=== PATIENT | female | born 1940 | race Caucasian/White ===

== ENCOUNTER 2016-07-20 10:30 | Emergency (ER) | payer BC ==
[2016-07-20 10:36] VITALS: BP 163/93; PULSE 72; TEMP 98.6; BMI 32.5
[2016-07-20] MEDS ORDERED: ALBUTEROL SO4 2.5/IPRATROPIUM 0.5 INH SOL 3 ML VIAL.NEB. NEB ONE ×2 (11:09→11:13)
[2016-07-20] MEDS ORDERED: predniSONE 20 MG TABLET (UD) PO ONE (11:10)
[2016-07-20] MEDS ORDERED: predniSONE 20 MG TABLET (UD) ONE (11:13)
--- NOTE | 2016-07-20 11:16 | PDOC ---
History of Present Illness - General Chief Complaint: Cold Symptoms Stated Complaint: COUGH Time Seen by Provider: 07/20/16 11:06 History Source: Patient Exam Limitations: No Limitations - History of Present Illness Initial Comments: 07/20/16 19:02 76 yr female with cough for 4 days productive phlegm. no chest pain or fever, no shortness of breath. Pt is a non smoker, history of HTN. Pt using OTC meds with no relief. Past History - Past Medical History Allergies/Adverse Reactions: Allergies Allergy/AdvReac Type Severity Reaction Status Date / Time No Known Allergies Allergy Verified 07/20/16 10:36 Home Medications: Ambulatory Orders Albuterol Sulfate Inhaler - [Ventolin HFA Inhaler -] 1 - 2 inh PO Q4H #1 inhaler 07/20/16 Azithromycin [Zithromax 250mg Tablets -] 250 mg PO UTDICT #6 tab 07/20/16 Prednisone [Deltasone -] 40 mg PO DAILY #10 tablet 07/20/16 Anemia: No Asthma: No Cardiac Disorders: No GI Disorders: Yes (GERD) HTN: Yes - Surgical History Abdominal Surgery: Yes - Family Disease History Comment:: 07/20/16 19:03 unk - Psycho/Social/Smoking Cessation Hx Anxiety: No Suicidal Ideation: No Smoking Status: No Smoking History: Never smoked Have you smoked in the past 12 months: No Number of Cigarettes Smoked Daily: 0 Information on smoking cessation initiated: No Hx Alcohol Use: No Drug/Substance Use Hx: No Substance Use Type: None Hx Substance Use Treatment: No Respiratory Specific PMHX - Complaint Specific PMHX Angina: No Bronchitis: Yes Pneumonia: No Pulmonary Embolus: No TB (Tuberculosis): No Review of Systems - Review of Systems Able to Perform ROS?: Yes Is the patient limited Kazakh proficient: No Constitutional: No: Symptoms Reported HEENTM: No: Symptoms Reported Respiratory: Yes: See HPI, Cough *Physical Exam - Vital Signs Last Vital Signs Temp Pulse Resp BP Pulse Ox 98.6 F 72 18 163/93 97 07/20/16 10:31 07/20/16 10:31 07/20/16 10:31 07/20/16 10:31 07/20/16 10:31 - Physical Exam General Appearance: Yes: Nourished, Appropriately Dressed HEENT: positive: EOMI, NAVEDEP, Normal ENT Inspection, TMs Normal, Pharynx Normal Neck: positive: Supple. negative: Tender Respiratory/Chest: positive: Rhonchi. negative: Wheezing Cardiovascular: positive: Regular Rhythm, Regular Rate Gastrointestinal/Abdominal: positive: Normal Bowel Sounds, Soft Musculoskeletal: positive: Normal Inspection Extremity: positive: Normal Capillary Refill, Normal Inspection, Normal Range of Motion Integumentary: positive: Normal Color, Dry, Warm Neurologic: positive: Fully Oriented, Alert, Normal Mood/Affect, Normal Response , Motor Strength 5/5 Medical Decision Making - Medical Decision Making 07/20/16 19:03 cc: cough productive phlegm getting worse scattered coarse rhonchi on exam will treat for bronchitis pt stable, stable vitals speaking clearly no distress *DC/Admit/Observation/Transfer Diagnosis at time of Disposition: Bronchitis - Discharge Dispostion Disposition: HOME Condition at time of disposition: Stable - Prescriptions Prescriptions: Prednisone [Deltasone -] 40 mg PO DAILY #10 tablet Albuterol Sulfate Inhaler - [Ventolin HFA Inhaler -] 1 - 2 inh PO Q4H #1 inhaler Azithromycin [Zithromax 250mg Tablets -] 250 mg PO UTDICT #6 tab - Referrals Referrals: Holger Wetzel MD [Primary Care Provider] - - Patient Instructions Printed Discharge Instructions: DI for Acute Bronchitis Additional Instructions: drink pleanty of water to stay well hydrated take the medications as prescribed follow with your doctor on Friday or Friday for follow up Return if any worsening symptoms
== END 2016-07-20 11:29 | disposition home or self-care (01) ==
LOC: JERFT 10:30
PROC: 3E0F7GC Introduction of Other Therapeutic Substance into Respiratory Tract, Via Natural or Artificial Opening (ICD-10-PCS; principal; 2016-07-20)
DX: J20.9 Acute bronchitis, unspecified (principal); I10 Essential (primary) hypertension
CPT/HCPCS: 94640; 99281-25

== ENCOUNTER 2017-08-13 13:11 | Emergency (ER) | payer BC ==
[2017-08-13 13:20] VITALS: BP 177/80; PULSE 66; TEMP 97.4; BMI 33.8
--- NOTE | 2017-08-13 15:44 | PDOC ---
History of Present Illness - General Chief Complaint: Wound Stated Complaint: LT ANKLE PAIN Time Seen by Provider: 08/13/17 15:44 - History of Present Illness Initial Comments: 08/13/17 18:00 The patient is a 77 year old female with no significant past medical history who presents to the ED complaining of approximately 1 month of a left ankle wound with surrounding pain. She states she was seen by her doctor in the past, who prescribed her a topical treatment without relief. No redness or warmth. Denies edema. No fever or chills. No nausea, vomiting, or diarrhea. Denies trauma or injury. Denies CP/SOB. Past History - Past Medical History Allergies/Adverse Reactions: Allergies Allergy/AdvReac Type Severity Reaction Status Date / Time No Known Allergies Allergy Verified 08/13/17 13:16 Home Medications: Ambulatory Orders Albuterol Sulfate Inhaler - [Ventolin HFA Inhaler -] 1 - 2 inh PO Q4H #1 inhaler 07/20/16 Azithromycin [Zithromax 250mg Tablets -] 250 mg PO UTDICT #6 tab 07/20/16 predniSONE [Deltasone -] 40 mg PO DAILY #10 tablet 07/20/16 Anemia: No Asthma: No Cardiac Disorders: No COPD: No GI Disorders: Yes (GERD) HTN: Yes - Surgical History Abdominal Surgery: Yes - Suicide/Smoking/Psychosocial Hx Smoking Status: No Smoking History: Never smoked Have you smoked in the past 12 months: No Number of Cigarettes Smoked Daily: 0 Hx Alcohol Use: No Drug/Substance Use Hx: No Substance Use Type: None Hx Substance Use Treatment: No Review of Systems - Review of Systems Comments:: 08/13/17 18:03 GENERAL/CONSTITUTIONAL: No fever or chills. No weakness. HEAD, EYES, EARS, NOSE AND THROAT: No change in vision. No ear pain or discharge. No sore throat. GASTROINTESTINAL: No nausea, vomiting, diarrhea or constipation. GENITOURINARY: No dysuria, frequency, or change in urination. CARDIOVASCULAR: No chest pain or shortness of breath. RESPIRATORY: No cough, wheezing, or hemoptysis. MUSCULOSKELETAL: No joint or muscle swelling or pain. No neck or back pain. SKIN: + L ankle ulcer NEUROLOGIC: No headache, vertigo, loss of consciousness, or change in strength/ sensation. ENDOCRINE: No increased thirst. No abnormal weight change. HEMATOLOGIC/LYMPHATIC: No anemia, easy bleeding, or history of blood clots. ALLERGIC/IMMUNOLOGIC: No hives or skin allergy. *Physical Exam - Vital Signs Last Vital Signs Temp Pulse Resp BP Pulse Ox 97.4 F L 66 15 177/80 98 08/13/17 13:16 08/13/17 13:16 08/13/17 13:16 08/13/17 13:16 08/13/17 13:16 - Physical Exam Comments: 08/13/17 18:05 GENERAL: Awake, alert, and fully oriented, in no acute distress HEAD: No signs of trauma EYES: PERRLA, EOMI, sclera anicteric, conjunctiva clear ENT: Poor dentition, oropharynx clear without exudates. Moist mucosa NECK: Normal ROM, supple, no lymphadenopathy, JVD, or masses LUNGS: Breath sounds equal, clear to auscultation bilaterally. No wheezes, and no crackles HEART: Regular rate and rhythm, normal S1 and S2, no murmurs, rubs or gallops ABDOMEN: Soft, nontender, normoactive bowel sounds. No guarding, no rebound. No masses EXTREMITIES: Normal range of motion, no edema. No clubbing or cyanosis. No cords, erythema, or tenderness. 2+ DP and radial pulses. Normal cap refill in UE /LE. BACK: No midline spinal tenderness in cervical/thoracic/lumbar region NEUROLOGICAL: Normal speech, cranial nerves intact, negative pronator drift, 5/ 5 strength in all 4 extremities, normal sensation to light touch in all 4 extremities, normal cerebellar exam, normal gait using walker, normal reflexes and tone SKIN: L lateral malleolus with 1 x 0.5cm oval clean punched out, dry, ulcer with no evidence of erythema, warmth, purulent discharge. Otherwise, skin is warm, Dry, normal turgor, no rashes or lesions noted. ED Treatment Course - RADIOLOGY Radiology Studies Ordered: Category Date Time Status ANKLE & FOOT-LEFT* [RAD] Stat Radiology 08/13/17 14:43 Ordered Medical Decision Making - Medical Decision Making 08/13/17 19:01 77-year-old female with a history of hypertension, GERD presents emergency Department with 1 month of left ankle ulcer. Vitals with elevated blood pressure in triage, on my exam 150/84. Exam consistent with likely venous stasis ulcer, does not appear to be infected. Patient given Tylenol for pain control and referred to Dr. Castro. Patient requests discharge home. I discussed the physical exam findings, ancillary test results and final diagnoses with the patient. I answered all of the patient's questions. The patient was satisfied with the care received and felt comfortable with the discharge plan and treatment plan. The patient will call their primary care physician within 24 hours to arrange follow-up and will return to the Emergency Department with any new, persistent or worsening symptoms. *DC/Admit/Observation/Transfer Diagnosis at time of Disposition: Ankle ulcer - Discharge Dispostion Disposition: HOME Decision to Admit order: No - Referrals Referrals: Holger Wetzel MD [Primary Care Provider] - Pedrito Castro MD [Staff Physician] - - Patient Instructions Printed Discharge Instructions: Venous Stasis Ulcer Additional Instructions: Call Dr. Castro's office for a follow up appointment with a vascular doctor within 1 week. Follow up with your primary doctor within 1 week. Return to the emergency department if you have any new, worsening, or concerning symptoms. - Post Discharge Activity - Attestations Physician Attestion: 08/13/17 19:06 I, Dr. Mia Magana MD, attest that this document has been prepared under my direction and personally reviewed by me in its entirety. I further attest, that it accurately reflects all work, treatment, procedures and medical decision -making performed by me.
[2017-08-13] MEDS ORDERED: ACETAMINOPHEN 500 MG TABLET (FP) PO ONE (18:57)
[2017-08-13] MEDS ORDERED: ACETAMINOPHEN 325 MG TABLET (FP) ONE (18:58)
== END 2017-08-13 19:40 | disposition home or self-care (01) ==
LOC: JER 13:11
DX: I83.023 Varicose veins of left lower extremity with ulcer of ankle (principal); L97.321 Non-pressure chronic ulcer of left ankle limited to breakdown of skin; I10 Essential (primary) hypertension; K21.9 Gastro-esophageal reflux disease without esophagitis
CPT/HCPCS: 73610-TC-LT-FY; 73630-TC-LT; 99281-25

== ENCOUNTER 2018-01-21 07:53 | Inpatient (IN) | payer BC, OTHER ==
--- NOTE | 2018-01-21 08:28 | PDOC ---
History of Present Illness - History of Present Illness Initial Comments: This patient is a 77 year female with PMHx of GERD and HTN, who presents with diarrhea, abdominal pain since last night. Patient states that she had [employer] last night. She states that last night she began experiencing abdominal pain and multiple episodes of diarrhea. She also complains of diffuse b/l leg and back pain, cough, chills, and nausea. She states that she took an immodium this morning and called an ambulance because she was worried. She states that her diarrhea has stopped since she arrived. She denies any vomiting, fever. Allergies: None Past surgical history: None reported Social History: No alcohol, tobacco or drug use reported <Poonam Dimas - Last Filed: 01/21/18 09:36> <Di Prakash - Last Filed: 01/21/18 10:23> - General Chief Complaint: Pain Stated Complaint: ABD PAIN Time Seen by Provider: 01/21/18 08:09 Past History <Poonam Dimas - Last Filed: 01/21/18 09:36> - Past Medical History Anemia: No Asthma: No Cardiac Disorders: No COPD: No GI Disorders: Yes (GERD) HTN: Yes - Surgical History Abdominal Surgery: Yes - Suicide/Smoking/Psychosocial Hx Smoking Status: No Smoking History: Never smoked Have you smoked in the past 12 months: No Number of Cigarettes Smoked Daily: 0 Information on smoking cessation initiated: No Hx Alcohol Use: No Drug/Substance Use Hx: No Substance Use Type: None Hx Substance Use Treatment: No <Di Prakash - Last Filed: 01/21/18 10:23> - Past Medical History Allergies/Adverse Reactions: Allergies Allergy/AdvReac Type Severity Reaction Status Date / Time No Known Allergies Allergy Verified 01/21/18 08:03 Home Medications: Ambulatory Orders Metoprolol Succinate [Toprol XL -] 50 mg PO BID 09/05/17 Losartan/Hydrochlorothiazide [Losartan-Hctz 100-25 mg Tab] 1 each PO DAILY #14 tablet 10/08/17 Review of Systems - Review of Systems Comments:: GENERAL/CONSTITUTIONAL: No fever, +chills. No weakness. HEAD, EYES, EARS, NOSE AND THROAT: No change in vision. No ear pain or discharge. No sore throat. CARDIOVASCULAR: No chest pain or shortness of breath. RESPIRATORY: No cough, wheezing, or hemoptysis. GASTROINTESTINAL: +nausea, no vomiting,+ diarrhea, no constipation. GENITOURINARY: No dysuria, frequency, or change in urination. MUSCULOSKELETAL: + b/l leg pain. + back pain. No neck pain SKIN: No rash NEUROLOGIC: No headache, vertigo, loss of consciousness, or change in strength/ sensation. ENDOCRINE: No increased thirst. No abnormal weight change. HEMATOLOGIC/LYMPHATIC: No anemia, easy bleeding, or history of blood clots. ALLERGIC/IMMUNOLOGIC: No hives or skin allergy. <Poonam Dimas - Last Filed: 01/21/18 09:36> *Physical Exam - Vital Signs Last Vital Signs Temp Pulse Resp BP Pulse Ox 98.4 F 101 H 16 138/73 94 L 01/21/18 07:53 01/21/18 07:53 01/21/18 07:53 01/21/18 07:53 01/21/18 07:53 - Physical Exam Comments: GENERAL: Awake, alert, and fully oriented, in no acute distress HEAD: No signs of trauma EYES: PERRLA, EOMI, sclera anicteric, conjunctiva clear ENT: Auricles normal inspection, hearing grossly normal, nares patent, oropharynx clear without exudates. Dry mucosa LUNGS: Breath sounds equal, clear to auscultation bilaterally. No wheezes, and no crackles HEART: Regular rate and rhythm, normal S1 and S2, no murmurs, rubs or gallops ABDOMEN: Soft, nontender, normoactive bowel sounds. No guarding, no rebound. No masses EXTREMITIES: Normal range of motion, no edema. No clubbing or cyanosis. No cords, erythema, or tenderness NEUROLOGICAL: Cranial nerves II through XII grossly intact. Normal speech, normal gait SKIN: Warm, Dry, normal turgor, no rashes or lesions noted. <Poonam Dimas - Last Filed: 01/21/18 09:36> - Vital Signs Last Vital Signs Temp Pulse Resp BP Pulse Ox 98.4 F 101 H 16 138/73 94 L 01/21/18 07:53 01/21/18 07:53 01/21/18 07:53 01/21/18 07:53 01/21/18 07:53 <Di Prakash - Last Filed: 01/21/18 10:23> Heart Score/ECG Review - ECG Intrepretation Comment:: 01/21/18 10:23 sinus at 98, nl axis, nl interval, no acute st/t wave findings <Di Prakash - Last Filed: 01/21/18 10:23> ED Treatment Course - LABORATORY CBC & Chemistry Diagram: 01/21/18 08:39 01/21/18 08:39 - ADDITIONAL ORDERS Additional order review: 01/21/18 08:39 RBC 4.64 MCV 93.5 MCHC 32.6 RDW 15.0 MPV 8.1 Neutrophils % 91.6 H D Lymphocytes % 2.5 L D Monocytes % 5.4 Eosinophils % 0.3 D Basophils % 0.2 - Medications Given in the ED: ED Medications Discontinued Medications Generic Name Dose Route Start Last Admin Trade Name Freq PRN Reason Stop Dose Admin Sodium Chloride 1,000 ml 01/21/18 08:36 01/21/18 09:02 Normal Saline - IV 01/21/18 08:37 1,000 ml ONCE ONE Administration <Poonam Dimas - Last Filed: 01/21/18 09:36> - LABORATORY CBC & Chemistry Diagram: 01/21/18 08:39 01/21/18 08:39 <Di Prakash - Last Filed: 01/21/18 10:23> Medical Decision Making - Medical Decision Making 01/21/18 09:04 a/p: 77yo female with multiple episodes of diarrhea this am. -no n/v -no f/c -no abd pain -had cramping with diarrhea earlier today -c/o dry cough -will send labs, ivf hydration -abd is soft and nontender -pt is nontoxic in appearance -suspect viral syndrome -will send labs, cxr, ekg -will monitor and reassess 01/21/18 09:55 pt with RLL infiltrate on cxr - pt with cough, concerning for PNA elevated WBC will admit for iv abx pmd is dr. llanes - call placed to dr. erazo blood cultures and lactate added 01/21/18 10:[address] Erazo who accepts pt to service Pt with SIRS and pna - sepsis without septic shock <Di Prakash - Last Filed: 01/21/18 10:23> *DC/Admit/Observation/Transfer - Attestations Scribe Attestion: 01/21/18 09:38 Documentation prepared by Poonam Dimas, acting as medical instrument technician for Di Prakash DO. <Poonam Dimas - Last Filed: 01/21/18 09:36> - Discharge Dispostion Decision to Admit order: Yes - Attestations Physician Attestion: 01/21/18 09:56 I, Dr. Di Prakash DO, attest that this document has been prepared under my direction and personally reviewed by me in its entirety. I further attest, that it accurately reflects all work, treatment, procedures and medical decision -making performed by me. <Di Prakash - Last Filed: 01/21/18 10:23> Diagnosis at time of Disposition: Pneumonia, Sepsis - Discharge Dispostion Condition at time of disposition: Guarded - Referrals Referrals: Hloger Llanes MD [Primary Care Provider] - - Patient Instructions - Post Discharge Activity
[2018-01-21] MEDS ORDERED: SODIUM CHLORIDE 0.9% 1000 ML INFUS.BAG IV ONE ×3 (08:36→15:07)
[2018-01-21 09:06] LABS: BASO % 0.2 % (0-2.0); EOS % 0.3 % (0-4.5); HEMATOCRIT 43.4 % (32.4-45.2); HEMOGLOBIN 14.2 GM/dL (10.7-15.3); LYMPH % 2.5 % (8-40); MCH 30.5 pg (25.7-33.7); MCHC 32.6 g/dl (32.0-36.0); MEAN CELL VOLUME 93.5 fl (80-96); MEAN PLT VOLUME 8.1 fl (7.5-11.1); MONO % 5.4 % (3.8-10.2); NEUT % 91.6 % (42.8-82.8); PLATELET COUNT 232 K/MM3 (134-434); RBC 4.64 M/mm3 (3.60-5.2); WHITE BLOOD COUNT 20.3 K/mm3 (4.0-10.0)
[2018-01-21 09:40] LABS: ALBUMIN 3.2 g/dl (3.4-5.0); ALK PHOS 108 U/L (45-117); ANION GAP 8 MMOL/L (8-16); BILIRUBIN,TOTAL 0.8 mg/dL (0.2-1); BLOOD UREA NITROGEN 19 mg/dL (7-18); CALCIUM 8.9 mg/dL (8.5-10.1); CHLORIDE 102 mmol/L (98-107); CO2 26 mmol/L (21-32); CREATININE 0.9 mg/dL (0.55-1.3); GLUCOSE,RANDOM 177 mg/dL (74-106); LIPASE 103 U/L (73-393); MAGNESIUM 1.6 mg/dL (1.8-2.4); POTASSIUM 3.8 mmol/L (3.5-5.1); SGOT/AST 53 U/L (15-37); SGPT/ALT 60 U/L (13-61); SODIUM 137 mmol/L (136-145); TOT PROT 7.2 g/dl (6.4-8.2)
[2018-01-21] MEDS ORDERED: AZITHROMYCIN IVPB 500 MG in DEXTROSE 5%-WATER - 250 ML IVPB ONE (09:54)
[2018-01-21] MEDS ORDERED: CEFTRIAXONE 1 GM in DEXTROSE 5%-WATER - 100 ML IVPB ONE (09:54)
[2018-01-21] MEDS ORDERED: CEFTRIAXONE 1 GM/50 ML BAG ONE (10:07)
[2018-01-21] MEDS ORDERED: AZITHROMYCIN IVPB 500 MG/250 ML BAG IVPB ONE (10:07)
[2018-01-21 11:05] LABS: ANISOCYTOSIS 1+; MACROCYTOSIS 1+; PLATELET ESTIMATE NORMAL
[2018-01-21] MEDS ORDERED: ONDANSETRON 4 MG/2 ML VIAL IVPUSH PRN (11:42)
[2018-01-21] MEDS ORDERED: ALBUTEROL SO4 0.083% IH SOL 2.5 MG/3 ML VIAL.NEB. NEB PRN (11:42)
[2018-01-21] MEDS ORDERED: ACETAMINOPHEN 325 MG TABLET (FP) PO PRN (11:42)
[2018-01-21] MEDS ORDERED: SODIUM CHLORIDE 1,000 ML IV SCH (11:45)
--- NOTE | 2018-01-21 11:53 | HP ---
Admitting History and Physical - Primary Care Physician PCP: Holger Wetzel - Admission Chief Complaint: I feel sick History of Present Illness: Ms Valle is a very pleasant 77 year old female who comes with nausea, diarrhea , and coughing. She says the coughing began two weeks ago. It was minimally productive with white sputum. She saw Dr Wetzel and finished a course of zithromax as an outpatient. Initially she felt better but then the coughing returned. She was going to follow up next week, however this morning she had an episode of nausea without vomiting and diarrhea. She says she went to the bathroom 3 times and the stool was soft and formed, not loose or liquid. But since it was so frequent she took some imodium and came in. Currently aside from the cough she says she is feeling fine. The nausea has resolved and she is not having pain. She denies fevers, chills, lightheadedness, dizziness, passing out, chest pain or pressure, shortness of breath, abdominal pain, difficulty or pain on urination, or swelling. History Source: Patient Limitations to Obtaining History: No Limitations - Past Medical History Cardiovascular: Yes: HTN - Past Surgical History Past Surgical History: Yes: None - Smoking History Smoking history: Never smoked Have you smoked in the past 12 months: No Aproximately how many cigarettes per day: 0 - Alcohol/Substance Use Hx Alcohol Use: No History of Substance Use: reports: None - Social History Usual Living Arrangement: Yes: Alone ADL: Independent History of Recent Travel: No Home Medications - Allergies Allergies/Adverse Reactions: Allergies Allergy/AdvReac Type Severity Reaction Status Date / Time No Known Allergies Allergy Verified 01/21/18 08:03 - Home Medications Home Medications: Ambulatory Orders Metoprolol Succinate [Toprol XL -] 50 mg PO BID 09/05/17 Losartan/Hydrochlorothiazide [Losartan-Hctz 100-25 mg Tab] 1 each PO DAILY #14 tablet 10/08/17 Family Disease History - Family Disease History Family Disease History: Diabetes: Mother Review of Systems Findings/Remarks: full review of systems obtained, as per HPI and otherwise negative Physical Examination Vital Signs: Vital Signs Temperature 36.9 C 01/21/18 07:53 Pulse Rate 101 H 01/21/18 07:53 Respiratory Rate 16 01/21/18 07:53 Blood Pressure 138/73 01/21/18 07:53 O2 Sat by Pulse Oximetry (%) 94 L 01/21/18 07:53 Constitutional: Yes: No Distress, Calm, Obese Eyes: Yes: Conjunctiva Clear, EOM Intact, PERRL HENT: Yes: Atraumatic, Normocephalic Cardiovascular: Yes: Regular Rate and Rhythm. No: Gallop, Murmur, Rub Respiratory: Yes: Regular, CTA Bilaterally, Other (no egophony). No: Rales, Rhonchi, Wheezes Gastrointestinal: Yes: Normal Bowel Sounds, Soft. No: Distention, Tenderness Extremities: Yes: WNL Edema: No Labs: CBC, BMP 01/21/18 08:39 01/21/18 08:39 Imaging - Results Chest X-ray: Report Reviewed, Image Reviewed EKG: Image Reviewed Problem List - Problems (1) Pneumonia Assessment/Plan: -patient with CAP that failed outpatient therapy -admit to med/surg -start rocephin and zithromax -recent paper showing benefit of solumedrol in treating pneumonia -will start solumedrol 40mg IV daily, benefit from 5 day course -lactobacillus Code(s): J18.9 - PNEUMONIA, UNSPECIFIED ORGANISM (2) Sepsis Assessment/Plan: -secondary to pneumonia -as evidenced by lactic acidosis, leukocytosis, and tachycardia -treat underlying infection -hydration with IVF Code(s): A41.9 - SEPSIS, UNSPECIFIED ORGANISM (3) Hypertension Assessment/Plan: -controlled -will start outpatient losartan/HCTZ and toprol xl -however low threshold to stop HCTZ Code(s): I10 - ESSENTIAL (PRIMARY) HYPERTENSION (4) Lactic acidosis Assessment/Plan: -secondary to pneumonia -hydration with IVF Code(s): E87.2 - ACIDOSIS (5) Diarrhea Assessment/Plan: -sounds more like loose stool than diarrhea -complicated by the fact patient took imodium -will monitor, especially if leukocytosis worsens -if recurs will check for c diff since recently on zithromax Code(s): R19.7 - DIARRHEA, UNSPECIFIED
[2018-01-21] MEDS: methylPREDNISolone NA SUCC 40 MG/1 ML VIAL IVPUSH SCH (12:13)
[2018-01-21] MEDS ORDERED: methylPREDNISolone NA SUCC 40 MG/1 ML VIAL ONE (12:15)
[2018-01-21] MEDS ORDERED: ACETAMINOPHEN 325 MG TABLET (FP) ONE (12:15)
--- NOTE | 2018-01-21 13:00 | EKG ---
Test Reason : Blood Pressure : / mmHG Vent. Rate : 098 BPM Atrial Rate : 098 BPM P-R Int : 162 ms QRS Dur : 074 ms QT Int : 330 ms P-R-T Axes : 056 017 058 degrees QTc Int : 421 ms POOR DATA QUALITY, INTERPRETATION MAY BE ADVERSELY AFFECTED NORMAL SINUS RHYTHM ANTEROSEPTAL INFARCT (CITED ON OR BEFORE 08-OCT-2017) ABNORMAL ECG WHEN COMPARED WITH ECG OF 08-OCT-2017 17:27, VENT. RATE HAS INCREASED BY 36 BPM Confirmed by SINTIA HOLLINS, CAROLINE ([id number]) on 01/21/2018 1:00:18 PM Referred By: Confirmed By:CAROLINE PATRICIO MD
[2018-01-21 15:21] LABS: URINE APPEARANCE SLCLOUDY; URINE BILIRUBIN NEGATIVE (<2.0 mg/dL); URINE COLOR YELLOW; URINE GLUCOSE (UA) NEGATIVE (NEGATIVE); URINE KETONE NEGATIVE (NEGATIVE); URINE LEUK ESTERASE 1+ (NEGATIVE); URINE NITRITE NEGATIVE (NEGATIVE); URINE PROTEIN NEGATIVE (NEGATIVE); URINE UROBILINOGEN NEGATIVE mg/dL (0.2-1.0)
[2018-01-21] MEDS: LACTOBACILLUS ACIDOPHILUS 1 TABLET PO SCH (15:21)
[2018-01-21 15:45] LABS: EPI CELLS RARE /HPF (FEW); URINE BACTERIA RARE /hpf (NONE SEEN); URINE HYALINE CAST 3 /lpf; URINE MUCUS RARE
[2018-01-21] MEDS ORDERED: SODIUM CHLORIDE 500 ML IV STA (23:09)
[2018-01-22 00:16] VITALS: BMI 35.7
[2018-01-22 08:13] LABS: BASO % 0.2 % (0-2.0); HEMATOCRIT 37.9 % (32.4-45.2); LYMPH % 5.1 % (8-40); MCHC 31.7 g/dl (32.0-36.0); MEAN CELL VOLUME 94.6 fl (80-96); MEAN PLT VOLUME 8.6 fl (7.5-11.1); MONO % 7.2 % (3.8-10.2); NEUT % 87.5 % (42.8-82.8); PLATELET COUNT 229 K/MM3 (134-434); RBC 4.01 M/mm3 (3.60-5.2); RDW 15.6 % (11.6-15.6)
[2018-01-22 08:21] LABS: WHITE BLOOD COUNT 32.3 K/mm3 (4.0-10.0)
[2018-01-22 08:39] LABS: ANION GAP 7 MMOL/L (8-16); BLOOD UREA NITROGEN 17 mg/dL (7-18); CALCIUM 8.4 mg/dL (8.5-10.1); CHLORIDE 111 mmol/L (98-107); CO2 28 mmol/L (21-32); CREATININE 0.7 mg/dL (0.55-1.3); GLUCOSE,RANDOM 139 mg/dL (74-106); MAGNESIUM 1.8 mg/dL (1.8-2.4); PHOSPHOROUS 2.6 mg/dL (2.5-4.9); POTASSIUM 4.2 mmol/L (3.5-5.1); SODIUM 146 mmol/L (136-145)
[2018-01-22] MEDS ORDERED: PATIENT'S OWN MEDICATION (NON-FORMULARY) (Losartan/Hydrochlorothiazide [Losartan-Hctz 100- PO SCH ×2 (10:00)
[2018-01-22] MEDS ORDERED: DEXTROSE 5%-WATER - 50 ML IVPB ONE (10:20)
[2018-01-22] MEDS ORDERED: PT OWN MED DRAWER 7, Y5N ONE (10:20)
[2018-01-22] MEDS ORDERED: cefTRIAXone SODIUM 1 GM VIAL ONE (10:20)
[2018-01-22] MEDS: CEFTRIAXONE 1 GM in DEXTROSE 5%-WATER - 50 ML IVPB SCH (10:26)
[2018-01-22] MEDS: methylPREDNISolone NA SUCC 40 MG/1 ML VIAL IVPUSH SCH (10:26)
[2018-01-22] MEDS: LOSARTAN POTASSIUM 50 MG TABLET (FP) PO SCH (10:26)
[2018-01-22] MEDS: LACTOBACILLUS ACIDOPHILUS 1 TABLET PO SCH (10:26)
[2018-01-22] MEDS: HYDROCHLOROTHIAZIDE 25 MG TABLET (FP) PO SCH (10:26)
[2018-01-22] MEDS: ENOXAPARIN NA (PORCINE) 40 MG/0.4 ML DISP.SYRIN SQ SCH (10:27)
[2018-01-22] MEDS: AZITHROMYCIN IVPB 500 MG/250 ML BAG IVPB SCH (10:28)
[2018-01-22 10:56] LABS: ANISOCYTOSIS 1+; MACROCYTOSIS 1+; PLATELET ESTIMATE NORMAL
--- NOTE | 2018-01-22 12:02 | PN ---
Progress Note, Physician Chief Complaint: Ms Valle says the coughing is better but not yet resolved. Having acid reflux this morning, she states she has a history of this. No cp, sob, n/v. No diarrhea currently, had a normal bowel movement this am. - Current Medication List Current Medications: Active Medications Acetaminophen (Tylenol -) 650 mg PO Q4H PRN PRN Reason: FEVER Last Admin: 01/21/18 12:10 Dose: 650 mg Albuterol Sulfate (Ventolin 0.083% Nebulizer Soln -) 1 amp NEB Q6H PRN PRN Reason: SHORT OF BREATH/WHEEZING Enoxaparin Sodium (Lovenox -) 40 mg SQ DAILY [facility] Last Admin: 01/22/18 10:27 Dose: 40 mg Hydrochlorothiazide (Hctz -) 25 mg PO DAILY [facility] Last Admin: 01/22/18 10:26 Dose: 25 mg Azithromycin (Zithromax 500mg Ivpb (Pre-Docked)) 500 mg in 250 mls @ 250 mls/ hr IVPB DAILY [facility] Last Admin: 01/22/18 10:28 Dose: 250 mls/hr Ceftriaxone Sodium 1 gm/ (Dextrose) 50 mls @ 100 mls/hr IVPB DAILY [facility]; Protocol Last Admin: 01/22/18 10:26 Dose: 100 mls/hr Lactobacillus Acidophilus (Bacid -) 1 tab PO DAILY [facility] Last Admin: 01/22/18 10:26 Dose: 1 tab Losartan Potassium (Cozaar -) 100 mg PO DAILY [facility] Last Admin: 01/22/18 10:26 Dose: 100 mg Methylprednisolone Sodium Succinate (Solu-Medrol -) 40 mg IVPUSH DAILY [facility] Last Admin: 01/22/18 10:26 Dose: 40 mg Metoprolol Succinate (Toprol Xl -) 50 mg PO BID [facility] Last Admin: 01/22/18 10:26 Dose: 50 mg Ondansetron HCl (Zofran Injection) 4 mg IVPUSH Q6H PRN PRN Reason: NAUSEA Pantoprazole Sodium (Protonix -) 40 mg PO DAILY [facility] - Objective Vital Signs: Vital Signs Temperature 36.6 C 01/22/18 10:00 Pulse Rate 78 01/22/18 10:00 Respiratory Rate 18 01/22/18 10:00 Blood Pressure 161/86 01/22/18 10:00 O2 Sat by Pulse Oximetry (%) 95 01/21/18 21:00 Constitutional: Yes: Well Nourished, No Distress, Calm Cardiovascular: Yes: Regular Rate and Rhythm. No: Gallop, Murmur, Rub Respiratory: Yes: Regular, CTA Bilaterally. No: Rales, Rhonchi, Wheezes Extremities: Yes: WNL Edema: No Labs: CBC, BMP 01/22/18 07:00 01/22/18 07:00 Problem List - Problems (1) Pneumonia Code(s): J18.9 - PNEUMONIA, UNSPECIFIED ORGANISM (2) Sepsis Code(s): A41.9 - SEPSIS, UNSPECIFIED ORGANISM (3) Hypertension Code(s): I10 - ESSENTIAL (PRIMARY) HYPERTENSION (4) Lactic acidosis Code(s): E87.2 - ACIDOSIS (5) Diarrhea Code(s): R19.7 - DIARRHEA, UNSPECIFIED (6) GERD (gastroesophageal reflux disease) Code(s): K21.9 - GASTRO-ESOPHAGEAL REFLUX DISEASE WITHOUT ESOPHAGITIS Assessment/Plan (1) Pneumonia Assessment/Plan: -improving -continue rocephin and zithromax day 2 -continue solumedrol 40mg IV daily day 2 -afebrile for 24 hours Code(s): J18.9 - PNEUMONIA, UNSPECIFIED ORGANISM (2) Sepsis Assessment/Plan: -resolved -has increasing leukocytosis but suspect secondary to solumedrol -monitor Code(s): A41.9 - SEPSIS, UNSPECIFIED ORGANISM (3) Hypertension Assessment/Plan: -elevated secondary to steroids -may need to hold HCTZ if sodium increases Code(s): I10 - ESSENTIAL (PRIMARY) HYPERTENSION (4) Lactic acidosis Assessment/Plan: -resolved Code(s): E87.2 - ACIDOSIS (5) Diarrhea Assessment/Plan: -resolved Code(s): R19.7 - DIARRHEA, UNSPECIFIED (6) GERD -start protonix
[2018-01-22] MEDS: PANTOPRAZOLE 40 MG TABLET (FP) PO SCH (12:07)
[2018-01-23 07:31] LABS: BASO % 0.1 % (0-2.0); EOS % 0.1 % (0-4.5); HEMATOCRIT 33.9 % (32.4-45.2); LYMPH % 9.9 % (8-40); MCH 30.5 pg (25.7-33.7); MCHC 32.4 g/dl (32.0-36.0); MEAN CELL VOLUME 94.1 fl (80-96); MEAN PLT VOLUME 8.4 fl (7.5-11.1); MONO % 7.1 % (3.8-10.2); NEUT % 82.8 % (42.8-82.8); PLATELET COUNT 225 K/MM3 (134-434); RDW 15.2 % (11.6-15.6); WHITE BLOOD COUNT 22.4 K/mm3 (4.0-10.0)
[2018-01-23 08:38] LABS: ANION GAP 5 MMOL/L (8-16); BLOOD UREA NITROGEN 22 mg/dL (7-18); CALCIUM 8.9 mg/dL (8.5-10.1); CHLORIDE 108 mmol/L (98-107); CO2 29 mmol/L (21-32); CREATININE 0.8 mg/dL (0.55-1.3); GLUCOSE,RANDOM 187 mg/dL (74-106); MAGNESIUM 1.9 mg/dL (1.8-2.4); POTASSIUM 4.7 mmol/L (3.5-5.1); SODIUM 142 mmol/L (136-145)
[2018-01-23 10:40] LABS: ANISOCYTOSIS 1+; MACROCYTOSIS 1+; PLATELET ESTIMATE NORMAL
[2018-01-23] MEDS ORDERED: cefTRIAXone SODIUM 1 GM VIAL ONE ×2 (10:53→10:54)
[2018-01-23] MEDS ORDERED: DEXTROSE 5%-WATER - 50 ML IVPB ONE ×2 (10:54)
[2018-01-23] MEDS: CEFTRIAXONE 1 GM in DEXTROSE 5%-WATER - 50 ML IVPB SCH (11:08)
[2018-01-23] MEDS: AZITHROMYCIN IVPB 500 MG/250 ML BAG IVPB SCH (11:11)
[2018-01-23] MEDS: HYDROCHLOROTHIAZIDE 25 MG TABLET (FP) PO SCH (11:12)
[2018-01-23] MEDS: ENOXAPARIN NA (PORCINE) 40 MG/0.4 ML DISP.SYRIN SQ SCH (11:12)
[2018-01-23] MEDS: LACTOBACILLUS ACIDOPHILUS 1 TABLET PO SCH (11:13)
[2018-01-23] MEDS: PANTOPRAZOLE 40 MG TABLET (FP) PO SCH (11:13)
[2018-01-23] MEDS: LOSARTAN POTASSIUM 50 MG TABLET (FP) PO SCH (11:14)
[2018-01-23] MEDS: methylPREDNISolone NA SUCC 40 MG/1 ML VIAL IVPUSH SCH (11:14)
--- NOTE | 2018-01-23 13:29 | PN ---
Progress Note, Physician Chief Complaint: Ms Valle still having cough but much improved. No cp, sob, n/v. - Current Medication List Current Medications: Active Medications Acetaminophen (Tylenol -) 650 mg PO Q4H PRN PRN Reason: FEVER Last Admin: 01/21/18 12:10 Dose: 650 mg Albuterol Sulfate (Ventolin 0.083% Nebulizer Soln -) 1 amp NEB Q6H PRN PRN Reason: SHORT OF BREATH/WHEEZING Enoxaparin Sodium (Lovenox -) 40 mg SQ DAILY [facility] Last Admin: 01/23/18 11:12 Dose: 40 mg Hydrochlorothiazide (Hctz -) 25 mg PO DAILY [facility] Last Admin: 01/23/18 11:12 Dose: 25 mg Azithromycin (Zithromax 500mg Ivpb (Pre-Docked)) 500 mg in 250 mls @ 250 mls/ hr IVPB DAILY [facility] Last Admin: 01/23/18 11:11 Dose: 250 mls/hr Ceftriaxone Sodium 1 gm/ (Dextrose) 50 mls @ 100 mls/hr IVPB DAILY [facility]; Protocol Last Admin: 01/23/18 11:08 Dose: 100 mls/hr Lactobacillus Acidophilus (Bacid -) 1 tab PO DAILY [facility] Last Admin: 01/23/18 11:13 Dose: 1 tab Losartan Potassium (Cozaar -) 100 mg PO DAILY [facility] Last Admin: 01/23/18 11:14 Dose: 100 mg Methylprednisolone Sodium Succinate (Solu-Medrol -) 40 mg IVPUSH DAILY [facility] Last Admin: 01/23/18 11:14 Dose: 40 mg Metoprolol Succinate (Toprol Xl -) 50 mg PO BID [facility] Last Admin: 01/23/18 11:12 Dose: 50 mg Ondansetron HCl (Zofran Injection) 4 mg IVPUSH Q6H PRN PRN Reason: NAUSEA Pantoprazole Sodium (Protonix -) 40 mg PO DAILY [facility] Last Admin: 01/23/18 11:13 Dose: 40 mg - Objective Vital Signs: Vital Signs Temperature 36.7 C 01/23/18 10:00 Pulse Rate 69 01/23/18 10:00 Respiratory Rate 18 01/23/18 10:00 Blood Pressure 134/95 01/23/18 10:00 O2 Sat by Pulse Oximetry (%) 96 01/22/18 21:00 Constitutional: Yes: Well Nourished, No Distress, Calm Cardiovascular: Yes: Regular Rate and Rhythm. No: Gallop, Murmur, Rub Respiratory: Yes: Regular, CTA Bilaterally, Cough (minimal). No: Rales, Rhonchi , Wheezes Gastrointestinal: Yes: Normal Bowel Sounds, Soft. No: Distention, Tenderness Extremities: Yes: WNL Edema: No Labs: CBC, BMP 01/23/18 06:50 01/23/18 06:50 Problem List - Problems (1) Pneumonia Code(s): J18.9 - PNEUMONIA, UNSPECIFIED ORGANISM (2) Sepsis Code(s): A41.9 - SEPSIS, UNSPECIFIED ORGANISM (3) Hypertension Code(s): I10 - ESSENTIAL (PRIMARY) HYPERTENSION (4) Lactic acidosis Code(s): E87.2 - ACIDOSIS (5) Diarrhea Code(s): R19.7 - DIARRHEA, UNSPECIFIED (6) GERD (gastroesophageal reflux disease) Code(s): K21.9 - GASTRO-ESOPHAGEAL REFLUX DISEASE WITHOUT ESOPHAGITIS Assessment/Plan (1) Pneumonia Assessment/Plan: -improving -continue rocephin and zithromax day 3 -continue solumedrol 40mg IV daily day 3 -remains afebrile Code(s): J18.9 - PNEUMONIA, UNSPECIFIED ORGANISM (2) Sepsis Assessment/Plan: -resolved -leukocytosis improving, falsely elevated secondary to solumedrol Code(s): A41.9 - SEPSIS, UNSPECIFIED ORGANISM (3) Hypertension Assessment/Plan: -elevated secondary to steroids -continue current regimen Code(s): I10 - ESSENTIAL (PRIMARY) HYPERTENSION (4) Lactic acidosis Assessment/Plan: -resolved Code(s): E87.2 - ACIDOSIS (5) Diarrhea Assessment/Plan: -resolved Code(s): R19.7 - DIARRHEA, UNSPECIFIED (6) GERD -continue protonix Dispo -possible discharge tomorrow if WBC improved or stable -change to prednisone on discharge for 5 day course
[2018-01-24] MEDS: guaiFENesin 200 MG/10 ML 10 ML UNIT-DOSE CUPS PO PRN ×2 (01:38→11:03)
[2018-01-24 07:27] LABS: BASO % 0.6 % (0-2.0); EOS % 2.3 % (0-4.5); LYMPH % 14.2 % (8-40); MCH 30.1 pg (25.7-33.7); MCHC 32.3 g/dl (32.0-36.0); MEAN CELL VOLUME 93.2 fl (80-96); MEAN PLT VOLUME 8.6 fl (7.5-11.1); MONO % 9.7 % (3.8-10.2); NEUT % 73.2 % (42.8-82.8); PLATELET COUNT 263 K/MM3 (134-434); RBC 3.97 M/mm3 (3.60-5.2); WHITE BLOOD COUNT 14.8 K/mm3 (4.0-10.0)
[2018-01-24 08:16] LABS: ANION GAP 9 MMOL/L (8-16); BLOOD UREA NITROGEN 18 mg/dL (7-18); CALCIUM 9.2 mg/dL (8.5-10.1); CHLORIDE 106 mmol/L (98-107); CO2 28 mmol/L (21-32); CREATININE 0.8 mg/dL (0.55-1.3); GLUCOSE,RANDOM 163 mg/dL (74-106); MAGNESIUM 1.7 mg/dL (1.8-2.4); PHOSPHOROUS 3.7 mg/dL (2.5-4.9); POTASSIUM 4.2 mmol/L (3.5-5.1); SODIUM 142 mmol/L (136-145)
[2018-01-24] MEDS ORDERED: cefTRIAXone SODIUM 1 GM VIAL ONE (10:01)
[2018-01-24] MEDS ORDERED: DEXTROSE 5%-WATER - 50 ML IVPB ONE (10:01)
[2018-01-24] MEDS ORDERED: ALBUTEROL SO4 8 GM HFA INHALER IH PRN (10:37)
--- NOTE | 2018-01-24 10:55 | DS ---
Physical Examination Vital Signs: Vital Signs Temperature 97.7 F 01/24/18 05:00 Pulse Rate 98 H 01/24/18 05:00 Respiratory Rate 20 01/24/18 05:00 Blood Pressure 144/83 01/24/18 05:00 O2 Sat by Pulse Oximetry (%) 95 01/23/18 21:00 Constitutional: Yes: Well Nourished, No Distress, Calm Cardiovascular: Yes: Regular Rate and Rhythm. No: Gallop, Murmur, Rub Respiratory: Yes: Regular, CTA Bilaterally. No: Rales, Rhonchi, Wheezes Extremities: Yes: WNL Edema: No Labs: CBC, BMP 01/24/18 06:30 01/24/18 06:30 Discharge Summary Reason For Visit: PNEUMONIA Current Active Problems Diarrhea (Acute) GERD (gastroesophageal reflux disease) (Acute) Lactic acidosis (Acute) Pneumonia (Acute) Sepsis (Acute) Procedures: Principal: Chest X ray Rt LL and ML Infiltrates Hospital Course: 77 yrs old f independent H/O HTN , GERD admitted with cough fever SOB on admission w/u shows elevated TWBC, Lactic acid, clinical dehydration, CXR RT Perhilar and LL Pneumonia, cultures are -ve responded to IV abx (Ceftriaxone and azithromycin) and Bronchodilators TWBC is trending normal, mild Hypomagnesemia corrected, patient is hemodynamically stable afebrile Saturating well wants to go home will be DC Home to F/U with his PMD, Patient needs a short course of Bronchodilators and PO Prednisone for reactive air way disease secondary to Pneumonia. Time Spent: 38 minutes Condition: Improved - Instructions Diet, Activity, Other Instructions: As advised Referrals: Holger Wetzel MD [Primary Care Provider] - 01/27/18 Disposition: HOME - Home Medications Comprehensive Discharge Medication List: Ambulatory Orders Metoprolol Succinate [Toprol XL -] 50 mg PO BID 09/05/17 Losartan/Hydrochlorothiazide [Losartan-Hctz 100-25 mg Tab] 1 each PO DAILY #14 tablet 10/08/17 Albuterol Sulfate Inhaler - [Ventolin HFA Inhaler -] 2 puff IH Q4H PRN 10 Days # 1 inhaler 01/24/18 Guaifenesin [Robitussin -] 10 ml PO Q6H PRN cup 01/24/18 Pantoprazole Sodium [Protonix -] 40 mg PO DAILY #14 tablet.ec 01/24/18 levoFLOXacin [Levaquin -] 500 mg PO DAILY #7 tablet 01/24/18 predniSONE [Deltasone -] 30 mg PO DAILY 5 Days #5 tablet 01/24/18
[2018-01-24] MEDS: LACTOBACILLUS ACIDOPHILUS 1 TABLET PO SCH (11:03)
[2018-01-24] MEDS: ENOXAPARIN NA (PORCINE) 40 MG/0.4 ML DISP.SYRIN SQ SCH (11:04)
[2018-01-24] MEDS: PANTOPRAZOLE 40 MG TABLET (FP) PO SCH (11:04)
[2018-01-24] MEDS: CEFTRIAXONE 1 GM in DEXTROSE 5%-WATER - 50 ML IVPB SCH (11:05)
[2018-01-24] MEDS: LOSARTAN POTASSIUM 50 MG TABLET (FP) PO SCH (11:21)
[2018-01-24] MEDS: HYDROCHLOROTHIAZIDE 25 MG TABLET (FP) PO SCH (11:21)
[2018-01-24] MEDS ORDERED: MAGNESIUM 1GM/D5W - 1 GM/100 ML IVPB IVPB ONE (12:00)
[2018-01-24] MEDS: methylPREDNISolone NA SUCC 40 MG/1 ML VIAL IVPUSH SCH (12:17)
[2018-01-24] MEDS: AZITHROMYCIN IVPB 500 MG/250 ML BAG IVPB SCH (12:17)
[2018-01-24] MEDS ORDERED: MAGNESIUM SULF 50% (8.12 MEQ/2 ML-1 GM VIAL) IVPB ONE (12:30)
[2018-01-24 12:43] LABS: ANISOCYTOSIS 0; MACROCYTOSIS 0; PLATELET ESTIMATE NORMAL
--- NOTE | 2018-01-24 14:48 | PN ---
Progress Note, Physician Chief Complaint: Nurse noticed black soft stool - Current Medication List Current Medications: Active Medications Acetaminophen (Tylenol -) 650 mg PO Q4H PRN PRN Reason: FEVER Last Admin: 01/21/18 12:10 Dose: 650 mg Albuterol Sulfate (Ventolin 0.083% Nebulizer Soln -) 1 amp NEB Q6H PRN PRN Reason: SHORT OF BREATH/WHEEZING Albuterol Sulfate (Ventolin Hfa Inhaler -) 2 puff IH Q4H PRN PRN Reason: SHORT OF BREATH/WHEEZING Enoxaparin Sodium (Lovenox -) 40 mg SQ DAILY [facility] Last Admin: 01/24/18 11:04 Dose: 40 mg Guaifenesin (Robitussin -) 10 ml PO Q6H PRN PRN Reason: COUGH Last Admin: 01/24/18 11:03 Dose: 10 ml Hydrochlorothiazide (Hctz -) 25 mg PO DAILY [facility] Last Admin: 01/24/18 11:21 Dose: 25 mg Azithromycin (Zithromax 500mg Ivpb (Pre-Docked)) 500 mg in 250 mls @ 250 mls/ hr IVPB DAILY [facility] Last Admin: 01/24/18 12:17 Dose: 250 mls/hr Ceftriaxone Sodium 1 gm/ (Dextrose) 50 mls @ 100 mls/hr IVPB DAILY [facility]; Protocol Last Admin: 01/24/18 11:05 Dose: 100 mls/hr Lactobacillus Acidophilus (Bacid -) 1 tab PO DAILY [facility] Last Admin: 01/24/18 11:03 Dose: 1 tab Levofloxacin (Levaquin -) 500 mg PO DAILY@0600 [facility]S [facility] 234 B[facility]S AT [facility] Losartan Potassium (Cozaar -) 100 mg PO DAILY [facility] Last Admin: 01/24/18 11:21 Dose: 100 mg Metoprolol Succinate (Toprol Xl -) 50 mg PO BID [facility] 234 [facility] AT [facility] Last Admin: 01/24/18 11:21 Dose: 50 mg Ondansetron HCl (Zofran Injection) 4 mg IVPUSH Q6H PRN PRN Reason: NAUSEA Pantoprazole Sodium (Protonix -) 40 mg PO DAILY [facility] Last Admin: 01/24/18 11:04 Dose: 40 mg Pantoprazole Sodium (Protonix Iv) 40 mg IVPUSH BID [facility] 234 [facility]S AT [facility] Prednisone (Deltasone -) 30 mg PO DAILY [facility]S AT [facility] - Objective Vital Signs: Vital Signs Temperature 97.6 F 01/24/18 11:00 Pulse Rate 92 H 01/24/18 11:00 Respiratory Rate 18 01/24/18 11:00 Blood Pressure 170/100 01/24/18 11:00 O2 Sat by Pulse Oximetry (%) 95 01/23/18 21:00 Constitutional: Well Nourished, No Distress, Calm HEENT: MM moist no anemia Cardiovascular: Regular Rate and Rhythm. No: Gallop, Murmur, Rub GI: Soft non tender Bs + Respiratory: Yes: Regular, CTA Bilaterally. 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 x3 non focal Labs: CBC, BMP 01/24/18 06:30 01/24/18 06:30 Problem List - Problems (1) Black stool Assessment/Plan: Patient was schedule to discharged home nurse notice a black stool, hemodynamically stable will DC discharge NPO except Meds IV PPI, Stool occult blood, GI consult, Type and screen serial H/H , NPO except meds till cleared by GI Code(s): K92.1 - MELENA (2) Pneumonia Assessment/Plan: Community acquired cont IV Ceftriaxone and Azithromycine improving Code(s): J18.9 - PNEUMONIA, UNSPECIFIED ORGANISM (3) Sepsis Assessment/Plan: resolving on Current abx CBC trending normal , cultures are -ve. Code(s): A41.9 - SEPSIS, UNSPECIFIED ORGANISM (4) Hypertension Assessment/Plan: Well controlled cont all home meds Code(s): I10 - ESSENTIAL (PRIMARY) HYPERTENSION (5) GERD (gastroesophageal reflux disease) Assessment/Plan: On PPI Code(s): K21.9 - GASTRO-ESOPHAGEAL REFLUX DISEASE WITHOUT ESOPHAGITIS
--- NOTE | 2018-01-24 16:02 | CON.GI ---
Consult Consult Specialty:: Gastroenterology Referred by:: Sowmya Granda MD Reason for Consultation:: Black stool - History of Present Illness Chief Complaint: Passed a bloody BM today History of Present Illness: 77F admitted for pneumonia develped melena today. She denies abdominal pain and vomiting. She takes ibuprofen every 4 hours while at home for arthritis. Had EGD with Dr Lane over 10 years ago and was told of a large hiatal hernia. Had a colonoscopy with me in 2011 for C diff colitis but cannot recall results. C scan then revealed diverticulosis She also had a workup for chronic liver disease in 2011 that was unrevealing. She denies any h/o liver disease and quit alcohol several years ago. She never abused it. - History Source History Provided By: Patient, Medical Record Limitations to Obtaining History: No Limitations - Past Medical History Cardio/Vascular: Yes: HTN, Hyperlipdemia Pulmonary: Yes: Pneumonia Gastrointestinal: Yes: Diverticulosis, Hiatal Hernia, Other (C diff colitis 2011 ) Hepatobiliary: Yes: Cholelithiasis Musculoskeletal: Yes: Osteoarthritis - Past Surgical History Past Surgical History: Yes: Hysterectomy (TAHBSO for fibroids), Tonsillectomy - Alcohol/Substance Use Hx Alcohol Use: No History of Substance Use: reports: None - Smoking History Smoking history: Never smoked Have you smoked in the past 12 months: No Aproximately how many cigarettes per day: 0 - Social History Usual Living Arrangement: Alone () ADL: Independent 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 [employer] History of Recent Travel: No Home Medications - Allergies Allergies/Adverse Reactions: Allergies Allergy/AdvReac Type Severity Reaction Status Date / Time No Known Allergies Allergy Verified 01/21/18 08:03 - Home Medications Home Medications: Ambulatory Orders Metoprolol Succinate [Toprol XL -] 50 mg PO BID 09/05/17 Losartan/Hydrochlorothiazide [Losartan-Hctz 100-25 mg Tab] 1 each PO DAILY #14 tablet 10/08/17 Albuterol Sulfate Inhaler - [Ventolin HFA Inhaler -] 2 puff IH Q4H PRN 10 Days # 1 inhaler 01/24/18 Guaifenesin [Robitussin -] 10 ml PO Q6H PRN cup 01/24/18 Pantoprazole Sodium [Protonix -] 40 mg PO DAILY #14 tablet.ec 01/24/18 levoFLOXacin [Levaquin -] 500 mg PO DAILY #7 tablet 01/24/18 predniSONE [Deltasone -] 30 mg PO DAILY 5 Days #5 tablet 01/24/18 Family Disease History - Family Disease History Family Disease History: Diabetes: Mother, Other: Father ( of CVA i his 50s) , Mother Review of Systems - Review of Systems Constitutional: reports: Chills Eyes: reports: No Symptoms HENT: reports: No Symptoms Neck: reports: No Symptoms Cardiovascular: reports: No Symptoms Respiratory: reports: Cough, SOB Gastrointestinal: reports: Melena Musculoskeletal: reports: Joint Pain Physical Exam-GI Vital Signs: Vital Signs Temperature 97.7 F 01/24/18 15:31 Pulse Rate 78 01/24/18 15:37 Respiratory Rate 18 01/24/18 15:37 Blood Pressure 190/100 H 01/24/18 15:37 O2 Sat by Pulse Oximetry (%) 95 01/23/18 21:00 Laboratory Tests 10/08/17 01/21/18 01/22/18 17:30 08:39 07:00 Hgb 13.6 14.2 12.0 01/23/18 01/24/18 06:50 06:30 Hgb 11.0 12.0 Constitutional: Yes: Calm Eyes: Yes: EOM Intact HENT: Yes: Normocephalic Neck: Yes: Supple Cardiovascular: Yes: Regular Rate and Rhythm Respiratory: Yes: CTA Bilaterally Gastrointestinal Inspection: Yes: Scars (healed Pfannensteil incision) ...Auscultate: Yes: Normoactive Bowel Sounds ...Palpate: Yes: Soft, Other (nontender) ...Rectal Exam: Yes: Guaiac Positive (black strongly guaiac positive stool) Edema: No Neurological: Yes: Alert, Oriented Labs: CBC, BMP 01/24/18 15:08 01/24/18 06:30 Problem List - Problems (1) Gastrointestinal hemorrhage with melena Assessment/Plan: I suspect that the melena reflects an NSAID induced erosive gastritis/ duodenitis or ulcer bleed. I will start a PPI drip . I have discussed EGD in detail including informing Veronica of the potential for such complications as perforation and hemorrhage. She has signed an informed consent. I have arranged it for 01/26 but it will be done emergently if necessary. Await repeat CBC. Discussed case with Dr Granda Code(s): K92.1 - MELENA (2) Hiatal hernia Code(s): K44.9 - DIAPHRAGMATIC HERNIA WITHOUT OBSTRUCTION OR GANGRENE (3) Diverticulosis Code(s): K57.90 - DVRTCLOS OF INTEST, PART UNSP, W/O PERF OR ABSCESS W/O BLEED (4) History of Clostridium difficile colitis Code(s): Z86.19 - PERSONAL HISTORY OF OTHER INFECTIOUS AND PARASITIC DISEASES
[2018-01-24] MEDS: D5-1/2NS+10 MEQ KCL - 10 MEQ/1,000 ML INFUS.BAG IV SCH (16:14)
[2018-01-24 17:33] LABS: BASO % 0.3 % (0-2.0); EOS % 0.3 % (0-4.5); HEMATOCRIT 37.9 % (32.4-45.2); HEMOGLOBIN 12.8 GM/dL (10.7-15.3); LYMPH % 5.2 % (8-40); MCH 31.2 pg (25.7-33.7); MCHC 33.8 g/dl (32.0-36.0); MEAN CELL VOLUME 92.2 fl (80-96); MEAN PLT VOLUME 8.1 fl (7.5-11.1); MONO % 3.2 % (3.8-10.2); PLATELET COUNT 262 K/MM3 (134-434); RBC 4.11 M/mm3 (3.60-5.2); RDW 14.9 % (11.6-15.6); WHITE BLOOD COUNT 10.7 K/mm3 (4.0-10.0)
[2018-01-24] MEDS: PANTOPRAZOLE SODIUM 80 MG in SODIUM CHLORIDE 100 ML IVPB SCH (18:56)
[2018-01-24 19:59] LABS: PLATELET ESTIMATE ADEQUATE
[2018-01-24 21:20] LABS: BASO % 0.3 % (0-2.0); EOS % 0.1 % (0-4.5); HEMATOCRIT 37.3 % (32.4-45.2); HEMOGLOBIN 12.4 GM/dL (10.7-15.3); LYMPH % 8.1 % (8-40); MCH 30.8 pg (25.7-33.7); MCHC 33.1 g/dl (32.0-36.0); MEAN CELL VOLUME 92.8 fl (80-96); MEAN PLT VOLUME 8.4 fl (7.5-11.1); MONO % 4.3 % (3.8-10.2); NEUT % 87.2 % (42.8-82.8); PLATELET COUNT 274 K/MM3 (134-434); RBC 4.01 M/mm3 (3.60-5.2); WHITE BLOOD COUNT 9.8 K/mm3 (4.0-10.0)
[2018-01-24] MEDS ORDERED: PANTOPRAZOLE SODIUM 40 MG VIAL IVPUSH SCH (22:00)
[2018-01-24 22:33] LABS: PLATELET ESTIMATE ADEQUATE
[2018-01-25] MEDS: PANTOPRAZOLE SODIUM 80 MG in SODIUM CHLORIDE 100 ML IVPB SCH ×3 (02:38→23:53)
[2018-01-25] MEDS: D5-1/2NS+10 MEQ KCL - 10 MEQ/1,000 ML INFUS.BAG IV SCH (05:25)
[2018-01-25 07:26] LABS: BASO % 0.4 % (0-2.0); EOS % 0.2 % (0-4.5); HEMATOCRIT 34.8 % (32.4-45.2); HEMOGLOBIN 11.4 GM/dL (10.7-15.3); LYMPH % 13.9 % (8-40); MCH 30.5 pg (25.7-33.7); MCHC 32.6 g/dl (32.0-36.0); MEAN CELL VOLUME 93.6 fl (80-96); MEAN PLT VOLUME 8.5 fl (7.5-11.1); MONO % 9.4 % (3.8-10.2); NEUT % 76.1 % (42.8-82.8); PLATELET COUNT 247 K/MM3 (134-434); RBC 3.72 M/mm3 (3.60-5.2); RDW 14.6 % (11.6-15.6); WHITE BLOOD COUNT 13.7 K/mm3 (4.0-10.0)
[2018-01-25 07:59] LABS: INR 1.06 (0.83-1.09); PROTHROMBIN TIME (PATIENT) 12.5 SEC (9.7-13.0)
[2018-01-25 08:06] LABS: ALBUMIN 2.7 g/dl (3.4-5.0); ALK PHOS 95 U/L (45-117); ANION GAP 8 MMOL/L (8-16); BILIRUBIN,DIRECT 0.2 mg/dL (0.0-0.2); BILIRUBIN,TOTAL 0.4 mg/dL (0.2-1); BLOOD UREA NITROGEN 14 mg/dL (7-18); CALCIUM 8.4 mg/dL (8.5-10.1); CHLORIDE 103 mmol/L (98-107); CO2 29 mmol/L (21-32); CREATININE 0.9 mg/dL (0.55-1.3); GLUCOSE,RANDOM 262 mg/dL (74-106); POTASSIUM 4.1 mmol/L (3.5-5.1); SGOT/AST 36 U/L (15-37); SGPT/ALT 74 U/L (13-61); SODIUM 139 mmol/L (136-145); TOT PROT 6.3 g/dl (6.4-8.2)
[2018-01-25 09:30] LABS: ANISOCYTOSIS 1+; MACROCYTOSIS 1+; PLATELET ESTIMATE NORMAL
[2018-01-25] MEDS ORDERED: cefTRIAXone SODIUM 1 GM VIAL ONE (09:42)
[2018-01-25] MEDS ORDERED: DEXTROSE 5%-WATER - 50 ML IVPB ONE (09:43)
[2018-01-25] MEDS: LOSARTAN POTASSIUM 50 MG TABLET (FP) PO SCH (09:46)
[2018-01-25] MEDS: HYDROCHLOROTHIAZIDE 25 MG TABLET (FP) PO SCH (09:46)
[2018-01-25] MEDS: LACTOBACILLUS ACIDOPHILUS 1 TABLET PO SCH (09:46)
[2018-01-25] MEDS ORDERED: predniSONE 10 MG TABLET (UD) PO SCH (10:00)
[2018-01-25] MEDS: CEFTRIAXONE 1 GM in DEXTROSE 5%-WATER - 50 ML IVPB SCH (11:34)
--- NOTE | 2018-01-25 11:37 | PN ---
Progress Note, Physician Chief Complaint: yesterday Nurse noticed black soft stool - Current Medication List Current Medications: Active Medications Acetaminophen (Tylenol -) 650 mg PO Q4H PRN PRN Reason: FEVER Last Admin: 01/21/18 12:10 Dose: 650 mg Albuterol Sulfate (Ventolin 0.083% Nebulizer Soln -) 1 amp NEB Q6H PRN PRN Reason: SHORT OF BREATH/WHEEZING Albuterol Sulfate (Ventolin Hfa Inhaler -) 2 puff IH Q4H PRN PRN Reason: SHORT OF BREATH/WHEEZING Guaifenesin (Robitussin -) 10 ml PO Q6H PRN PRN Reason: COUGH Last Admin: 01/24/18 11:03 Dose: 10 ml Hydrochlorothiazide (Hctz -) 25 mg PO DAILY [facility] Last Admin: 01/25/18 09:46 Dose: 25 mg Azithromycin (Zithromax 500mg Ivpb (Pre-Docked)) 500 mg in 250 mls @ 250 mls/ hr IVPB DAILY [facility] Last Admin: 01/24/18 12:17 Dose: 250 mls/hr Ceftriaxone Sodium 1 gm/ (Dextrose) 50 mls @ 100 mls/hr IVPB DAILY [facility]; Protocol Last Admin: 01/24/18 11:05 Dose: 100 mls/hr Pantoprazole Sodium 80 mg/ (Sodium Chloride) 100 mls @ 10 mls/hr IVPB Q10H [facility] Last Admin: 01/25/18 02:38 Dose: 10 mls/hr Lactobacillus Acidophilus (Bacid -) 1 tab PO DAILY [facility] Last Admin: 01/25/18 09:46 Dose: 1 tab Losartan Potassium (Cozaar -) 100 mg PO DAILY [facility] Last Admin: 01/25/18 09:46 Dose: 100 mg Metoprolol Succinate (Toprol Xl -) 50 mg PO BID [facility] Last Admin: 01/25/18 09:46 Dose: 50 mg Ondansetron HCl (Zofran Injection) 4 mg IVPUSH Q6H PRN PRN Reason: NAUSEA Last Admin: 01/24/18 19:52 Dose: 4 mg - Objective Vital Signs: Vital Signs Temperature 97.5 F L 01/25/18 09:35 Pulse Rate 80 01/25/18 09:35 Respiratory Rate 18 01/25/18 09:35 Blood Pressure 159/88 01/25/18 09:35 O2 Sat by Pulse Oximetry (%) 96 01/24/18 21:00 Constitutional: Well Nourished, No Distress, Calm HEENT: MM moist no anemia Cardiovascular: Regular Rate and Rhythm. No: Gallop, Murmur, Rub GI: Soft non tender Bs + Respiratory: Yes: Regular, CTA Bilaterally. No: Rales, Rhonchi, Wheezes Extremities: Trace edema LEAD NURSE: AO x3 non focal Labs: CBC, BMP 01/25/18 06:00 01/25/18 06:00 INR, PTT INR 1.06 (0.83-1.09) 01/25/18 06:00 Problem List - Problems (1) Black stool Assessment/Plan: Patient was schedule to discharged home nurse notice a black stool, no black stool since yesterday hemodynamically stable evaluated by GI on IV PPI, , GI consult, serial H/H stable , NPO after mid night Code(s): K92.1 - MELENA (2) Pneumonia Assessment/Plan: Community acquired cont IV Ceftriaxone and Azithromycine improving Code(s): J18.9 - PNEUMONIA, UNSPECIFIED ORGANISM (3) Sepsis Assessment/Plan: resolving on Current abx CBC trending normal , cultures are -ve. Code(s): A41.9 - SEPSIS, UNSPECIFIED ORGANISM (4) Hypertension Assessment/Plan: Well controlled cont all home meds Code(s): I10 - ESSENTIAL (PRIMARY) HYPERTENSION (5) GERD (gastroesophageal reflux disease) Assessment/Plan: On PPI Code(s): K21.9 - GASTRO-ESOPHAGEAL REFLUX DISEASE WITHOUT ESOPHAGITIS (6) Reactive airway disease Assessment/Plan: DC steroids on Duo neb PRN Code(s): J45.909 - UNSPECIFIED ASTHMA, UNCOMPLICATED
[2018-01-25] MEDS: AZITHROMYCIN IVPB 500 MG/250 ML BAG IVPB SCH (13:07)
[2018-01-25] MEDS ORDERED: PT OWN MED DRAWER 7, Y5N ONE (14:31)
[2018-01-25] MEDS: INSULIN SLIDING SCALE (NOVOLOG) 1 VIAL SQ SCH (16:27)
[2018-01-26] MEDS: PANTOPRAZOLE SODIUM 80 MG in SODIUM CHLORIDE 100 ML IVPB SCH ×2 (01:43→09:16)
[2018-01-26] MEDS ORDERED: LOSARTAN POTASSIUM 50 MG TABLET (FP) PO ONE (02:45)
[2018-01-26] MEDS: HYDROCHLOROTHIAZIDE 25 MG TABLET (FP) PO SCH ×2 (05:19→12:19)
[2018-01-26 06:06] LABS: SERUM IRON SATURATION 17 % (15-55); TOTAL IRON BINDING CAPACITY 292 ug/dL (250-450); UIBC 243 ug/dL (118-369)
[2018-01-26] MEDS: INSULIN SLIDING SCALE (NOVOLOG) 1 VIAL SQ SCH ×2 (06:11→12:26)
[2018-01-26 07:14] LABS: BASO % 0.9 % (0-2.0); EOS % 5.8 % (0-4.5); HEMATOCRIT 37.6 % (32.4-45.2); HEMOGLOBIN 12.3 GM/dL (10.7-15.3); LYMPH % 19.1 % (8-40); MCH 30.7 pg (25.7-33.7); MCHC 32.8 g/dl (32.0-36.0); MEAN CELL VOLUME 93.5 fl (80-96); MEAN PLT VOLUME 7.9 fl (7.5-11.1); NEUT % 63.2 % (42.8-82.8); PLATELET COUNT 294 K/MM3 (134-434); RBC 4.02 M/mm3 (3.60-5.2); RDW 14.8 % (11.6-15.6); WHITE BLOOD COUNT 10.4 K/mm3 (4.0-10.0)
[2018-01-26 07:38] LABS: ANION GAP 4 MMOL/L (8-16); BLOOD UREA NITROGEN 12 mg/dL (7-18); CALCIUM 9.2 mg/dL (8.5-10.1); CHLORIDE 102 mmol/L (98-107); CO2 35 mmol/L (21-32); CREATININE 0.9 mg/dL (0.55-1.3); GLUCOSE,RANDOM 151 mg/dL (74-106); POTASSIUM 4.3 mmol/L (3.5-5.1); SODIUM 140 mmol/L (136-145)
[2018-01-26] MEDS ORDERED: DEXTROSE 5%-WATER - 50 ML IVPB ONE (11:41)
[2018-01-26] MEDS ORDERED: cefTRIAXone SODIUM 1 GM VIAL ONE (11:41)
--- NOTE | 2018-01-26 11:51 | PN ---
GI Progress Note Subjective: GI Procedure Note: Please see EGD report. GERD above a hiatal hernia and NSAID gastritis was found but there was no active bleeding. Will stop PPI drip and give orally. Diet ordered. No GI objections to discharge. PPI ordered to [facility]. - Objective Vital Signs: Vital Signs Temperature 98.2 F 01/26/18 11:29 Pulse Rate 69 01/26/18 11:29 Respiratory Rate 18 01/26/18 11:29 Blood Pressure 134/72 01/26/18 11:29 O2 Sat by Pulse Oximetry (%) 94 L 01/26/18 11:29 Labs: CBC, BMP 01/26/18 06:40 01/26/18 06:40 INR, PTT INR 1.06 (0.83-1.09) 01/25/18 06:00 Problem List - Problems (1) Gastrointestinal hemorrhage with melena Code(s): K92.1 - MELENA (2) Hiatal hernia Code(s): K44.9 - DIAPHRAGMATIC HERNIA WITHOUT OBSTRUCTION OR GANGRENE (3) Diverticulosis Code(s): K57.90 - DVRTCLOS OF INTEST, PART UNSP, W/O PERF OR ABSCESS W/O BLEED (4) History of Clostridium difficile colitis Code(s): Z86.19 - PERSONAL HISTORY OF OTHER INFECTIOUS AND PARASITIC DISEASES
[2018-01-26] MEDS: LACTOBACILLUS ACIDOPHILUS 1 TABLET PO SCH (12:19)
[2018-01-26] MEDS: CEFTRIAXONE 1 GM in DEXTROSE 5%-WATER - 50 ML IVPB SCH (12:19)
[2018-01-26] MEDS: AZITHROMYCIN IVPB 500 MG/250 ML BAG IVPB SCH (12:21)
--- NOTE | 2018-01-26 12:23 | DS ---
Physical Examination Vital Signs: Vital Signs Temperature 36.8 C 01/26/18 11:29 Pulse Rate 72 01/26/18 12:17 Respiratory Rate 18 01/26/18 11:29 Blood Pressure 139/83 01/26/18 12:17 O2 Sat by Pulse Oximetry (%) 94 L 01/26/18 11:29 Constitutional: Yes: Well Nourished, No Distress, Calm Cardiovascular: Yes: Regular Rate and Rhythm. No: Gallop, Murmur, Rub Respiratory: Yes: Regular, CTA Bilaterally. No: Rales, Rhonchi, Wheezes Gastrointestinal: Yes: Normal Bowel Sounds, Soft. No: Distention, Tenderness Extremities: Yes: WNL Edema: No Labs: CBC, BMP 01/26/18 06:40 01/26/18 06:40 Discharge Summary Reason For Visit: PNEUMONIA Current Active Problems Black stool (Acute) Diarrhea (Acute) Diverticulosis (Acute) GERD (gastroesophageal reflux disease) (Acute) Gastrointestinal hemorrhage with melena (Acute) Hiatal hernia (Acute) History of Clostridium difficile colitis (Acute) Lactic acidosis (Acute) Pneumonia (Acute) Reactive airway disease (Acute) Sepsis (Acute) Hospital Course: Please refer to discharge summary on 01/24 but in short Ms Valle is a very pleasant 77 year old female who presented with CAP that failed outpatient therapy. She was started on rocephin and zithromax and tolerated it well. Recent study out of [facility] shows decreasing morbidity and mortality with addition on IV solumedrol and she was placed on solumedrol 40mg daily. She improved significantly and was planned for discharge on 01/24 but developed black and tarry stool. GI was consulted and she underwent EGD which showed gastritis. She will be discharged home on oral antibiotics and protonix. 32 minutes spent in preparation of this discharge Condition: Improved - Instructions Diet, Activity, Other Instructions: As advised Referrals: Holger Wetzel MD [Primary Care Provider] - 01/27/18 Disposition: HOME - Home Medications Comprehensive Discharge Medication List: Ambulatory Orders Metoprolol Succinate [Toprol XL -] 50 mg PO BID 09/05/17 Losartan/Hydrochlorothiazide [Losartan-Hctz 100-25 mg Tab] 1 each PO DAILY #14 tablet 10/08/17 Albuterol Sulfate Inhaler - [Ventolin HFA Inhaler -] 2 puff IH Q4H PRN 10 Days # 1 inhaler 01/24/18 Guaifenesin [Robitussin -] 10 ml PO Q6H PRN cup 01/24/18 Pantoprazole Sodium [Protonix -] 40 mg PO DAILY #14 tablet.ec 01/24/18 levoFLOXacin [Levaquin -] 500 mg PO DAILY #7 tablet 01/24/18 predniSONE [Deltasone -] 30 mg PO DAILY 5 Days #5 tablet 01/24/18 Pantoprazole Sodium [Protonix] 40 mg PO DAILY #90 tablet. 01/26/18
[2018-01-26 13:43] LABS: ANISOCYTOSIS 0; MACROCYTOSIS 0; PLATELET ESTIMATE NORMAL
[2018-01-26 15:30] VITALS: BP 138/76; PULSE 68; TEMP 98.3
[2018-01-27] MEDS ORDERED: PANTOPRAZOLE 40 MG TABLET (FP) PO SCH (10:00)
[2018-01-28 00:06] LABS: HBSAG SCREEN Negative (Negative); HEP A AB, IGM Negative (Negative); HEP B CORE AB, TOT Negative (Negative)
--- NOTE | 2018-01-28 14:59 | PATH ---
Surgical Pathology Report Patient Name: KELLI EDUARDO [facility]. Rec. #: [id number] /Age/Gender: 1940 (Age: 77) / F Account: [id number] Location: [address] [place] [address] Taken: 01/26/2018 Received: 01/26/2018 Reported: 01/28/2018 Physicians: Noemy Tran M.D. Specimen(s) Received A: BX ANTRUM B: BX GE JUNCTION Clinical History GI bleed Postoperative diagnosis: Erosive gastritis, hiatal hernia, GERD, reflux esophagitis Final Diagnosis A. ANTRUM, BIOPSY: MILD CHRONIC GASTRITIS WITH FEATURES OF REACTIVE GASTROPATHY. IMMUNOSTAIN IS NEGATIVE FOR H PYLORI ORGANISMS. B. GE JUNCTION, BIOPSY: ESOPHAGEAL (SQUAMOUS) MUCOSA WITH NO PATHOLOGIC FINDINGS. NO COLUMNAR EPITHELIUM/INTESTINAL METAPLASIA IS IDENTIFIED. Electronically Signed Callie Olsen M.D. Gross Description A. Received in formalin, labeled "biopsy antrum" are 2 [place], irregular portions of soft tissue measuring 0.2 and 0.3 cm. in greatest dimension. The specimens are submitted in toto in one cassette. B. Received in formalin, labeled "biopsy GE junction" are 2 [place]o, irregular portions of soft tissue measuring 0.2 and 0.4 cm. in greatest dimension. The specimens are submitted in toto in one cassette. 01/26/2018 saudi01/26/2018
== END 2018-01-26 15:55 | disposition home or self-care (01) | DRG 871 ==
LOC: JER 07:53 → JERBED 09:56 → J5S 19:49
PROVIDERS: ADMIT Internal Medicine; ATTEND Internal Medicine
PROC: 0DB68ZX Excision of Stomach, Via Natural or Artificial Opening Endoscopic, Diagnostic (ICD-10-PCS; principal; 2018-01-26 10:30)
DX: A41.9 Sepsis, unspecified organism (principal); J18.9 Pneumonia, unspecified organism; E87.2 Acidosis; K92.1 Melena; R00.0 Tachycardia, unspecified; D72.829 Elevated white blood cell count, unspecified; I10 Essential (primary) hypertension; R19.7 Diarrhea, unspecified; E86.0 Dehydration; E83.42 Hypomagnesemia; K21.0 Gastro-esophageal reflux disease with esophagitis; K57.90 Diverticulosis of intestine, part unspecified, without perforation or abscess without bleeding; K44.9 Diaphragmatic hernia without obstruction or gangrene; T39.395A Adverse effect of other nonsteroidal anti-inflammatory drugs [NSAID], initial encounter; K80.20 Calculus of gallbladder without cholecystitis without obstruction; M19.90 Unspecified osteoarthritis, unspecified site; J45.909 Unspecified asthma, uncomplicated; K29.70 Gastritis, unspecified, without bleeding; Z79.1 Long term (current) use of non-steroidal anti-inflammatories (NSAID); Z86.19 Personal history of other infectious and parasitic diseases
CPT/HCPCS: 36415; 71045-TC-FY; 80048; 80053; 80076; 81003; 81015; 82550; 82553; 82728; 82962; 83036; 83540; 83550; 83605; 83690; 83735; 84100; 84484; 85025; 85610; 86038; 86704; 86706; 86708; 86803; 86850; 86900; 86901; 87040; 87340; 87899; 88305-TC; 93005; 93010; 97116-GP; 97161-GP; 99284-25; J7030

== ENCOUNTER 2018-02-16 15:23 | Emergency (ER) | payer BC, OTHER ==
[2018-02-16 15:31] VITALS: TEMP 97.8; BMI 32.5
--- NOTE | 2018-02-16 15:33 | PDOC ---
Rapid Medical Evaluation Chief Complaint: Pain, Acute Time Seen by Provider: 02/16/18 15:28 Medical Evaluation: Allergies Allergy/AdvReac Type Severity Reaction Status Date / Time No Known Allergies Allergy Verified 01/21/18 08:03 02/16/18 15:29 I have performed a brief in-person evaluation of this patient. The patient presents with a chief complaint of: left shoulder pain, +heavy lifting- no fall or trauma known- pain x 3 days Pertinent physical exam findings: mild capsule pain, fingers feel I have ordered the following: nothing The patient will proceed to the ED for further evaluation. 02/16/18 15:31 Discharge Disposition - Diagnosis Shoulder pain, acute - Referrals Referrals: Holger Wetzel MD [Primary Care Provider] - - Patient Instructions - Post Discharge Activity
--- NOTE | 2018-02-16 15:59 | PDOC ---
History of Present Illness - General Chief Complaint: Pain, Acute Stated Complaint: PAIN IN LEFT ARM Time Seen by Provider: 02/16/18 15:28 History Source: Patient - History of Present Illness Initial Comments: 02/16/18 16:04 The patient is a 77 year old female with a PMH of GERD, HTN and arthritis who presents c/o L knee and R shoulder pain. Patient states the pain has been ongoing for 2-3 days. Knee pain is worse with weight bearing and ambulation and patient cannot identify any exacerbating factors for shoulder pain. Denies any h/o trauma. States she has been taking Advil with some relief of pain. NKDA PMD: Dr. Wetzel As per EMR, patient was last evaluated in our ED in 01/2018 for cough, nausea, abdominal pain. CXR showed PNA and patient was admitted for 5 days. Past History - Past Medical History Allergies/Adverse Reactions: Allergies Allergy/AdvReac Type Severity Reaction Status Date / Time No Known Allergies Allergy Verified 02/16/18 15:31 Home Medications: Ambulatory Orders Metoprolol Succinate [Toprol XL -] 50 mg PO BID 09/05/17 Losartan/Hydrochlorothiazide [Losartan-Hctz 100-25 mg Tab] 1 each PO DAILY #14 tablet 10/08/17 Albuterol Sulfate Inhaler - [Ventolin HFA Inhaler -] 2 puff IH Q4H PRN 10 Days # 1 inhaler 01/24/18 Guaifenesin [Robitussin -] 10 ml PO Q6H PRN cup 01/24/18 Pantoprazole Sodium [Protonix -] 40 mg PO DAILY #14 tablet.ec 01/24/18 levoFLOXacin [Levaquin -] 500 mg PO DAILY #7 tablet 01/24/18 Pantoprazole Sodium [Protonix] 40 mg PO DAILY #90 tablet. 01/26/18 Methocarbamol [Robaxin -] 500 mg PO HS PRN #14 tablet 02/16/18 Anemia: No Asthma: No Cardiac Disorders: No COPD: No GI Disorders: Yes (GERD) HTN: Yes - Surgical History Abdominal Surgery: Yes - Suicide/Smoking/Psychosocial Hx Smoking Status: No Smoking History: Never smoked Have you smoked in the past 12 months: No Number of Cigarettes Smoked Daily: 0 Hx Alcohol Use: No Drug/Substance Use Hx: No Substance Use Type: None Hx Substance Use Treatment: No Review of Systems - Review of Systems Constitutional: No: Chills, Fever HEENTM: No: Blurred Vision, Double Vision Respiratory: No: Cough, Shortness of Breath Cardiac (ROS): No: Chest Pain, Lightheadedness, Palpitations, Syncope ABD/GI: No: Constipated, Diarrhea, Nausea, Vomiting : No: Burning, Dysuria *Physical Exam - Vital Signs Last Vital Signs Temp Pulse Resp BP Pulse Ox 97.8 F 68 18 187/97 H 98 02/16/18 15:27 02/16/18 15:27 02/16/18 15:27 02/16/18 15:27 02/16/18 15:27 - Physical Exam General Appearance: Yes: Nourished, Appropriately Dressed HEENT: positive: Normal Voice, Hearing Grossly Normal Neck: positive: Trachea midline, Supple Respiratory/Chest: positive: Lungs Clear, Normal Breath Sounds Cardiovascular: positive: S1, S2. negative: JVD Vascular Pulses: Dorsalis-Pedis (R): 2+, Doralis-Pedis (L): 2+ Extremity: positive: Other (L shoulder: full ROM, 2+ radial pulse; RLE, no patellar TTP, 2+ DP pulse, non-antalgic gait with walker) Integumentary: positive: Normal Color, Dry Neurologic: positive: Fully Oriented, Alert Medical Decision Making - Medical Decision Making 02/16/18 16:08 77 year old female with R shoulder and L knee pain. Full ROM in both extremities w/2+ pulses. Given patient's age, limited historian will image R shoulder and L knee. Robaxin for pain. Reassess. 02/16/18 17:40 XR negative for acute fracture; noted arthritic changes. Will send patient with Robaxin @ nightime and Advil for symptomatic control. I discussed the physical exam findings, ancillary test results and final diagnoses with the patient. I answered all of the patient's questions. The patient was satisfied with the care received and felt comfortable with the discharge plan and treatment plan. The patient will return to the Emergency Department with any new, persistent or worsening symptoms. *DC/Admit/Observation/Transfer Diagnosis at time of Disposition: Shoulder pain, acute, Knee pain, acute - Discharge Dispostion Disposition: HOME Condition at time of disposition: Good Decision to Admit order: No - Prescriptions Prescriptions: Methocarbamol [Robaxin -] 500 mg PO HS PRN #14 tablet PRN Reason: Pain Level 6-10 - Referrals Referrals: Holger Wetzel MD [Primary Care Provider] - - Patient Instructions Printed Discharge Instructions: DI for Acute Pain -- Adult Additional Instructions: Your x-rays were negative for any fracture of your knee or shoulder. We have sent a prescription for a pain medication to your pharmacy. Please take at nighttime before bed as needed. Follow-up with your primary care doctor for refills. During the day you can take Advil or Motrin (up to 2400 mg daily) for your pain. Return to the Emergency Department for any new/worsening/concerning symptoms. - Post Discharge Activity
[2018-02-16] MEDS ORDERED: METHOCARBAMOL 500 MG TABLET PO ONE (16:09)
[2018-02-16] MEDS ORDERED: METHOCARBAMOL 500 MG TABLET ONE (16:54)
--- NOTE | 2018-02-16 17:11 | PDOC ---
Attending Attestation - Resident Resident Name: JohnnySlime - ED Attending Attestation I have performed the following: I have examined & evaluated the patient, The case was reviewed & discussed with the resident, I agree w/resident's findings & plan, Exceptions are as noted - HPI HPI: 02/16/18 17:10 77-year-old female presents with several days of left shoulder pain and right knee pain. He denies any recent trauma or fall as She does state that she's had chronic right knee pain in the past - Physicial Exam PE: 02/16/18 17:34 Well-nourished well-developed 77-year-old female presents with joint pain. Head normocephalic/atraumatic. Neck supple Lungs clear to auscultation. CVS regular rate and rhythm S1, S2 Abdomen protuberant, soft, nontender. Skin warm and dry. Right knee is able to be fully flexed and extended, she is able to weight-bear, although she has pain when she walks. Left arm. She can fully extend, but she has pain with movement. There is no signs of any ecchymosis or swelling, 2. proprioception is intact, and she has good ulnar, radial pulses 02/16/18 17:36 -ambulates w help of walker,axox3,no foot drop,sensation intact - Medical Decision Making 02/16/18 18:09 radiographs are NEGATIVE for any New fracture or dislocation Patient discharged home with pain meds Impression musculoskeletal pain, arthritis
[2018-02-16 18:09] VITALS: BP 188/76; PULSE 69
== END 2018-02-16 18:14 | disposition home or self-care (01) ==
LOC: JER 15:23
DX: M25.512 Pain in left shoulder (principal); M25.561 Pain in right knee; I10 Essential (primary) hypertension; K21.9 Gastro-esophageal reflux disease without esophagitis; X50.9XXA Other and unspecified overexertion or strenuous movements or postures, initial encounter; Y93.89 Activity, other specified; Y92.038 Other place in apartment as the place of occurrence of the external cause; Y99.8 Other external cause status; Z87.01 Personal history of pneumonia (recurrent)
CPT/HCPCS: 73030-TC-LT-FY; 73562-TC-RT-FY; 99282-25

== ENCOUNTER 2018-04-01 17:05 | Emergency (ER) | payer BC ==
[2018-04-01 17:14] VITALS: BMI 32.1
[2018-04-01] MEDS ORDERED: DEXAMETHASONE LIQUID 0.5 MG/5 ML 240 ML BULK BOTTLE PO ONE (17:33)
--- NOTE | 2018-04-01 17:37 | PDOC ---
History of Present Illness - General Chief Complaint: Cold Symptoms Stated Complaint: Cold Symptoms Time Seen by Provider: 04/01/18 17:30 - History of Present Illness Initial Comments: 04/01/18 17:35 77-year-old female presents with cough times one week no fever multiple comorbidities denies chest pain Past History - Past Medical History Allergies/Adverse Reactions: Allergies Allergy/AdvReac Type Severity Reaction Status Date / Time No Known Allergies Allergy Verified 02/16/18 15:31 Home Medications: Ambulatory Orders Metoprolol Succinate [Toprol XL -] 50 mg PO BID 09/05/17 Losartan/Hydrochlorothiazide [Losartan-Hctz 100-25 mg Tab] 1 each PO DAILY #14 tablet 10/08/17 Albuterol Sulfate Inhaler - [Ventolin HFA Inhaler -] 2 puff IH Q4H PRN 10 Days # 1 inhaler 01/24/18 Guaifenesin [Robitussin -] 10 ml PO Q6H PRN cup 01/24/18 Pantoprazole Sodium [Protonix -] 40 mg PO DAILY #14 tablet.ec 01/24/18 levoFLOXacin [Levaquin -] 500 mg PO DAILY #7 tablet 01/24/18 Pantoprazole Sodium [Protonix] 40 mg PO DAILY #90 tablet.dr 01/26/18 Methocarbamol [Robaxin -] 500 mg PO HS PRN #14 tablet 02/16/18 Anemia: No Asthma: No Cardiac Disorders: No COPD: No GI Disorders: Yes (GERD) HTN: Yes - Surgical History Abdominal Surgery: Yes - Suicide/Smoking/Psychosocial Hx Smoking Status: No Smoking History: Unknown if ever smoked Have you smoked in the past 12 months: No Number of Cigarettes Smoked Daily: 0 Hx Alcohol Use: No Drug/Substance Use Hx: No Substance Use Type: None Hx Substance Use Treatment: No Review of Systems - Review of Systems Constitutional: No: Fever Respiratory: Yes: Cough, Shortness of Breath, Wheezing Cardiac (ROS): No: Chest Pain *Physical Exam - Vital Signs Last Vital Signs Temp Pulse Resp BP Pulse Ox 97.7 F 84 20 179/99 H 97 04/01/18 17:07 04/01/18 17:07 04/01/18 17:07 04/01/18 17:07 04/01/18 17:07 - Physical Exam Comments: 04/01/18 17:35 HEAD: NC/AT EYES: Conjuntiva clear Ears: Canals and TM's normal NOSE: No d/c THROAT: Moist mucous membrances, oral pharanx clear, uvula midline NECK: Supple without adenopathy CARDIAC: S1 S2 LUNGS: Diffuse rhonchi and wheezing bilaterally ABDOMEN: Soft NT ND MS: Full ROM in all joints without edema NEUROLOGIC: No gross sensory or motor deficits, NVID SKIN: Normal color and temperature no lesions or rashes Moderate Sedation - Procedure Monitoring Vital Signs: Procedure Monitoring Vital Signs Temperature 97.7 F 04/01/18 17:07 Pulse Rate 84 04/01/18 17:07 Respiratory Rate 20 04/01/18 17:07 Blood Pressure 179/99 H 04/01/18 17:07 O2 Sat by Pulse Oximetry (%) 97 04/01/18 17:07 ED Treatment Course - RADIOLOGY Radiology Studies Ordered: Category Date Time Status CHEST PA & LAT [RAD] Stat Radiology 04/01/18 17:33 Ordered Medical Decision Making - Medical Decision Making 04/01/18 17:36 77-year-old female with multiple medical comorbidities poorly controlled hypertension, she did take her blood pressure medication today she is still hypertensive she has shortness of breath and wheezing I will transferred to the main emergency room. I have ordered cardiac workup as well as breathing treatments and steroid. *DC/Admit/Observation/Transfer Diagnosis at time of Disposition: Cough - Referrals Referrals: Holger Wetzel MD [Primary Care Provider] - - Patient Instructions - Post Discharge Activity
[2018-04-01 18:09] LABS: EOS % 8.1 % (0-4.5); HEMATOCRIT 36.3 % (32.4-45.2); HEMOGLOBIN 12.7 GM/dL (10.7-15.3); LYMPH % 23.9 % (8-40); MCH 31.2 pg (25.7-33.7); MCHC 34.9 g/dl (32.0-36.0); MEAN CELL VOLUME 89.3 fl (80-96); MEAN PLT VOLUME 7.8 fl (7.5-11.1); MONO % 13.3 % (3.8-10.2); NEUT % 53.7 % (42.8-82.8); PLATELET COUNT 261 K/MM3 (134-434); RBC 4.06 M/mm3 (3.60-5.2); RDW 14.1 % (11.6-15.6); WHITE BLOOD COUNT 6.7 K/mm3 (4.0-10.0)
[2018-04-01 18:45] LABS: ALBUMIN 3.2 g/dl (3.4-5.0); ALK PHOS 113 U/L (45-117); BILIRUBIN,TOTAL 0.2 mg/dL (0.2-1); BLOOD UREA NITROGEN 13 mg/dL (7-18); CALCIUM 8.2 mg/dL (8.5-10.1); CHLORIDE 104 mmol/L (98-107); CO2 27 mmol/L (21-32); CREATININE 1.2 mg/dL (0.55-1.3); GLUCOSE,RANDOM 208 mg/dL (74-106); SGPT/ALT 50 U/L (13-61); SODIUM 139 mmol/L (136-145); TOT PROT 7.3 g/dl (6.4-8.2)
[2018-04-01 18:46] LABS: ANION GAP 7 MMOL/L (8-16); POTASSIUM 3.9 mmol/L (3.5-5.1); SGOT/AST 48 U/L (15-37)
--- NOTE | 2018-04-01 19:18 | PDOC ---
Attending Attestation - HPI HPI: 04/01/18 20:06 The patient is a 77 year old female with a significant PMH of GERD, poorly controlled HTN and arthritis who presents to the emergency department with dry cough and mild shortness of breath for the past week. Patient admits to mild chest pain when coughing but denies chest pain at rest or with walking. The patient denies headache, lightheadedness, and dizziness. Denies fever, chills, nausea, vomit, diarrhea and constipation. Denies dysuria, frequency, urgency and hematuria. Allergies: NKA Past surgical history: None reported. Social history: No reported alcohol, drug or cigarette use. PCP: Dr. Wetzel - Physicial Exam PE: 04/01/18 20:52 ADULT PHYSICAL EXAM Constitutional: Awake, alert, oriented. No acute distress. Head: Normocephalic. Atraumatic Eyes: PERRL. EOMI. Conjunctivae are not pale. ENT: Mucous membranes are moist and intact. Posterior pharynx without exudates or erythema. Uvula midline. Neck: Supple. Full ROM. No lymphadenopathy. Cardiovascular: Regular rate. Regular rhythm. S1, S2 regular. Distal pulses are 2+ and symmetric. Pulmonary/Chest: (+) Wheezing bilaterally. No rales or rhonchi. Abdominal: Soft and non-distended. There is no tenderness. No rebound, guarding or rigidity. No organomegaly. No palpable masses. Good bowel sounds. Back: No CVA tenderness. Musculoskeletal: No edema. No cyanosis. No clubbing. Full range of motion in all extremities. Nocalf tenderness. Radial/pedal pulses are intact and 2+ bilaterally Skin: Skin is warm and dry. No petechiae. No purpura. Neurological: Alert and oriented to person, place, and time. Cranial nerves II -XII are grossly intact. Normal speech. Strength is grossly symmetric. No sensory deficits. Psychiatric: Good eye contact. Normal interaction, affect and behavior. <Margaret Barrett - Last Filed: 04/01/18 20:52> - Resident Resident Name: Naren Menezes - ED Attending Attestation I have performed the following: I have examined & evaluated the patient, The case was reviewed & discussed with the resident, I agree w/resident's findings & plan, Exceptions are as noted - Medical Decision Making 04/01/18 19:18 I, Dr. Di Prakash, DO, attest that this document has been prepared under my direction and personally reviewed by me in its entirety. I further attest, that it accurately reflects all work, treatment, procedures and medical decision -making performed by me. 04/01/18 21:03 a/p: 77yo female with URI -cough, congestion, now with sob and wheezing -no hx of asthma or copd -hx of RAD -states when she gets sick she develops wheezing -has never followed with pulm -pt is nontoxic in appearance -feels better after 1 neb, will repeat nebs bc still with wheezing -cxr clear and labs ordered by fast track are negative -decadron given in fast track -will start azithromycin and albuterol -recommend follow up with pulmonary for furthe reval. -answered all questions. stable for dc to home <Di Prakash - Last Filed: 04/01/18 21:07> Heart Score/ECG Review - ECG Intrepretation Comment:: 04/01/18 21:07 sinus at 78, nl axis, nl interval, q waves anteroseptally that are age indeterminate <Di Prakash - Last Filed: 04/01/18 21:07>
[2018-04-01] MEDS ORDERED: ALBUTEROL SO4 2.5/IPRATROPIUM 0.5 INH SOL 3 ML VIAL.NEB. NEB ONE ×4 (19:19→20:48)
--- NOTE | 2018-04-01 19:27 | PDOC ---
History of Present Illness - General Chief Complaint: Cold Symptoms Stated Complaint: Cold Symptoms Time Seen by Provider: 04/01/18 17:30 History Source: Patient Exam Limitations: No Limitations - History of Present Illness Initial Comments: 77 yo F w a PMH of GERD, poorly controlled HTN and arthritis presents with one week of cold symptoms including a dry cough, congestion, chills, wheezing and occasional shortness of breath. She was seen in fast track and then upgraded to the main ED. When I came to evaluate her she says she feels much better and just wants to go home. She states the medications she received in fast track worked and now she would like to leave. She denies having had fevers, dysuria, frequency, urgency, diarrhea, constipation, abdominal pain, back pain, headache, neck pain PCP: Holger Wetzel PSH: None Allergies: NKA, NKDA Social Hx: Denies smoking, drinking, or illicit drug usage. Past History - Past Medical History Allergies/Adverse Reactions: Allergies Allergy/AdvReac Type Severity Reaction Status Date / Time No Known Allergies Allergy Verified 02/16/18 15:31 Home Medications: Ambulatory Orders Metoprolol Succinate [Toprol XL -] 50 mg PO BID 09/05/17 Losartan/Hydrochlorothiazide [Losartan-Hctz 100-25 mg Tab] 1 each PO DAILY #14 tablet 10/08/17 Albuterol Sulfate Inhaler - [Ventolin HFA Inhaler -] 2 inh PO Q4H #1 inh Azithromycin [Zithromax 250mg Tablets -] 250 mg PO UTDICT #6 tab 04/01/18 Anemia: No Asthma: No Cardiac Disorders: No COPD: No GI Disorders: Yes (GERD) HTN: Yes - Surgical History Abdominal Surgery: Yes - Suicide/Smoking/Psychosocial Hx Smoking Status: No Smoking History: Unknown if ever smoked Have you smoked in the past 12 months: No Number of Cigarettes Smoked Daily: 0 Hx Alcohol Use: No Drug/Substance Use Hx: No Substance Use Type: None Hx Substance Use Treatment: No Respiratory Specific PMHX - Complaint Specific PMHX Angina: No Bronchitis: Yes Pneumonia: No Pulmonary Embolus: No TB (Tuberculosis): No Review of Systems - Review of Systems Able to Perform ROS?: Yes Constitutional: Yes: Chills, Malaise, Weakness HEENTM: Yes: Nose Congestion. No: Blurred Vision, Throat Pain, Mouth Pain Respiratory: Yes: Cough, Shortness of Breath, Wheezing. No: Productive cough Cardiac (ROS): No: Chest Pain, Edema, Irregular Heart Rate, Lightheadedness, Palpitations ABD/GI: No: Symptoms Reported, See HPI, Abdominal Distended, Abd. Pain w/ defecation, Blood Streaked Bowels, Constipated, Diarrhea, Difficulty Swallowing , Nausea, Poor Appetite, Poor Fluid Intake, Rectal Bleeding, Vomiting, Indigestion, Abdominal cramping, Tarry Stools, Other : No: Symptoms Reported, See HPI, Burning, Dysuria, Discharge, Frequency, Flank Pain, Hematuria, Incontinence, Pain, Urgency, Testicular Mass, Testicular Swelling, Lesions, Testicular Pain, Other Musculoskeletal: No: Symptoms Reported, See HPI, Back Pain, Gout, Joint Pain, Joint Swelling, Muscle Pain, Muscle Weakness, Neck Pain, Joint Stiffness, Other Integumentary: No: Symptoms Reported, See HPI, Bruising, Change in Color, Change in Hair/Nails, Dryness, Erythema, Flushing, Lesions, Lumps, Pallor, Pruritus, Rash, Sweating, Other Neurological: No: Symptoms reported, See HPI, Headache, Numbness, Paresthesia, Pre-Existing Deficit, Seizure, Tingling, Tremors, Weakness, Unsteady Gait, Ataxia, Dizziness, Other Psychiatric: No: Anxiety, Depression, Frequent Crying, Stressors, Sleep Pattern Change, Emotional Problems, Mood Swings, Change in Appetite, Other Endocrine: No: Symptoms Reported, See HPI, Excessive Sweating, Flushing, Intolerance to Cold, Intolerance to Heat, Increased Hunger, Increased Thirst, Increased Urine, Unexplained Weight Gain, Unexplained Weight Loss, Change in Weight, Other Hematologic/Lymphatic: No: Symptoms Reported, See HPI, Anemia, Blood Clots, Easy Bleeding, Easy Bruising, Bleeding Diathesis, Lymph Node Abnormalities, Swollen Glands, Other *Physical Exam - Vital Signs Last Vital Signs Temp Pulse Resp BP Pulse Ox 97.7 F 84 20 179/99 H 97 04/01/18 17:07 04/01/18 17:07 04/01/18 17:07 04/01/18 17:07 04/01/18 17:07 - Physical Exam General Appearance: Yes: Nourished, Appropriately Dressed. No: Apparent Distress HEENT: positive: EOMI, NAVDEEP, Normal ENT Inspection Neck: positive: Trachea midline, Supple. negative: Lymphadenopathy (R), Lymphadenopathy (L) Respiratory/Chest: positive: Wheezing. negative: Lungs Clear, Normal Breath Sounds Cardiovascular: positive: Regular Rhythm, Regular Rate, S1, S2. negative: Edema Vascular Pulses: Dorsalis-Pedis (R): 2+, Doralis-Pedis (L): 2+ Rectal Exam: positive: deferred Lymphatic: negative: Adenopathy Musculoskeletal: positive: Normal Inspection. 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 NML intact, Fully Oriented, Alert, Normal Mood/ Affect, Normal Response Moderate Sedation - Procedure Monitoring Vital Signs: Procedure Monitoring Vital Signs Temperature 97.7 F 04/01/18 17:07 Pulse Rate 84 04/01/18 17:07 Respiratory Rate 20 04/01/18 17:07 Blood Pressure 179/99 H 04/01/18 17:07 O2 Sat by Pulse Oximetry (%) 97 04/01/18 17:07 ED Treatment Course - LABORATORY CBC & Chemistry Diagram: 04/01/18 17:45 04/01/18 17:45 - ADDITIONAL ORDERS Additional order review: Laboratory Results 04/01/18 17:45 Sodium 139 Potassium 3.9 Chloride 104 Carbon Dioxide 27 Anion Gap 7 L BUN 13 Creatinine 1.2 Creat Clearance w eGFR 43.45 Random Glucose 208 H Calcium 8.2 L Total Bilirubin 0.2 AST 48 H ALT 50 Alkaline Phosphatase 113 Troponin I < 0.02 Total Protein 7.3 Albumin 3.2 L 04/01/18 17:45 RBC 4.06 MCV 89.3 MCHC 34.9 RDW 14.1 MPV 7.8 Neutrophils % 53.7 Lymphocytes % 23.9 D Monocytes % 13.3 H Eosinophils % 8.1 H Basophils % 1.0 Medical Decision Making - Medical Decision Making 77 yo F w a PMH of GERD, poorly controlled HTN and arthritis presents with one week of cold symptoms including a dry cough, congestion, chills, wheezing and occasional shortness of breath. - Diffuse rhonchi/wheezing on exam DDx IBNLT: Asthma, COPD, URI, influenza, PNA, allergic reaction Plan: Labs, CXR, EKG, duoneb, steroids, re-assess. Labs unremarkable. This can be a walking pneumonia as well as reactive airway disease. Patient is well appearing and will DC patient on azithromycin, steroids, albuterol, and pulmonary FU. *DC/Admit/Observation/Transfer Diagnosis at time of Disposition: Cough, Reactive airway disease, Flu-like symptoms, Bronchitis, Walking pneumonia - Discharge Dispostion Disposition: HOME Condition at time of disposition: Improved Decision to Admit order: No - Prescriptions Prescriptions: Albuterol Sulfate Inhaler - [Ventolin HFA Inhaler -] 2 inh PO Q4H #1 inh Azithromycin [Zithromax 250mg Tablets -] 250 mg PO UTDICT #6 tab - Referrals Referrals: Holger Wetzel MD [Primary Care Provider] - Slava Zamudio MD, MD [Staff Physician] - - Patient Instructions Printed Discharge Instructions: How to Avoid a Cold or Flu, DI for Viral Upper Respiratory Infection -- Adult, Reactive Airway Disease-Adult Additional Instructions: You came into the ER with shortness of breath and difficulty breathing. We believe you have some infection which is triggering your reactive airway disease - please see attached handout for further explanation. We are sending an Antibiotic for you to seed cone picker from your pharmacy and take for the next 5 days. Please also seed cone picker the albuterol inhaler we are sending to your pharmacy to take when you become short of breath. We are attaching the number for a sander machine for you to call and schedule an appointment with: Dr. Slava ZAMUDIO Please come back to the ER immediately if your symptoms worsen, your experience more shortness of breath, chest pain, or any other new or worsening concerns. Thank you for coming to the [facility] ER. We hope you feel better soon! Print Language: FAROESE - Post Discharge Activity
[2018-04-01] MEDS: ALBUTEROL SO4 2.5/IPRATROPIUM 0.5 INH SOL 3 ML VIAL.NEB. NEB SCH ×2 (19:58→20:47)
[2018-04-01 21:27] VITALS: BP 167/78; PULSE 88; TEMP 98.8
--- NOTE | 2018-04-02 12:15 | EKG ---
Test Reason : Blood Pressure : / mmHG Vent. Rate : 079 BPM Atrial Rate : 079 BPM P-R Int : 166 ms QRS Dur : 070 ms QT Int : 374 ms P-R-T Axes : 076 031 069 degrees QTc Int : 428 ms POOR DATA QUALITY, INTERPRETATION MAY BE ADVERSELY AFFECTED NORMAL SINUS RHYTHM WITH SINUS ARRHYTHMIA ANTEROSEPTAL INFARCT (CITED ON OR BEFORE 08-OCT-2017) ABNORMAL ECG WHEN COMPARED WITH ECG OF 21-JAN-2018 10:05, NO SIGNIFICANT CHANGE WAS FOUND Confirmed by WILFIRDO BRISCOE MD ([id number]) on 04/02/2018 12:14:34 PM Referred By: ANTWAN Confirmed By:WILFRIDO BRISCOE MD
== END 2018-04-01 21:28 | disposition home or self-care (01) ==
LOC: JERFT 17:05 → JER 17:05
PROC: 3E0F7GC Introduction of Other Therapeutic Substance into Respiratory Tract, Via Natural or Artificial Opening (ICD-10-PCS; principal; 2018-04-01)
PROC: 3E0F7GC Introduction of Other Therapeutic Substance into Respiratory Tract, Via Natural or Artificial Opening (ICD-10-PCS; 2018-04-01)
DX: J18.9 Pneumonia, unspecified organism (principal); J11.1 Influenza due to unidentified influenza virus with other respiratory manifestations; I10 Essential (primary) hypertension; K21.9 Gastro-esophageal reflux disease without esophagitis
CPT/HCPCS: 36415; 71046-TC-FY; 80053; 84484; 85025; 93005; 93010; 99282-25

== ENCOUNTER 2019-03-24 11:59 | Emergency (ER) | payer BC, OTHER ==
[2019-03-24 12:08] VITALS: BMI 32.5
--- NOTE | 2019-03-24 13:20 | PDOC ---
History of Present Illness <Vinod Roca - Last Filed: 03/24/19 16:10> - General History Source: Patient Exam Limitations: No Limitations - History of Present Illness Initial Comments: 03/24/19 13:15 PCP: Holger Wetzel HPI: 78yo F with PMH GERD, HTN, arthritis (ambulates with a walker at baseline) , presenting with 2 weeks of worsening LEFT foot pain. Patient reports pain is worse while ambulating and relieved when she is off her feet / laying or sitting. Pt was seen by her PCP and given medication (she does not recall what she was prescribed) and a diagnosis of worsening of her arthritis. Since this time her pain has continued and today she decided to present to the ED for evaluation and pain control. Has been taking Tylenol which provides only limited relief - most recently taken at 7AM today. She denies chest pain, SOB, fevers, dysuria, frequency, urgency, diarrhea, constipation, abdominal pain, back pain, headache, neck pain. No recent flights, never-smoker, no estrogen compounds, no recent hospitalizations, no leg swelling or pain above the ankle. ALL: NKDA MEDS: Per chart PMH: As above PSH: Denies SHx: Denies smoking / drinking / illicits <Nino Ríos - Last Filed: 03/24/19 16:34> - General Chief Complaint: Pain Stated Complaint: LEG PAIN Time Seen by Provider: 03/24/19 13:14 Past History <Vinod Roca - Last Filed: 03/24/19 16:10> - Travel Traveled outside of the country in the last 30 days: No Close contact w/someone who was outside of country & ill: No - Past Medical History Anemia: No Asthma: No Cardiac Disorders: No COPD: No GI Disorders: Yes (GERD) HTN: Yes - Surgical History Abdominal Surgery: Yes - Immunization History Immunization Up to Date: Yes - Psycho Social/Smoking Cessation Hx Smoking Status: No Smoking History: Never smoked Have you smoked in the past 12 months: No Number of Cigarettes Smoked Daily: 0 Information on smoking cessation initiated: No Hx Alcohol Use: No Drug/Substance Use Hx: No Substance Use Type: None Hx Substance Use Treatment: No <Nino Ríos - Last Filed: 03/24/19 16:34> - Past Medical History Allergies/Adverse Reactions: Allergies Allergy/AdvReac Type Severity Reaction Status Date / Time No Known Allergies Allergy Verified 03/24/19 12:09 Home Medications: Ambulatory Orders Metoprolol Succinate [Toprol XL -] 50 mg PO BID 09/05/17 Losartan/Hydrochlorothiazide [Losartan-Hctz 100-25 mg Tab] 1 each PO DAILY #14 tablet 10/08/17 Albuterol Sulfate Inhaler - [Ventolin HFA Inhaler -] 2 inh PO Q4H #1 inh Review of Systems - Review of Systems Able to Perform ROS?: Yes Is the patient limited Liberian proficient: Yes Constitutional: No: Chills, Diaphoresis, Fever, Weakness HEENTM: No: Recent change in vision, Nose Congestion, Throat Pain, Mouth Pain Respiratory: No: Cough, Orthopnea, Shortness of Breath, Wheezing Cardiac (ROS): No: Chest Pain, Edema, Irregular Heart Rate, Palpitations, Syncope, Chest Tightness ABD/GI: No: Constipated, Diarrhea, Nausea, Vomiting : No: Burning, Dysuria, Discharge, Frequency, Urgency Musculoskeletal: Yes: See HPI, Joint Pain, Muscle Pain, Muscle Weakness Integumentary: No: Bruising, Pallor, Pruritus, Rash Neurological: No: Headache, Numbness, Tingling, Weakness Psychiatric: No: Anxiety, Depression, Emotional Problems Endocrine: No: Increased Thirst, Increased Urine, Change in Weight Hematologic/Lymphatic: No: Anemia, Blood Clots, Easy Bleeding All Other Systems: Reviewed and Negative <Nino Ríos - Last Filed: 03/24/19 16:34> *Physical Exam - Vital Signs Last Vital Signs Temp Pulse Resp BP Pulse Ox 98.0 F 63 20 188/95 H 100 03/24/19 15:18 03/24/19 15:18 03/24/19 15:18 03/24/19 15:18 03/24/19 12:05 <Vinod Roca - Last Filed: 03/24/19 16:10> - Vital Signs Last Vital Signs Temp Pulse Resp BP Pulse Ox 98.2 F 82 16 105/82 100 03/24/19 12:05 03/24/19 12:05 03/24/19 12:05 03/24/19 12:31 03/24/19 12:05 - Physical Exam 03/24/19 14:29 AFVSS NCAT, EOMI, MMM, normal morphologies RRR, nl s1s2, no murmurs appreciated CTABL, nl WOB, no wheezes / rales / rhonchi Soft, non-tender, non-distended 2+ radial and DP pulses WWP, no clubbing / cyanosis / edema CN grossly intact, gait not assessed, normal sensation and motor in b/l LE <Nino Ríos - Last Filed: 03/24/19 16:34> ED Treatment Course - LABORATORY CBC & Chemistry Diagram: 03/24/19 14:02 03/24/19 15:27 - ADDITIONAL ORDERS Additional order review: Laboratory Results 03/24/19 03/24/19 15:27 14:02 Sodium 140 Cancelled Potassium 3.9 Cancelled Chloride 103 Cancelled Carbon Dioxide 31 Cancelled Anion Gap 5 L Cancelled BUN 14.1 Cancelled Creatinine 0.8 Cancelled Est GFR (CKD-EPI)AfAm 81.27 Cancelled Est GFR (CKD-EPI)NonAf 70.12 Cancelled Random Glucose 175 H Cancelled Calcium 9.1 Cancelled Total Bilirubin 0.5 Cancelled AST 55 H Cancelled ALT 72 H Cancelled Alkaline Phosphatase 138 H Cancelled Creatine Kinase 155 Troponin I < 0.02 Total Protein 7.4 Cancelled Albumin 3.5 Cancelled 03/24/19 14:02 RBC 4.47 MCV 89.2 MCHC 33.8 RDW 16.6 H MPV 9.1 D Neutrophils % 73.8 D Lymphocytes % 16.0 D Monocytes % 7.4 Eosinophils % 2.1 Basophils % 0.7 - Medications Given in the ED: ED Medications Discontinued Medications Generic Name Dose Route Start Last Admin Trade Name Veronika PRN Reason Stop Dose Admin Acetaminophen 1,000 mg 03/24/19 13:38 03/24/19 14:05 Ofirmev Injection - IVPB 03/24/19 13:39 1,000 mg ONCE ONE Administration Metoprolol Tartrate 25 mg 03/24/19 15:13 03/24/19 15:21 Lopressor - PO 03/24/19 15:14 25 mg ONCE ONE Administration <Vinod Roca - Last Filed: 03/24/19 16:10> - LABORATORY CBC & Chemistry Diagram: 03/24/19 14:02 03/24/19 15:27 <Nino Ríos - Last Filed: 03/24/19 16:34> Medical Decision Making - Medical Decision Making 03/24/19 13:45 78yo F with PMH GERD, HTN, arthritis (ambulates with a walker at baseline), presenting with 2 weeks of worsening LEFT foot pain. History notable for subacute course, second presentation for same complaint without relief. Exam notable for stable vitals, absence of tenderness on palpation / ranging of joints in the affected foot, strong DP pulses bilaterally without tenderness or swelling in either LE. DDX: Progressing arthritis vs stress fracture / osteopenia? Thromboemboloism unlikely given history and exam. - Left foot and ankle plain-films - CBC, CMP - IV Tylenol 1g (took PO at 7AM last) - Reassess pain after medication 03/24/19 15:12 - 180/95, SBP 200+ intermittently during subsequent evaluations - Metoprolol 25mg PO - EKG: NSR, normal axis, normal intervals, no concerning morphologies, no acute ischemic changes - Labs within normal limits, CMP reordered after initial hemolyzed - Troponin negative 03/24/19 16:32 - Patient feeling better, BP improved, stable for discharge Dispo: Home <Nino Ríos - Last Filed: 03/24/19 16:34> Discharge <Vinod Roca - Last Filed: 03/24/19 16:10> - Discharge Information Problems reviewed: Yes - Admission No <Nino Ríos - Last Filed: 03/24/19 16:34> - Discharge Information Clinical Impression/Diagnosis: Arthritis Condition: Improved Disposition: HOME - Follow up/Referral Referrals: Holger Wetzel MD [Primary Care Provider] - - Patient Discharge Instructions Additional Instructions: You were seen and evaluated in the [facility] ED for left leg pain. Your Xray films were negative for fracture and you responded well to pain medication. You also need to have your blood pressure re-checked by your primary doctor, as it was very elevated today. Uncontrolled blood pressure can eventually lead to kidney disease, heart disease, other serious illness, disability, or even . Return to the ED for any new or worsening symptoms including but not limited to : new fevers / chills, worsening pain that doesn't respond to medications, inability to walk. Thank you for coming in. - Post Discharge Activity
[2019-03-24] MEDS ORDERED: ACETAMINOPHEN 1000 MG/100 ML VIAL (NON FORMULARY) IVPB ONE (13:38)
[2019-03-24] MEDS ORDERED: ACETAMINOPHEN INJECTION 100 ML IVPB ONE (13:48)
--- NOTE | 2019-03-24 14:23 | PDOC ---
Documentation entered by Apoorva Acharya SCRIBE, acting as scribe for Vinod Roca MD. Vinod Roca MD: This documentation has been prepared by the Patrizia mensah Brenda, SCRIBE, under my direction and personally reviewed by me in its entirety. I confirm that the documentation accurately reflects all work, treatment, procedures, and medical decision making performed by me. Attending Attestation - Resident Resident Name: MichoacanoNino - ED Attending Attestation I have performed the following: I have examined & evaluated the patient, The case was reviewed & discussed with the resident, I agree w/resident's findings & plan, Exceptions are as noted - HPI HPI: 03/24/19 14:23 78 F with h/o GERD, HTN, arthritis, presenting to ED with L foot pain. Pt reports 2 weeks of progressively worsening pain in her L foot and lower leg that is worse with walking. Pt states that the pain comes and goes. Denies any trauma/falls. Denies any swelling or redness. Pt currently denies any pain. Does not know what brings about the pain. Pt noted to be extremely hypertensive in ED. Pt reports compliance with her BP meds. Denies CP/SOB. Denies FUENTES/N/V. Pt denies any complaints at this time. - Physicial Exam PE: 03/24/19 14:35 "GENERAL: Awake, alert, and fully oriented, in no acute distress. HEAD: No signs of trauma EYES: PERRLA, EOMI, sclera anicteric, conjunctiva clear ENT: Auricles normal inspection, hearing grossly normal, nares patent, oropharynx clear without exudates. Moist mucosa NECK: Nontender, no stepoffs, Normal ROM, supple, no lymphadenopathy, JVD, or masses LUNGS: Breath sounds equal, clear to auscultation bilaterally. No wheezes, and no crackles HEART: Regular rate and rhythm, normal S1 and S2, no murmurs, rubs or gallops ABDOMEN: Soft, nontender, normoactive bowel sounds. No guarding, no rebound. No masses EXTREMITIES: Normal range of motion, no edema. No clubbing or cyanosis. No cords, erythema, or tenderness NEUROLOGICAL: Cranial nerves II through XII intact. 5/5 strength and sensation in all extremities, Normal speech, normal gait, normal cerebellar function SKIN: Warm, Dry, normal turgor, no rashes or lesions noted. - Medical Decision Making 03/24/19 14:35 78 F with atraumatic L foot pain. Pt with strong pulses in both feet. Low suspicion for claudication or arterial embolus. Suspect arthritis. No evidence of DVT. Pt also found to be extremely hypertensive. Asymptomatic at this time. - XR - Labs - Metoprolol 25mg PO 03/24/19 16:46 XR negative Labs wnl BP improved Pt reports no pain at this time. Pt is well appearing, with normal vitals. Clinically stable for DC at this time. I discussed the physical exam findings, ancillary test results and final diagnoses with the patient. I answered all of the patient's questions. The patient was satisfied with the care received and felt comfortable with the discharge plan and treatment plan. The patient agrees to follow up with the primary care physician within 24-72 hours.
[2019-03-24 14:27] LABS: BASO % 0.7 % (0-2.0); EOS % 2.1 % (0-4.5); HEMATOCRIT 39.8 % (32.4-45.2); HEMOGLOBIN 13.5 GM/dL (10.7-15.3); MCH 30.2 pg (25.7-33.7); MCHC 33.8 g/dl (32.0-36.0); MEAN CELL VOLUME 89.2 fl (80-96); MEAN PLT VOLUME 9.1 fl (7.5-11.1); MONO % 7.4 % (3.8-10.2); NEUT % 73.8 % (42.8-82.8); PLATELET COUNT 310 K/MM3 (134-434); RBC 4.47 M/mm3 (3.60-5.2); RDW 16.6 % (11.6-15.6); WHITE BLOOD COUNT 9.9 K/mm3 (4.0-10.0)
[2019-03-24 15:09] VITALS: BP 188/95
[2019-03-24] MEDS ORDERED: METOPROLOL TARTRATE 25 MG TABLET (FP) PO ONE (15:13)
[2019-03-24] MEDS ORDERED: METOPROLOL TARTRATE 25 MG TABLET (FP) ONE (15:15)
--- NOTE | 2019-03-24 15:15 | EKG ---
Test Reason : Blood Pressure : / mmHG Vent. 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
[2019-03-24 15:19] VITALS: PULSE 63; TEMP 98
[2019-03-24 16:09] LABS: ALBUMIN 3.5 g/dl (3.4-5.0); ALK PHOS 138 U/L (45-117); ANION GAP 5 MMOL/L (8-16); BILIRUBIN,TOTAL 0.5 mg/dL (0.2-1); BLOOD UREA NITROGEN 14.1 mg/dL (7-18); CALCIUM 9.1 mg/dL (8.5-10.1); CHLORIDE 103 mmol/L (98-107); CO2 31 mmol/L (21-32); CREATININE 0.8 mg/dL (0.55-1.3); GLUCOSE,RANDOM 175 mg/dL (74-106); POTASSIUM 3.9 mmol/L (3.5-5.1); SGOT/AST 55 U/L (15-37); SGPT/ALT 72 U/L (13-61); SODIUM 140 mmol/L (136-145); TOT PROT 7.4 g/dl (6.4-8.2)
== END 2019-03-24 16:43 | disposition home or self-care (01) ==
LOC: JER 11:59
PROC: 3E033NZ Introduction of Analgesics, Hypnotics, Sedatives into Peripheral Vein, Percutaneous Approach (ICD-10-PCS; principal; 2019-03-24)
DX: M13.872 Other specified arthritis, left ankle and foot (principal); I10 Essential (primary) hypertension; K21.9 Gastro-esophageal reflux disease without esophagitis; Z99.89 Dependence on other enabling machines and devices
CPT/HCPCS: 36415; 73610-TC-LT-FY; 73630-TC-LT; 80053; 82550; 82553; 84484; 85025; 93005; 93010; 99284-25; J0131

== ENCOUNTER 2019-10-23 09:41 | Emergency (ER) | payer BC, OTHER ==
[2019-10-23 09:49] VITALS: BMI 32.1
--- NOTE | 2019-10-23 10:41 | PDOC ---
History of Present Illness - General Chief Complaint: Pain Stated Complaint: DIARRHEA, ABD PAIN Time Seen by Provider: 10/23/19 10:17 - History of Present Illness Initial Comments: Veronica Valle is a 79 y/o female with PMH significant for HTN presenting today with 1 week of diarrhea non bloody. Reports that she was seen by her PCP Dr. Wetzel a few days ago and told her work up was negative. No fever/chills. Reports mild diffuse abdominal pain earlier in the week that has since resolved. No chest pain/shortness of breath. No back pain. No dysuria. No leg swelling. No headache. No recent travel. No new foods. No dizziness. No vision changes. Takes metoprolol 50 mg BID and took her medications today. SocHx: lives at [facility], no AC at home Last colonoscopy 3 years ago. Past History - Medical History Allergies/Adverse Reactions: Allergies Allergy/AdvReac Type Severity Reaction Status Date / Time No Known Allergies Allergy Verified 10/23/19 09:44 Home Medications: Ambulatory Orders Metoprolol Succinate [Toprol XL -] 50 mg PO BID 09/05/17 Sulfamethoxazole/Trimethoprim [Bactrim Ds -] 1 tab PO BID 10 Days #20 tablet 10/23/19 metroNIDAZOLE [Flagyl -] 500 mg PO TID 10 Days #30 tablet 10/23/19 Anemia: No Asthma: No Cardiac Disorders: No COPD: No GI Disorders: Yes (GERD) HTN: Yes - Surgical History Abdominal Surgery: Yes - Immunization History Immunization Up to Date: Yes - Psycho-Social/Smoking History Smoking Status: No Smoking History: Never smoked Have you smoked in the past 12 months: No Number of Cigarettes Smoked Daily: 0 - Substance Abuse Hx (Audit-C & DAST Scrn) How often the patient has a drink containing alcohol: Never Score: In Men: 4 or > Positive; In Women: 3 or > Positive: 0 Screen Result (Pos requires Nsg. Audit-10AR): Negative In the last yr the pt used illegal drug/Rx for NonMed reason: No Score: Yes response is considered Positive: 0 Screen Result (Positive result requires Nsg. DAST-10): Negative Abd/GI Specific PMHX - Complaint Specific PMHX GERD: No GI Ulcer Disease: No Review of Systems - Review of Systems Comments:: GENERAL/CONSTITUTIONAL: No fever or chills. No weakness._ HEAD, EYES, EARS, NOSE AND THROAT: No change in vision. No change in hearing. No sore throat._ CARDIOVASCULAR: No chest pain or shortness of breath_ RESPIRATORY: Denies cough, hemoptysis_ GASTROINTESTINAL: Reports diarrhea. No nausea, vomiting or constipation._ GENITOURINARY: No dysuria, frequency, or change in urination._ MUSCULOSKELETAL: No joint or muscle swelling or pain. No neck or back pain._ SKIN: No rash_ NEUROLOGIC: No headache, vertigo, loss of consciousness, or change in strength/sensation._ ENDOCRINE: No increased thirst. No abnormal weight change_ HEMATOLOGIC/LYMPHATIC: No anemia, easy bleeding, or history of blood clots._ ALLERGIC/IMMUNOLOGIC: No hives or skin allergy._ *Physical Exam - Vital Signs Last Vital Signs Temp Pulse Resp BP Pulse Ox 98.3 F 64 18 210/90 H 97 10/23/19 09:42 10/23/19 09:42 10/23/19 09:42 10/23/19 09:42 10/23/19 09:42 - Physical Exam GENERAL: Awake, alert, and oriented to person/place/time, in no acute distress_ HEAD: No signs of trauma, normocephalic, atraumatic _ EYES: PERRLA, EOMI, sclera anicteric, conjunctiva clear_ ENT: Hearing grossly normal, nares patent, oropharynx clear without exudates. No uvular deviation. Moist mucosa_ NECK: Normal ROM, supple, no lymphadenopathy, JVD, or masses_ LUNGS: No distress, speaks in full sentences, clear to auscultation bilaterally _ HEART: Regular rate and rhythm, normal S1 and S2, no murmurs appreciated, peripheral pulses normal and equal bilaterally._ ABDOMEN: Soft, obese, nontender, normoactive bowel sounds. No guarding, no rebound. No masses_ BACK: No CVA TTP bilaterally. No flank TTP bilaterally. EXTREMITIES: Normal inspection, Normal range of motion, no edema. No clubbing or cyanosis_ NEUROLOGICAL: Cranial nerves II through XII grossly intact. Normal speech, normal gait, no focal sensorimotor deficits _ SKIN: Warm, Dry, normal turgor, no rashes or lesions noted_ ED Treatment Course - LABORATORY CBC & Chemistry Diagram: 10/23/19 11:30 10/23/19 11:30 Medical Decision Making - Medical Decision Making 10/23/19 10:43 79F hx of HTN presenting today with 1 week of diarrhea. Seen by PCP a few days ago. No change in symptoms. Feels heat exhaustion given no AC at home. -labs -trop -cxr -ekg -ct abd with IV contrast 10/23/19 12:53 Labs reviewed. Laboratory Last Values WBC 10.6 K/mm3 (4.0-10.0) H 10/23/19 11:30 RBC 4.47 M/mm3 (3.60-5.2) 10/23/19 11:30 Hgb 13.9 GM/dL (10.7-15.3) 10/23/19 11:30 Hct 41.4 % (32.4-45.2) 10/23/19 11:30 MCV 92.8 fl (80-96) 10/23/19 11:30 MCH 31.0 pg (25.7-33.7) 10/23/19 11:30 MCHC 33.4 g/dl (32.0-36.0) 10/23/19 11:30 RDW 15.3 % (11.6-15.6) 10/23/19 11:30 Plt Count 342 K/MM3 (134-434) D 10/23/19 11:30 MPV 8.2 fl (7.5-11.1) 10/23/19 11:30 Absolute Neuts (auto) 8.2 K/mm3 (1.5-8.0) H 10/23/19 11:30 Neutrophils % 77.6 % (42.8-82.8) 10/23/19 11:30 Lymphocytes % 12.7 % (8-40) D 10/23/19 11:30 Monocytes % 7.5 % (3.8-10.2) 10/23/19 11:30 Eosinophils % 1.3 % (0-4.5) 10/23/19 11:30 Basophils % 0.9 % (0-2.0) 10/23/19 11:30 Nucleated RBC % 0 % (0-0) 10/23/19 11:30 PT with INR 11.60 SEC (9.7-13.0) 10/23/19 11:30 INR 0.98 (0.83-1.09) 10/23/19 11:30 PTT (Actin FS) 32.5 SECONDS (25.2-36.5) 10/23/19 11:30 Sodium 140 mmol/L (136-145) 10/23/19 11:30 Potassium 4.8 mmol/L (3.5-5.1) 10/23/19 11:30 Chloride 103 mmol/L (98-107) 10/23/19 11:30 Carbon Dioxide 29 mmol/L (21-32) 10/23/19 11:30 Anion Gap 8 MMOL/L (8-16) 10/23/19 11:30 BUN 15.3 mg/dL (7-18) 10/23/19 11:30 Creatinine 0.8 mg/dL (0.55-1.3) 10/23/19 11:30 Est GFR (CKD-EPI)AfAm 80.70 10/23/19 11:30 Est GFR (CKD-EPI)NonAf 69.63 10/23/19 11:30 Random Glucose 174 mg/dL (74-106) H 10/23/19 11:30 Lactic Acid 1.5 mmol/L (0.4-2.0) 10/23/19 11:30 Calcium 9.5 mg/dL (8.5-10.1) 10/23/19 11:30 Total Bilirubin 0.4 mg/dL (0.2-1) 10/23/19 11:30 AST 43 U/L (15-37) H 10/23/19 11:30 ALT 46 U/L (13-61) 10/23/19 11:30 Alkaline Phosphatase 123 U/L (45-117) H 10/23/19 11:30 Creatine Kinase 195 U/L (26-192) H 10/23/19 11:30 Troponin I < 0.02 ng/ml (0.00-0.05) 10/23/19 11:30 Total Protein 7.7 g/dl (6.4-8.2) 10/23/19 11:30 Albumin 3.3 g/dl (3.4-5.0) L 10/23/19 11:30 Lipase 58 U/L (73-393) L 10/23/19 11:30 Urine Color Yellow 10/23/19 12:28 Urine Appearance Clear 10/23/19 12:28 Urine pH 5.5 (5.0-8.0) D 10/23/19 12:28 Ur Specific [place] 1.005 (1.010-1.035) L 10/23/19 12:28 Urine Protein Negative (NEGATIVE) 10/23/19 12:28 Urine Glucose (UA) Negative (NEGATIVE) 10/23/19 12:28 Urine Ketones Negative (NEGATIVE) 10/23/19 12:28 Urine Blood Negative (NEGATIVE) 10/23/19 12:28 Urine Nitrite Negative (NEGATIVE) 10/23/19 12:28 Urine Bilirubin Negative (NEGATIVE) 10/23/19 12:28 Urine Urobilinogen 0.2 mg/dL (0.2-1.0) 10/23/19 12:28 Ur Leukocyte Esterase Negative (NEGATIVE) 10/23/19 12:28 10/23/19 12:54 EKG shows 61 bpm, NSR, no ST elevation, no axis deviation, QTc 408. 10/23/19 15:26 CT abd shows acute diverticulitis of the left colon. No drainable abscess collection. Hiatal hernia unchanged compared to 2011. Cholelithiasis. Will start on bactrim BID and flagyl TID for 7-10 days, GI and PCP f/u. All questions answe red. Return precautions given. Pt verbalized understanding and agreement with plan. Discharge - Discharge Information Problems reviewed: Yes Clinical Impression/Diagnosis: Diverticulitis Condition: Stable Disposition: HOME - Admission No - Additional Discharge Information Prescriptions: Sulfamethoxazole/Trimethoprim [Bactrim Ds -] 1 tab PO BID 10 Days #20 tablet metroNIDAZOLE [Flagyl -] 500 mg PO TID 10 Days #30 tablet - Follow up/Referral Referrals: Noemy Tran MD [Staff Physician] - Holger Wetzel MD [Primary Care Provider] - - Patient Discharge Instructions Patient Printed Discharge Instructions: DI for Diverticulitis Additional Instructions: Please take antibiotics: metronidazole 500 mg three times a day and Bactrim 1 tab two times a day for 10 days. Please make a follow up appointment with your primary care doctor and with a GI doctor (referrals provided here). Your blood pressure was high while you were here. Adjustments may need to be made to your medications. If you experience any new, worsening, or concerning symptoms, including worsening abdominal pain, blood in the stool, fever, chills, nausea/vomiting, or any other concerns, please return to the emergency department. - Post Discharge Activity
--- NOTE | 2019-10-23 11:52 | PDOC ---
Documentation entered by Apoorva Acharya SCRIBE, acting as scribe for Latoya El MD. Latoya El MD: This documentation has been prepared by the Patrizia mensah Brenda, SCRIBE, under my direction and personally reviewed by me in its entirety. I confirm that the documentation accurately reflects all work, treatment, procedures, and medical decision making performed by me. Attending Attestation - Resident Resident Name: Clement Espitia - ED Attending Attestation I have performed the following: I have examined & evaluated the patient, The case was reviewed & discussed with the resident, I agree w/resident's findings & plan, Exceptions are as noted - HPI HPI: 10/23/19 10:51 The patient is an 79 year old female with a significant PMH of HTN who presents to the ED from [facility] for 1 week of NB diarrhea. Patient does endorse previous abdominal pain in the suprapubic region and lower quadrants (patient points), however she denies any currently and notes some nausea, no vomiting. The patient denies chest pain, shortness of breath, headache and dizziness. Denies recent travel. Denies fever, chills, vomiting, and constipation. Denies dysuria, frequency, urgency and hematuria. Allergies: NKA Social history: No reported hx of tobacco use, alcohol use or illicit drug use. PCP: Holger Wetzel - Physicial Exam PE: 10/23/19 11:24 GENERAL: elderly, very pleasant, nontoxic-appearing, A/Ox4, no distress, answers questions appropriately HEENT: PERRLA, EOMI, moist mucous membranes NECK/BACK: no midline ttp, no spinal stepoff or deformity, no hematoma, full ROM, neck supple CARDIOVASCULAR: regular rate/rhythm, no MGR, strong peripheral pulses, capillary refill <2 seconds, extremities wwp, no edema LUNGS/RESPIRATORY: no respiratory distress, CTAB GI/ABDOMEN: protuberant but nonditended and symmetric [id number], normoactive BS, soft, no ttp, no midline pulsatile masses : no CVA tenderness MSK/EXTREMITIES: no muscle atrophy, no acute deformity SKIN: warm and dry, no pallor, no jaundice, no rash, no pathologic-appearing bruising, no skin breakdown, no cuts, no lesions NEUROLOGICAL: GCS 15, CN II-XII grossly intact, 5/5 strength proximally and distally, no facial droop - Medical Decision Making 10/23/19 15:22 79YOF p/w left-sided abdominal 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 Initial Vital Signs Temp Pulse Resp BP Pulse Ox 98.3 F 64 18 210/90 H 97 10/23/19 09:42 10/23/19 09:42 10/23/19 09:42 10/23/19 09:42 10/23/19 09:42 DDX IBNLT: Most likely diverticulitis, UTI, renal colic, colitis, less likely but possible appendicitis, unlikely upper abdominal complaint ddx such as gastritis, PUD, bowel ischemia, constipation, musculoskeletal, malignancy, etc. W/U ordered: Labs as noted below, abdomen/pelvis with IV contrast TX ordered: Losartan 10/23/19 10/23/19 10/23/19 12:28 11:30 11:30 PT with INR INR PTT (Actin FS) Sodium 140 Potassium 4.8 Chloride 103 Carbon Dioxide 29 Anion Gap 8 BUN 15.3 Creatinine 0.8 Est GFR (CKD-EPI)AfAm 80.70 Est GFR (CKD-EPI)NonAf 69.63 Random Glucose 174 H Lactic Acid 1.5 Calcium 9.5 Total Bilirubin 0.4 AST 43 H ALT 46 Alkaline Phosphatase 123 H Creatine Kinase 195 H Creatine Kinase Index 3.0 CK-MB (CK-2) 5.9 H Troponin I < 0.02 Total Protein 7.7 Albumin 3.3 L Lipase 58 L Urine Color Yellow Urine Appearance Clear Urine pH 5.5 D Ur Specific [place] 1.005 L Urine Protein Negative Urine Glucose (UA) Negative Urine Ketones Negative Urine Blood Negative Urine Nitrite Negative Urine Bilirubin Negative Urine Urobilinogen 0.2 Ur Leukocyte Esterase Negative 10/23/19 11:30 PT with INR 11.60 INR 0.98 PTT (Actin FS) 32.5 Sodium Potassium Chloride Carbon Dioxide Anion Gap BUN Creatinine Est GFR (CKD-EPI)AfAm Est GFR (CKD-EPI)NonAf Random Glucose Lactic Acid Calcium Total Bilirubin AST ALT Alkaline Phosphatase Creatine Kinase Creatine Kinase Index CK-MB (CK-2) Troponin I Total Protein Albumin Lipase Urine Color Urine Appearance Urine pH Ur Specific [place] Urine Protein Urine Glucose (UA) Urine Ketones Urine Blood Urine Nitrite Urine Bilirubin Urine Urobilinogen Ur Leukocyte Esterase 10/23/19 11:30 RBC 4.47 MCV 92.8 MCHC 33.4 RDW 15.3 MPV 8.2 Neutrophils % 77.6 Lymphocytes % 12.7 D Monocytes % 7.5 Eosinophils % 1.3 Basophils % 0.9 10/23/19 15:27 The patient has diverticulitis without e/o abscess or perforation, appropriate for outpatient abx. This Pt has gotten significant relief of symptoms while in the ED. On last reassessment, vitals are wnl, pain is reasonably controlled, and exam is benign. Workup is not concerning for emergency-level pathology at this time. This Pt is appropriate for discharge with close outpatient follow up. They are comfortable with this plan and will follow up with PCP in 1-3 days. Specific return precautions are discussed and they will come back to the ER if necessary. Heart Score/ECG Review #1 10/23/19 12:36 Normal sinus rhythm, rate 61, normal axis and intervals, TWF in aVL, anterior Q waves same as prior Discharge - Discharge Information Problems reviewed: Yes Clinical Impression/Diagnosis: Diverticulitis Condition: Stable Disposition: HOME - Admission No - Additional Discharge Information Prescriptions: Sulfamethoxazole/Trimethoprim [Bactrim Ds -] 1 tab PO BID 10 Days #20 tablet metroNIDAZOLE [Flagyl -] 500 mg PO TID 10 Days #30 tablet - Follow up/Referral Referrals: Noemy Tran MD [Staff Physician] - Holger Wetzel MD [Primary Care Provider] - - Patient Discharge Instructions Patient Printed Discharge Instructions: DI for Diverticulitis Additional Instructions: Please take antibiotics: metronidazole 500 mg three times a day and Bactrim 1 tab two times a day for 10 days. Please make a follow up appointment with your primary care doctor and with a GI doctor (referrals provided here). If you experience any new, worsening, or concerning symptoms, including worsening abdominal pain, blood in the stool, fever, chills, nausea/vomiting, or any other concerns, please return to the emergency department. - Post Discharge Activity
[2019-10-23 11:55] LABS: BASO % 0.9 % (0-2.0); EOS % 1.3 % (0-4.5); HEMATOCRIT 41.4 % (32.4-45.2); HEMOGLOBIN 13.9 GM/dL (10.7-15.3); LYMPH % 12.7 % (8-40); MCHC 33.4 g/dl (32.0-36.0); MEAN CELL VOLUME 92.8 fl (80-96); MEAN PLT VOLUME 8.2 fl (7.5-11.1); MONO % 7.5 % (3.8-10.2); NEUT % 77.6 % (42.8-82.8); PLATELET COUNT 342 K/MM3 (134-434); RBC 4.47 M/mm3 (3.60-5.2); RDW 15.3 % (11.6-15.6); WHITE BLOOD COUNT 10.6 K/mm3 (4.0-10.0)
[2019-10-23 12:02] LABS: INR 0.98 (0.83-1.09); PROTHROMBIN TIME (PATIENT) 11.6 SEC (9.7-13.0)
[2019-10-23 12:04] LABS: ACTIVATED PTT 32.5 SECONDS (25.2-36.5)
[2019-10-23] MEDS ORDERED: LOSARTAN POTASSIUM 25 MG TABLET PO ONE ×2 (12:10→16:41)
[2019-10-23 12:29] LABS: ALBUMIN 3.3 g/dl (3.4-5.0); ALK PHOS 123 U/L (45-117); ANION GAP 8 MMOL/L (8-16); BILIRUBIN,TOTAL 0.4 mg/dL (0.2-1); BLOOD UREA NITROGEN 15.3 mg/dL (7-18); CALCIUM 9.5 mg/dL (8.5-10.1); CHLORIDE 103 mmol/L (98-107); CO2 29 mmol/L (21-32); CREATININE 0.8 mg/dL (0.55-1.3); GLUCOSE,RANDOM 174 mg/dL (74-106); LIPASE 58 U/L (73-393); POTASSIUM 4.8 mmol/L (3.5-5.1); SGOT/AST 43 U/L (15-37); SGPT/ALT 46 U/L (13-61); SODIUM 140 mmol/L (136-145); TOT PROT 7.7 g/dl (6.4-8.2)
[2019-10-23 12:42] LABS: PH,URINE 5.5 (5.0-8.0); URINE APPEARANCE CLEAR; URINE BILIRUBIN NEGATIVE (NEGATIVE); URINE COLOR YELLOW; URINE GLUCOSE (UA) NEGATIVE (NEGATIVE); URINE KETONE NEGATIVE (NEGATIVE); URINE LEUK ESTERASE NEGATIVE (NEGATIVE); URINE NITRITE NEGATIVE (NEGATIVE); URINE PROTEIN NEGATIVE (NEGATIVE); URINE UROBILINOGEN 0.2 mg/dL (0.2-1.0)
--- NOTE | 2019-10-23 14:50 | EKG ---
Test Reason : Blood Pressure : / mmHG Vent. 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
[2019-10-23] MEDS ORDERED: SULFAMETHOXAZOLE/TRIMETHOPRIM 800MG/160MG D.S. TABLET PO ONE (15:33)
[2019-10-23] MEDS ORDERED: metroNIDAZOLE 250 MG TABLET PO ONE (15:33)
[2019-10-23] MEDS ORDERED: metroNIDAZOLE 250 MG TABLET ONE (16:17)
[2019-10-23] MEDS ORDERED: SULFAMETHOXAZOLE/TRIMETHOPRIM 800MG/160MG D.S. TABLET ONE (16:17)
[2019-10-23 16:37] VITALS: TEMP 98.6
[2019-10-23] MEDS ORDERED: LOSARTAN POTASSIUM 50 MG TABLET (FP) ONE (16:58)
[2019-10-23 17:54] VITALS: BP 166/85; PULSE 62
== END 2019-10-23 18:16 | disposition home or self-care (01) ==
LOC: JER 09:41
DX: K57.92 Diverticulitis of intestine, part unspecified, without perforation or abscess without bleeding (principal)
CPT/HCPCS: 36415; 71045-TC-FY; 74177-TC; 80053; 81003; 82550; 82553; 83605; 83690; 84484; 85025; 85610; 85730; 87086; 87186; 93005; 93010; 99285-25; Q9967

== ENCOUNTER 2019-10-26 21:13 | Emergency (ER) | payer BC ==
--- NOTE | 2019-10-26 21:45 | PDOC ---
Rapid Medical Evaluation Chief Complaint: Nausea Time Seen by Provider: 10/26/19 21:47 Medical Evaluation: Allergies Allergy/AdvReac Type Severity Reaction Status Date / Time No Known Allergies Allergy Verified 10/23/19 09:44 10/26/19 21:43 79 year old female c/o nausea and slight abdominal pain. patient reports that she has been diagnosed with diverticulitis days ago. reports that abdominal pain has improved now with nausea. denies vomiting, chest pain, dizziness . patient is currently on antibiotics. Last Vital Signs Temp Pulse Resp BP Pulse Ox 98.3 F 61 20 202/92 H 96 10/26/19 21:44 10/26/19 21:44 10/26/19 21:44 10/26/19 21:44 10/26/19 21:44 Pe: patient alert ox3. A; nausea P: EKG ua Discharge Disposition - Diagnosis Diverticulitis, Nausea - Referrals - Patient Instructions - Post Discharge Activity
[2019-10-26 21:50] VITALS: BMI 32.1
--- NOTE | 2019-10-26 21:59 | PDOC ---
Attending Attestation - Resident Resident Name: Ash Merritt - ED Attending Attestation I have performed the following: I have examined & evaluated the patient, The case was reviewed & discussed with the resident, I agree w/resident's findings & plan - HPI HPI: 10/26/19 23:35 see resident hpi - Physicial Exam PE: 10/26/19 23:36 see resident exam - Medical Decision Making 10/26/19 23:36 79-year-old female currently on antibiotics for recent diagnosis of uncomplicated diverticulitis, patient initially came because she states she was not improving but in the midst of her work-up stated she felt better and would like to go home refusing labs and further evaluation She is awake alert ambulatory and oriented x4, there is no criteria to hold the patient against her will at this time Due to advanced age and the time of her discharge it was confirmed that she did have keys to her household and states she is comfortable going home in a taxi She has agreed to return if worse and to follow-up with her regular physician tomorrow, she will continue antibiotics as prescribed Discharge - Discharge Information Problems reviewed: Yes Clinical Impression/Diagnosis: Diverticulitis, Nausea Disposition: AGAINST MEDICAL ADVICE - Follow up/Referral Referrals: Holger Llanes MD [Primary Care Provider] - - Patient Discharge Instructions Patient Printed Discharge Instructions: DI for Diverticulitis Additional Instructions: You left the ER today against medical advice. Please continue taking the antibiotics as prescribed and see your Primary doctor, Doctor llanes within the next 48 hours. Return to the ER anytime for completion of your evaluation. Thank you - Post Discharge Activity
[2019-10-26] MEDS ORDERED: metoPROLOL SUCCINATE 25 MG TAB.SR.24H (FP) PO ONE (22:13)
[2019-10-26] MEDS ORDERED: metoPROLOL SUCCINATE 25 MG TAB.SR.24H (FP) ONE (22:16)
--- NOTE | 2019-10-26 22:31 | PDOC ---
History of Present Illness - General Chief Complaint: Nausea Stated Complaint: ABD PAIN Time Seen by Provider: 10/26/19 21:47 History Source: Patient Exam Limitations: No Limitations - History of Present Illness Initial Comments: 10/26/19 23:36 79 yo female pmh HTN and recent diagnosis of diverticulitis presents to the ED for continued abdominal pain and nausea. Pt was diagnosed 4 days ago with uncomplicated diverticulitis, on Metronidozole and Bactrim for the past 3 days as prescribed. Pt states there is no change in her abdominal pain and is persistently nauseas without vomiting. Denies F/C, CP, SOB, back pain, change sin bowel or bladder habits Past History - Medical History Allergies/Adverse Reactions: Allergies Allergy/AdvReac Type Severity Reaction Status Date / Time No Known Allergies Allergy Verified 10/23/19 09:44 Home Medications: Ambulatory Orders Metoprolol Succinate [Toprol XL -] 50 mg PO BID 09/05/17 Sulfamethoxazole/Trimethoprim [Bactrim Ds -] 1 tab PO BID 10 Days #20 tablet 10/23/19 metroNIDAZOLE [Flagyl -] 500 mg PO TID 10 Days #30 tablet 10/23/19 Anemia: No Asthma: No Cardiac Disorders: No COPD: No GI Disorders: Yes (GERD) HTN: Yes - Surgical History Abdominal Surgery: Yes - Immunization History Immunization Up to Date: Yes - Psycho-Social/Smoking History Smoking Status: No Smoking History: Never smoked Have you smoked in the past 12 months: No Number of Cigarettes Smoked Daily: 0 - Substance Abuse Hx (Audit-C & DAST Scrn) How often the patient has a drink containing alcohol: Never Score: In Men: 4 or > Positive; In Women: 3 or > Positive: 0 Screen Result (Pos requires Nsg. Audit-10AR): Negative Review of Systems - Review of Systems Constitutional: Yes: Symptoms Reported HEENTM: Yes: Symptoms Reported Respiratory: Yes: Symptoms reported Cardiac (ROS): Yes: Symptoms Reported ABD/GI: Yes: Symptoms Reported : Yes: Symptoms Reported Musculoskeletal: Yes: Symptoms Reported Integumentary: Yes: Symptoms Reported Neurological: Yes: Symptoms reported *Physical Exam - Vital Signs Last Vital Signs Temp Pulse Resp BP Pulse Ox 98.3 F 61 20 202/92 H 96 10/26/19 21:44 10/26/19 21:44 10/26/19 21:44 10/26/19 21:44 10/26/19 21:44 - Physical Exam General Appearance: Yes: Nourished, Appropriately Dressed. No: Apparent Distress HEENT: positive: EOMI Neck: positive: Supple. negative: Carotid bruit Respiratory/Chest: positive: Lungs Clear, Normal Breath Sounds. negative: Respiratory Distress, Accessory Muscle Use, Rapid RR, Crackles, Rales, Rhonchi, Stridor, Wheezing Cardiovascular: positive: Regular Rhythm, Regular Rate, S1, S2. negative: Edema, JVD, Murmur Vascular Pulses: Dorsalis-Pedis (R): 4+, Doralis-Pedis (L): 4+ Gastrointestinal/Abdominal: positive: Flat, Soft. negative: Pulsatile Mass, Protuberent, Distended, Guarding, Rebound, Tenderness Musculoskeletal: negative: CVA Tenderness Extremity: positive: Normal Capillary Refill, Normal Inspection, Normal Range of Motion Integumentary: positive: Normal Color, Dry, Warm Neurologic: positive: Fully Oriented, Alert, Normal Mood/Affect, Normal Response ED Treatment Course - RADIOLOGY Radiology Studies Ordered: Category Date Time Status CHEST X-RAY PORTABLE* [RAD] Stat Radiology 10/26/19 22:23 Ordered - Medications Given in the ED: ED Medications Discontinued Medications Generic Name Dose Route Start Last Admin Trade Name Freq PRN Reason Stop Dose Admin Metoprolol Succinate 25 mg 10/26/19 22:13 10/26/19 22:23 Toprol Xl - PO 10/26/19 22:14 25 mg ONCE ONE Administration Medical Decision Making - Medical Decision Making 10/26/19 23:18 79 yo female pmh HTN and recent diagnosis of diverticulitis presents to the ED for continued abdominal pain and nausea. Pt was diagnosed 4 days ago with uncomplicated diverticulitis, on Metronidozole and Bactrim for the past 3 days as prescribed. Pt states there is no change in her abdominal pain and is persistently nauseas without vomiting. Denies F/C, CP, SOB, back pain, change sin bowel or bladder habits Vitals show elevated BP Given home dose Metoprolol 25 mg, states she did not take her night time dose. Pt also states everytime she has her BP checked at the Doctors office it is very elevated Ordered labs including lactate and cardiac work up Pt refuses labs, IV and potential for repeat CT scan on this visit. States she feels much better since arrival to the ED Pt signed AMA form The patient is clinically not intoxicated, free from distracting pain, appears to have intact insight, judgment and reason and in my medical opinion has the capacity to make decisions. The patient is also not under any duress to leave the hospital. In this scenario, it would be battery to subject a patient to treatment against his/her will. I have voiced my concerns for the patient's health given that a full evaluation and treatment had not occurred. I have discussed the need for continued evaluation to determine if their symptoms are caused by a condition that present risk of or morbidity. Risks including but not limited to , permanent disability, prolonged hospitalization, prolonged illness, were discussed. I tried offering alternative options in hopes that the patient might be amenable to partial evaluation and treatment which would be medically beneficial to the patient, though the patient declined my options and insisted on leaving. Because I have been unable to convince the patient to stay, I answered all of their questions about their condition and asked them to return to the ED as soon as possible to complete their evaluation, especially if their symptoms worsen or do not improve. I emphasized that leaving against medical advice does not preclude returning here for further evaluation. I asked the patient to return if they change their mind about the further evaluation and treatment. I strongly encouraged the patient to return to this Emergency Department or any Emergency Department at any time, particularly with worsening symptoms. Recommended pt continue antibiotics and F/U with PCP. Pt states she will take a taxi home and has keys to her home. Discharge - Discharge Information Problems reviewed: Yes Clinical Impression/Diagnosis: Diverticulitis, Nausea Disposition: AGAINST MEDICAL ADVICE - Admission No - Follow up/Referral Referrals: Holger Llanes MD [Primary Care Provider] - - Patient Discharge Instructions Patient Printed Discharge Instructions: DI for Diverticulitis Additional Instructions: You left the ER today against medical advice. Please continue taking the antibiotics as prescribed and see your Primary doctor, Doctor llanes within the next 48 hours. Return to the ER anytime for completion of your evaluation. Thank you - Post Discharge Activity
[2019-10-26 23:36] VITALS: TEMP 97.9
[2019-10-26 23:40] VITALS: BP 215/74; PULSE 64
--- NOTE | 2019-10-27 12:53 | EKG ---
Test Reason : Blood Pressure : / mmHG Vent. 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
== END 2019-10-26 23:25 | disposition left against medical advice (07) ==
LOC: JER 21:13
DX: K57.92 Diverticulitis of intestine, part unspecified, without perforation or abscess without bleeding (principal)
CPT/HCPCS: 71045-TC-FY; 93005; 93010; 99284-25

== ENCOUNTER 2020-11-08 17:55 | Inpatient (IN) | payer BC ==
[2020-11-08 18:13] VITALS: BMI 32.1
[2020-11-08] MEDS ORDERED: ACETAMINOPHEN 1000 MG/100 ML VIAL (NON FORMULARY) IVPB ONE (20:35)
[2020-11-08] MEDS ORDERED: ACETAMINOPHEN INJECTION 100 ML IVPB ONE (20:37)
[2020-11-08 20:44] LABS: HEMATOCRIT 37.8 % (32.4-45.2); MCH 31.5 pg (25.7-33.7); MCHC 34.3 g/dl (32.0-36.0); MEAN CELL VOLUME 91.7 fl (80-96); MEAN PLT VOLUME 7.4 fl (7.5-11.1); PLATELET COUNT 280 10^3/uL (134-434); RBC 4.13 M/mm3 (3.60-5.2); RDW 14.6 % (11.6-15.6); WHITE BLOOD COUNT 10.9 K/mm3 (4.0-10.0)
[2020-11-08 20:54] LABS: INR 1.04 (0.83-1.09); PROTHROMBIN TIME (PATIENT) 12.6 SEC (9.7-13.0)
[2020-11-08 20:57] LABS: ACTIVATED PTT 29.4 SECONDS (25.2-36.5)
[2020-11-08 21:06] LABS: CHLORIDE 103 mmol/L (98-107); SODIUM 139 mmol/L (136-145)
[2020-11-08 21:08] LABS: ALBUMIN 3.7 g/dl (3.4-5.0); CALCIUM 9.1 mg/dL (8.5-10.1)
[2020-11-08 21:09] LABS: ANION GAP 8 MMOL/L (8-16); BLOOD UREA NITROGEN 17.6 mg/dL (7-18); CO2 29 mmol/L (21-32); GLUCOSE,RANDOM 200 mg/dL (74-106)
[2020-11-08 21:12] LABS: SGOT/AST 30 U/L (15-37)
[2020-11-08 21:13] LABS: BILIRUBIN,TOTAL 0.3 mg/dL (0.2-1); TOT PROT 7.5 g/dl (6.4-8.2)
[2020-11-08 21:31] LABS: EPI CELLS 2 /uL (0-25.1); HYALINE CASTS 1 /uL (0-3.1); URINE APPEARANCE CLOUDY; URINE BACTERIA >9,000 /uL (0-1359); URINE BILIRUBIN NEGATIVE (NEGATIVE); URINE COLOR YELLOW; URINE GLUCOSE (UA) 1+ (NEGATIVE); URINE KETONE NEGATIVE (NEGATIVE); URINE LEUK ESTERASE 3+ (NEGATIVE); URINE NITRITE NEGATIVE (NEGATIVE); URINE PROTEIN 1+ (NEGATIVE); URINE RBC 7 /uL (0-23.9); URINE UROBILINOGEN 0.2 mg/dL (0.2-1.0); URINE WBC 236 /uL (0-25.8)
[2020-11-08] MEDS ORDERED: CEFTRIAXONE 1 GM in DEXTROSE 5%-WATER - 100 ML IVPB ONE (21:46)
[2020-11-08 21:50] LABS: ALK PHOS 108 U/L (45-117); SGPT/ALT 36 U/L (13-61)
[2020-11-08] MEDS ORDERED: CEFTRIAXONE 1 GM/50 ML BAG ONE (21:51)
[2020-11-09] MEDS ORDERED: MEROPENEM 1 GM in DEXTROSE 5%-WATER 100 ML IVPB ONE (00:38)
[2020-11-09] MEDS ORDERED: DEXTROSE 5%-WATER 100 ML IVPB ONE ×2 (01:43→09:56)
[2020-11-09] MEDS ORDERED: MEROPENEM 1 GM VIAL (RESTRICTED TO ID) IVPB ONE ×2 (01:43→09:55)
[2020-11-09] MEDS ORDERED: INSULIN (NOVOLOG) ASPART 100 UNITS/ML 10ML VIAL ONE (06:53)
[2020-11-09] MEDS: INSULIN SLIDING SCALE (NOVOLOG) 1 VIAL SQ SCH ×4 (06:53→21:25)
[2020-11-09 08:41] LABS: HEMATOCRIT 39.5 % (32.4-45.2); HEMOGLOBIN 13.6 GM/dL (10.7-15.3); MCH 31.7 pg (25.7-33.7); MCHC 34.4 g/dl (32.0-36.0); MEAN CELL VOLUME 92.1 fl (80-96); MEAN PLT VOLUME 7.8 fl (7.5-11.1); PLATELET COUNT 280 10^3/uL (134-434); RBC 4.28 M/mm3 (3.60-5.2); RDW 15.1 % (11.6-15.6); WHITE BLOOD COUNT 9.1 K/mm3 (4.0-10.0)
[2020-11-09 09:13] LABS: ALBUMIN 3.4 g/dl (3.4-5.0); CALCIUM 9.1 mg/dL (8.5-10.1)
[2020-11-09 09:14] LABS: MAGNESIUM 1.6 mg/dL (1.8-2.4)
[2020-11-09 09:16] LABS: CREATININE 0.9 mg/dL (0.55-1.3)
[2020-11-09 09:18] LABS: BILIRUBIN,TOTAL 0.5 mg/dL (0.2-1); TOT PROT 7.1 g/dl (6.4-8.2)
[2020-11-09] MEDS ORDERED: MAGNESIUM SULF 50% (8.12 MEQ/2 ML-1 GM VIAL) IVPB ONE (09:18)
[2020-11-09] MEDS ORDERED: MEROPENEM 1 GM in DEXTROSE 5%-WATER 100 ML IVPB SCH (10:00)
[2020-11-09] MEDS: ENOXAPARIN NA (PORCINE) 40 MG/0.4 ML DISP.SYRIN SQ SCH (10:07)
[2020-11-09] MEDS: LOSARTAN POTASSIUM 50 MG TABLET PO SCH (10:07)
[2020-11-09] MEDS: LABETALOL HCL 100 MG TABLET (FP) PO SCH ×3 (10:08→22:26)
[2020-11-09] MEDS: ACETAMINOPHEN 325 MG TABLET (FP) PO PRN ×2 (10:42→20:23)
[2020-11-09] MEDS ORDERED: cefTRIAXone SODIUM 1 GM VIAL ONE (13:03)
[2020-11-09] MEDS ORDERED: DEXTROSE 5%-WATER - 50 ML IVPB ONE (13:04)
[2020-11-09] MEDS: CEFTRIAXONE 1 GM in DEXTROSE 5%-WATER - 50 ML IVPB SCH (13:08)
[2020-11-09] MEDS ORDERED: ASPIRIN 81 MG CHEWABLE TABLETS PO SCH (13:30)
[2020-11-09] MEDS: ASPIRIN 81 MG CHEWABLE TABLETS PO SCH (14:27)
[2020-11-09] MEDS ORDERED: ACETAMINOPHEN 325 MG TABLET (FP) ONE (20:20)
[2020-11-09] MEDS ORDERED: FAMOTIDINE 10 MG TABLET PO ONE (21:02)
[2020-11-09] MEDS: ATORVASTATIN CA 20 MG TABLET (FP) PO SCH (21:25)
[2020-11-09] MEDS: amLODIPine BESYLATE 10 MG TABLET (FP) PO SCH ×2 (21:25→22:27)
[2020-11-10] MEDS: INSULIN SLIDING SCALE (NOVOLOG) 1 VIAL SQ SCH ×4 (06:38→21:14)
[2020-11-10] MEDS: ACETAMINOPHEN 325 MG TABLET (FP) PO PRN ×2 (06:38→21:09)
[2020-11-10] MEDS ORDERED: cefTRIAXone SODIUM 1 GM VIAL ONE (08:07)
[2020-11-10] MEDS ORDERED: DEXTROSE 5%-WATER - 50 ML IVPB ONE (08:08)
[2020-11-10] MEDS: ASPIRIN 81 MG CHEWABLE TABLETS PO SCH (09:37)
[2020-11-10] MEDS: ENOXAPARIN NA (PORCINE) 40 MG/0.4 ML DISP.SYRIN SQ SCH (09:37)
[2020-11-10] MEDS: LOSARTAN POTASSIUM 50 MG TABLET PO SCH (09:37)
[2020-11-10] MEDS: CEFTRIAXONE 1 GM in DEXTROSE 5%-WATER - 50 ML IVPB SCH (09:38)
[2020-11-10] MEDS: LABETALOL HCL 100 MG TABLET (FP) PO SCH ×2 (09:39→21:09)
[2020-11-10 09:49] LABS: BASO % 1.2 % (0-2.0); EOS % 3.9 % (0-4.5); HEMATOCRIT 36.4 % (32.4-45.2); HEMOGLOBIN 12.4 GM/dL (10.7-15.3); LYMPH % 16.5 % (8-40); MCH 31.3 pg (25.7-33.7); MCHC 34.1 g/dl (32.0-36.0); MEAN CELL VOLUME 91.7 fl (80-96); MEAN PLT VOLUME 7.7 fl (7.5-11.1); MONO % 10.4 % (3.8-10.2); PLATELET COUNT 284 10^3/uL (134-434); RBC 3.97 M/mm3 (3.60-5.2); RDW 15.1 % (11.6-15.6); WHITE BLOOD COUNT 6.6 K/mm3 (4.0-10.0)
[2020-11-10 10:13] LABS: BLOOD UREA NITROGEN 22.6 mg/dL (7-18); CALCIUM 8.7 mg/dL (8.5-10.1)
[2020-11-10 10:14] LABS: ALBUMIN 3.2 g/dl (3.4-5.0); MAGNESIUM 2.1 mg/dL (1.8-2.4)
[2020-11-10 10:16] LABS: CREATININE 0.9 mg/dL (0.55-1.3); PHOSPHOROUS 3.4 mg/dL (2.5-4.9)
[2020-11-10 10:17] LABS: BILIRUBIN,TOTAL 0.6 mg/dL (0.2-1); TOT PROT 6.9 g/dl (6.4-8.2)
[2020-11-10] MEDS ORDERED: INSULIN (NOVOLOG) ASPART 100 UNITS/ML 10ML VIAL ONE (12:09)
[2020-11-10] MEDS: amLODIPine BESYLATE 10 MG TABLET (FP) PO SCH (21:09)
[2020-11-10] MEDS: ATORVASTATIN CA 20 MG TABLET (FP) PO SCH (21:09)
[2020-11-11] MEDS: INSULIN SLIDING SCALE (NOVOLOG) 1 VIAL SQ SCH ×4 (06:05→21:40)
[2020-11-11] MEDS ORDERED: cefTRIAXone SODIUM 1 GM VIAL ONE (08:16)
[2020-11-11] MEDS ORDERED: DEXTROSE 5%-WATER - 50 ML IVPB ONE (08:17)
[2020-11-11] MEDS: ACETAMINOPHEN 325 MG TABLET (FP) PO PRN ×2 (08:27→19:55)
[2020-11-11] MEDS: ENOXAPARIN NA (PORCINE) 40 MG/0.4 ML DISP.SYRIN SQ SCH (09:20)
[2020-11-11] MEDS: ASPIRIN 81 MG CHEWABLE TABLETS PO SCH (09:20)
[2020-11-11] MEDS: LOSARTAN POTASSIUM 50 MG TABLET PO SCH (09:20)
[2020-11-11] MEDS: LABETALOL HCL 100 MG TABLET (FP) PO SCH ×2 (09:21→21:46)
[2020-11-11] MEDS: CEFTRIAXONE 1 GM in DEXTROSE 5%-WATER - 50 ML IVPB SCH (09:21)
[2020-11-11 09:38] LABS: BASO % 1.1 % (0-2.0); EOS % 5.1 % (0-4.5); LYMPH % 19.3 % (8-40); MCH 31.7 pg (25.7-33.7); MCHC 34.3 g/dl (32.0-36.0); MEAN CELL VOLUME 92.5 fl (80-96); MONO % 11.5 % (3.8-10.2); PLATELET COUNT 316 10^3/uL (134-434); RBC 4.11 M/mm3 (3.60-5.2); RDW 15.1 % (11.6-15.6); WHITE BLOOD COUNT 7.8 K/mm3 (4.0-10.0)
[2020-11-11 10:07] LABS: ALBUMIN 3.4 g/dl (3.4-5.0); BLOOD UREA NITROGEN 19.8 mg/dL (7-18)
[2020-11-11 10:10] LABS: CREATININE 0.8 mg/dL (0.55-1.3)
[2020-11-11 10:11] LABS: PHOSPHOROUS 3.6 mg/dL (2.5-4.9)
[2020-11-11 10:12] LABS: TOT PROT 7.1 g/dl (6.4-8.2)
[2020-11-11 10:22] LABS: BILIRUBIN,TOTAL 0.6 mg/dL (0.2-1)
[2020-11-11] MEDS ORDERED: FAMOTIDINE 20 MG TABLET PO ONE ×3 (15:01→23:19)
[2020-11-11] MEDS ORDERED: PT OWN MED DRAWER 7, Y5N ONE (16:02)
[2020-11-11] MEDS: ATORVASTATIN CA 20 MG TABLET (FP) PO SCH (21:46)
[2020-11-11] MEDS: amLODIPine BESYLATE 10 MG TABLET (FP) PO SCH (21:46)
[2020-11-12] MEDS ORDERED: PT OWN MED DRAWER 7, Y5N ONE ×4 (05:31→11:26)
[2020-11-12] MEDS: ACETAMINOPHEN 325 MG TABLET (FP) PO PRN ×2 (05:40→20:59)
[2020-11-12] MEDS ORDERED: CEPHALEXIN MONOHYDRATE 250 MG CAPSULE (FP) PO SCH (06:00)
[2020-11-12] MEDS: INSULIN SLIDING SCALE (NOVOLOG) 1 VIAL SQ SCH ×4 (06:00→20:59)
[2020-11-12 08:43] LABS: HEMATOCRIT 35.2 % (32.4-45.2); HEMOGLOBIN 12.1 GM/dL (10.7-15.3); MCH 31.9 pg (25.7-33.7); MCHC 34.3 g/dl (32.0-36.0); MEAN CELL VOLUME 92.9 fl (80-96); MEAN PLT VOLUME 7.9 fl (7.5-11.1); PLATELET COUNT 295 10^3/uL (134-434); RBC 3.79 M/mm3 (3.60-5.2); RDW 14.8 % (11.6-15.6); WHITE BLOOD COUNT 7.7 K/mm3 (4.0-10.0)
[2020-11-12] MEDS ORDERED: CEFTRIAXONE 1,000 MG in DEXTROSE 5%-WATER - 50 ML IVPB ONE (08:56)
[2020-11-12] MEDS ORDERED: CEFTRIAXONE 1 GM in DEXTROSE 5%-WATER - 50 ML IVPB ONE (09:04)
[2020-11-12 09:14] LABS: ALBUMIN 3.2 g/dl (3.4-5.0); CALCIUM 8.8 mg/dL (8.5-10.1)
[2020-11-12 09:17] LABS: CREATININE 0.8 mg/dL (0.55-1.3); PHOSPHOROUS 4.2 mg/dL (2.5-4.9)
[2020-11-12 09:18] LABS: BILIRUBIN,TOTAL 0.4 mg/dL (0.2-1)
[2020-11-12 09:19] LABS: TOT PROT 6.7 g/dl (6.4-8.2)
[2020-11-12 09:34] LABS: BLOOD UREA NITROGEN 15.7 mg/dL (7-18)
[2020-11-12] MEDS ORDERED: SODIUM ZIRCONIUM CYCLOSILICATE (LOKELMA) 10 GM PACKET PO ONE (09:45)
[2020-11-12] MEDS: LOSARTAN POTASSIUM 50 MG TABLET PO SCH (10:07)
[2020-11-12] MEDS: LABETALOL HCL 100 MG TABLET (FP) PO SCH ×2 (10:07→20:59)
[2020-11-12] MEDS: ASPIRIN 81 MG CHEWABLE TABLETS PO SCH (10:07)
[2020-11-12] MEDS: ENOXAPARIN NA (PORCINE) 40 MG/0.4 ML DISP.SYRIN SQ SCH (10:09)
[2020-11-12] MEDS ORDERED: INSULIN (NOVOLOG) ASPART 100 UNITS/ML 10ML VIAL ONE (12:20)
[2020-11-12] MEDS: NITROFURANTOIN MACROCRYSTAL 50 MG CAPSULE (FP) PO SCH ×3 (12:42→23:34)
[2020-11-12] MEDS: FAMOTIDINE 20 MG TABLET PO PRN (20:58)
[2020-11-12] MEDS: amLODIPine BESYLATE 10 MG TABLET (FP) PO SCH (20:59)
[2020-11-12] MEDS: ATORVASTATIN CA 20 MG TABLET (FP) PO SCH (20:59)
[2020-11-13] MEDS: NITROFURANTOIN MACROCRYSTAL 50 MG CAPSULE (FP) PO SCH ×3 (05:34→17:44)
[2020-11-13 09:27] LABS: HEMOGLOBIN 12.6 GM/dL (10.7-15.3); MCH 31.5 pg (25.7-33.7); MCHC 34.1 g/dl (32.0-36.0); MEAN CELL VOLUME 92.3 fl (80-96); MEAN PLT VOLUME 7.5 fl (7.5-11.1); PLATELET COUNT 316 10^3/uL (134-434); RBC 4.01 M/mm3 (3.60-5.2); RDW 14.8 % (11.6-15.6); WHITE BLOOD COUNT 8.6 K/mm3 (4.0-10.0)
[2020-11-13] MEDS ORDERED: PT OWN MED DRAWER 7, Y5N ONE ×2 (09:59→17:25)
[2020-11-13] MEDS: LOSARTAN POTASSIUM 50 MG TABLET PO SCH (10:03)
[2020-11-13] MEDS: ASPIRIN 81 MG CHEWABLE TABLETS PO SCH (10:03)
[2020-11-13 10:04] LABS: ALBUMIN 3.6 g/dl (3.4-5.0); BLOOD UREA NITROGEN 14.3 mg/dL (7-18); CALCIUM 9.2 mg/dL (8.5-10.1)
[2020-11-13] MEDS: LABETALOL HCL 100 MG TABLET (FP) PO SCH ×2 (10:04→21:53)
[2020-11-13] MEDS: ENOXAPARIN NA (PORCINE) 40 MG/0.4 ML DISP.SYRIN SQ SCH (10:04)
[2020-11-13 10:09] LABS: CREATININE 0.8 mg/dL (0.55-1.3)
[2020-11-13 10:10] LABS: BILIRUBIN,TOTAL 0.5 mg/dL (0.2-1); TOT PROT 7.4 g/dl (6.4-8.2)
[2020-11-13] MEDS: INSULIN SLIDING SCALE (NOVOLOG) 1 VIAL SQ SCH ×4 (11:48→21:54)
[2020-11-13] MEDS: amLODIPine BESYLATE 10 MG TABLET (FP) PO SCH (21:52)
[2020-11-13] MEDS: ATORVASTATIN CA 20 MG TABLET (FP) PO SCH (21:52)
[2020-11-13] MEDS: FAMOTIDINE 20 MG TABLET PO PRN (21:56)
[2020-11-14] MEDS: NITROFURANTOIN MACROCRYSTAL 50 MG CAPSULE (FP) PO SCH ×4 (01:03→17:52)
[2020-11-14] MEDS: ACETAMINOPHEN 325 MG TABLET (FP) PO PRN (02:38)
[2020-11-14] MEDS: INSULIN SLIDING SCALE (NOVOLOG) 1 VIAL SQ SCH ×3 (06:03→17:54)
[2020-11-14 08:55] LABS: HEMATOCRIT 36.4 % (32.4-45.2); HEMOGLOBIN 12.4 GM/dL (10.7-15.3); MCH 31.3 pg (25.7-33.7); MEAN CELL VOLUME 92.2 fl (80-96); MEAN PLT VOLUME 7.6 fl (7.5-11.1); PLATELET COUNT 304 10^3/uL (134-434); RBC 3.95 M/mm3 (3.60-5.2); RDW 14.7 % (11.6-15.6); WHITE BLOOD COUNT 8.7 K/mm3 (4.0-10.0)
[2020-11-14] MEDS ORDERED: PT OWN MED DRAWER 7, Y5N ONE (09:01)
[2020-11-14] MEDS: LABETALOL HCL 100 MG TABLET (FP) PO SCH (09:07)
[2020-11-14] MEDS: FAMOTIDINE 20 MG TABLET PO PRN (09:07)
[2020-11-14] MEDS: LOSARTAN POTASSIUM 50 MG TABLET PO SCH (09:07)
[2020-11-14] MEDS: ENOXAPARIN NA (PORCINE) 40 MG/0.4 ML DISP.SYRIN SQ SCH (09:07)
[2020-11-14] MEDS: ASPIRIN 81 MG CHEWABLE TABLETS PO SCH (09:07)
[2020-11-14 09:21] LABS: BLOOD UREA NITROGEN 13.3 mg/dL (7-18)
[2020-11-14 09:23] LABS: CALCIUM 9.1 mg/dL (8.5-10.1); MAGNESIUM 1.9 mg/dL (1.8-2.4)
[2020-11-14 09:25] LABS: CREATININE 0.7 mg/dL (0.55-1.3)
[2020-11-14 09:26] LABS: PHOSPHOROUS 3.7 mg/dL (2.5-4.9)
[2020-11-14 10:43] VITALS: TEMP 97.9
[2020-11-14 14:42] VITALS: BP 133/74; PULSE 65
[2020-11-14] MEDS ORDERED: INSULIN (NOVOLOG) ASPART 100 UNITS/ML 10ML VIAL ONE (16:17)
[2020-11-14] MEDS ORDERED: LABETALOL HCL 100 MG TABLET (FP) PO SCH (22:00)
== END 2020-11-14 18:11 | DRG 690 ==
LOC: JER 17:55 → JERBED 21:50 → J8W 11-09 00:49
PROVIDERS: ADMIT Internal Medicine; ATTEND Internal Medicine
DX: N39.0 Urinary tract infection, site not specified (principal); B96.20 Unspecified Escherichia coli [E. coli] as the cause of diseases classified elsewhere; S80.01XA Contusion of right knee, initial encounter; E66.9 Obesity, unspecified; Z68.32 Body mass index [BMI] 32.0-32.9, adult; I10 Essential (primary) hypertension; K21.9 Gastro-esophageal reflux disease without esophagitis; M25.569 Pain in unspecified knee; R26.81 Unsteadiness on feet; E11.65 Type 2 diabetes mellitus with hyperglycemia; R55 Syncope and collapse; W18.30XA Fall on same level, unspecified, initial encounter; Y92.090 Kitchen in other non-institutional residence as the place of occurrence of the external cause
CPT/HCPCS: 36415; 70450-TC; 71045-TC-FY; 72100-TC-FY; 72125-TC; 72170-TC-FY; 73562-TC-RT-FY; 80048; 80053; 80061; 81003; 82550; 82553; 82962; 83036; 83735; 84100; 84132; 84443; 84484; 85025; 85027; 85610; 85730; 87086; 87186; 93005; 93010; 93306-TC; 97116-GP; 97162-GP; 99285-25; C9803; J0131; U0003; U0005

== ENCOUNTER 2020-12-06 16:28 | Observation (INO) | payer BC ==
[2020-12-06 16:33] VITALS: BMI 29.2
[2020-12-06 20:15] LABS: BASO % 0.7 % (0-2.0); HEMOGLOBIN 13.5 GM/dL (10.7-15.3); LYMPH % 21.1 % (8-40); MCH 31.2 pg (25.7-33.7); MCHC 33.7 g/dl (32.0-36.0); MEAN CELL VOLUME 92.6 fl (80-96); MEAN PLT VOLUME 7.6 fl (7.5-11.1); MONO % 9.3 % (3.8-10.2); NEUT % 65.9 % (42.8-82.8); PLATELET COUNT 273 10^3/uL (134-434); RBC 4.32 M/mm3 (3.60-5.2); RDW 14.8 % (11.6-15.6); WHITE BLOOD COUNT 9.2 K/mm3 (4.0-10.0)
[2020-12-06 20:38] LABS: CHLORIDE 106 mmol/L (98-107); SODIUM 141 mmol/L (136-145)
[2020-12-06 20:40] LABS: ALBUMIN 3.9 g/dl (3.4-5.0); CALCIUM 9.4 mg/dL (8.5-10.1)
[2020-12-06 20:41] LABS: ANION GAP 5 MMOL/L (8-16); BLOOD UREA NITROGEN 10.4 mg/dL (7-18); CO2 29 mmol/L (21-32); GLUCOSE,RANDOM 118 mg/dL (74-106)
[2020-12-06 20:43] LABS: SGOT/AST 28 U/L (15-37); SGPT/ALT 28 U/L (13-61)
[2020-12-06 20:44] LABS: CREATININE 0.7 mg/dL (0.55-1.3)
[2020-12-06 20:45] LABS: BILIRUBIN,TOTAL 0.4 mg/dL (0.2-1)
[2020-12-06 20:46] LABS: ALK PHOS 92 U/L (45-117)
[2020-12-07 01:17] LABS: EPI CELLS 11 /uL (0-25.1); HYALINE CASTS 1 /uL (0-3.1); PH,URINE 5.5 (5.0-8.0); URINE APPEARANCE CLEAR; URINE BACTERIA 17 /uL (0-1359); URINE BILIRUBIN NEGATIVE (NEGATIVE); URINE COLOR YELLOW; URINE GLUCOSE (UA) NEGATIVE (NEGATIVE); URINE KETONE NEGATIVE (NEGATIVE); URINE LEUK ESTERASE 2+ (NEGATIVE); URINE NITRITE NEGATIVE (NEGATIVE); URINE PROTEIN NEGATIVE (NEGATIVE); URINE RBC 4 /uL (0-23.9); URINE UROBILINOGEN 0.2 mg/dL (0.2-1.0); URINE WBC 77 /uL (0-25.8)
[2020-12-07] MEDS ORDERED: INSULIN SLIDING SCALE (NOVOLOG) 1 VIAL SQ SCH (07:00)
[2020-12-07 09:02] LABS: HEMATOCRIT 39.3 % (32.4-45.2); HEMOGLOBIN 13.5 GM/dL (10.7-15.3); MCH 31.6 pg (25.7-33.7); MCHC 34.4 g/dl (32.0-36.0); MEAN CELL VOLUME 91.9 fl (80-96); MEAN PLT VOLUME 7.6 fl (7.5-11.1); PLATELET COUNT 272 10^3/uL (134-434); RBC 4.28 M/mm3 (3.60-5.2); RDW 14.4 % (11.6-15.6); WHITE BLOOD COUNT 7.7 K/mm3 (4.0-10.0)
[2020-12-07 09:04] LABS: CALCIUM 9.4 mg/dL (8.5-10.1)
[2020-12-07 09:05] LABS: ALBUMIN 3.8 g/dl (3.4-5.0); BLOOD UREA NITROGEN 10.6 mg/dL (7-18)
[2020-12-07 09:08] LABS: CREATININE 0.7 mg/dL (0.55-1.3); PHOSPHOROUS 3.3 mg/dL (2.5-4.9)
[2020-12-07 09:10] LABS: BILIRUBIN,TOTAL 0.5 mg/dL (0.2-1)
[2020-12-07 09:14] LABS: TOT PROT 7.9 g/dl (6.4-8.2)
[2020-12-07] MEDS ORDERED: ASPIRIN COATED 81 MG TABLET.EC PO SCH (10:00)
[2020-12-07] MEDS ORDERED: ENOXAPARIN NA (PORCINE) 40 MG/0.4 ML DISP.SYRIN SQ SCH (10:00)
[2020-12-07] MEDS ORDERED: ERTAPENEM SODIUM 1 GM in SODIUM CHLORIDE 50 ML IVPB SCH (10:00)
[2020-12-07] MEDS ORDERED: PANTOPRAZOLE 40 MG TABLET PO SCH (10:00)
[2020-12-07] MEDS ORDERED: LABETALOL HCL 200 MG TABLET (FP) PO SCH (10:00)
[2020-12-07] MEDS ORDERED: ENOXAPARIN NA (PORCINE) 40 MG/0.4 ML DISP.SYRIN SQ ONE (10:05)
[2020-12-07] MEDS ORDERED: LABETALOL HCL 100 MG TABLET (FP) ONE (10:05)
[2020-12-07] MEDS ORDERED: ASPIRIN COATED 81 MG TABLET.EC ONE (10:05)
[2020-12-07] MEDS ORDERED: PANTOPRAZOLE 40 MG TABLET ONE (10:06)
[2020-12-07 10:22] VITALS: BP 168/94; PULSE 82; TEMP 98
[2020-12-07] MEDS ORDERED: ATORVASTATIN CA 40 MG TABLET (FP) PO SCH (22:00)
[2020-12-07] MEDS ORDERED: ATORVASTATIN CA 20 MG TABLET (FP) PO SCH (22:00)
== END 2020-12-07 11:06 | disposition home or self-care (01) ==
LOC: JER 16:28 → JERBED 12-07 00:48
PROVIDERS: ADMIT Internal Medicine
PROC: 3E023GC Introduction of Other Therapeutic Substance into Muscle, Percutaneous Approach (ICD-10-PCS; principal; 2020-12-07)
PROC: 3E03329 Introduction of Other Anti-infective into Peripheral Vein, Percutaneous Approach (ICD-10-PCS; 2020-12-07)
DX: R55 Syncope and collapse (principal); I10 Essential (primary) hypertension; E78.5 Hyperlipidemia, unspecified; Z87.440 Personal history of urinary (tract) infections; E11.9 Type 2 diabetes mellitus without complications; Z98.49 Cataract extraction status, unspecified eye; Z29.9 Encounter for prophylactic measures, unspecified
CPT/HCPCS: 36415; 70450-TC; 71046-TC-FY; 80053; 81003; 82550; 82962; 83036; 83690; 83735; 84100; 84484; 85025; 85027; 87086; 93005; 93010; 96365; 96372; 97116-GP; 99285-25; C9803; G0378; U0003; U0005

== ENCOUNTER 2021-01-01 13:31 | Emergency (ER) | payer BC ==
[2021-01-01 14:12] VITALS: BP 158/74; PULSE 63; TEMP 97.6; BMI 29.2
== END 2021-01-01 15:35 | disposition home or self-care (01) ==
LOC: JER 13:31
DX: S40.021A Contusion of right upper arm, initial encounter (principal); W46.0XXA Contact with hypodermic needle, initial encounter
CPT/HCPCS: 99282-25

== ENCOUNTER 2021-01-05 14:07 | Emergency (ER) | payer BC ==
[2021-01-05 14:27] VITALS: TEMP 98; BMI 29.2
[2021-01-05 17:31] LABS: BASO % 0.5 % (0-2.0); HEMATOCRIT 37.7 % (32.4-45.2); HEMOGLOBIN 12.5 GM/dL (10.7-15.3); LYMPH % 10.5 % (8-40); MCH 29.8 pg (25.7-33.7); MEAN CELL VOLUME 90.2 fl (80-96); MEAN PLT VOLUME 7.4 fl (7.5-11.1); MONO % 7.5 % (3.8-10.2); NEUT % 80.5 % (42.8-82.8); PLATELET COUNT 375 10^3/uL (134-434); RBC 4.18 M/mm3 (3.60-5.2); RDW 14.4 % (11.6-15.6); WHITE BLOOD COUNT 15.1 K/mm3 (4.0-10.0)
[2021-01-05 17:58] LABS: CHLORIDE 104 mmol/L (98-107); SODIUM 141 mmol/L (136-145)
[2021-01-05 18:00] LABS: CALCIUM 9.2 mg/dL (8.5-10.1)
[2021-01-05 18:01] LABS: ALBUMIN 3.3 g/dl (3.4-5.0); ANION GAP 8 MMOL/L (8-16); BLOOD UREA NITROGEN 14.6 mg/dL (7-18); CO2 29 mmol/L (21-32); GLUCOSE,RANDOM 153 mg/dL (74-106)
[2021-01-05 18:04] LABS: CREATININE 0.9 mg/dL (0.55-1.3); SGOT/AST 34 U/L (15-37); SGPT/ALT 34 U/L (13-61)
[2021-01-05 18:05] LABS: BILIRUBIN,TOTAL 0.4 mg/dL (0.2-1)
[2021-01-05 18:06] LABS: TOT PROT 7.6 g/dl (6.4-8.2)
[2021-01-05 18:07] LABS: ALK PHOS 103 U/L (45-117)
[2021-01-05 18:22] LABS: URINE APPEARANCE CLEAR; URINE BILIRUBIN NEGATIVE (NEGATIVE); URINE COLOR YELLOW; URINE GLUCOSE (UA) NEGATIVE (NEGATIVE)
[2021-01-05 18:23] LABS: PH,URINE 5.5 (5.0-8.0); URINE KETONE NEGATIVE (NEGATIVE); URINE PROTEIN 30 (NEGATIVE)
[2021-01-05 18:24] LABS: URINE LEUK ESTERASE NEGATIVE (NEGATIVE); URINE NITRITE NEGATIVE (NEGATIVE)
[2021-01-05] MEDS ORDERED: DIPHTH,PERTUSS(ACELL),TET 0.5 ML DISP.SYRIN IM ONE ×2 (18:24→18:58)
[2021-01-05] MEDS ORDERED: ACETAMINOPHEN 325 MG TABLET (FP) PO ONE (18:26)
[2021-01-05] MEDS ORDERED: ACETAMINOPHEN 325 MG TABLET (FP) ONE (18:58)
[2021-01-05 19:53] VITALS: BP 148/70; PULSE 80
== END 2021-01-05 19:52 | disposition home or self-care (01) ==
LOC: JER 14:07
PROC: 3E0234Z Introduction of Serum, Toxoid and Vaccine into Muscle, Percutaneous Approach (ICD-10-PCS; principal; 2021-01-05)
DX: S80.211A Abrasion, right knee, initial encounter (principal); S80.212A Abrasion, left knee, initial encounter; M25.561 Pain in right knee; W19.XXXA Unspecified fall, initial encounter; Y92.9 Unspecified place or not applicable
CPT/HCPCS: 36415; 71046-TC-FY; 73562-TC-LT-FY; 73562-TC-RT-FY; 80053; 81003; 82550; 82553; 84484; 85025; 87086; 87186; 90471; 90715; 93005; 93010; 99284-25

== ENCOUNTER 2021-02-08 11:52 | Inpatient (IN) | payer BC ==
[2021-02-08] MEDS ORDERED: VANCOMYCIN 1 GM in D5W (PRE-DOCKED) 1,000 MG/250 ML IVPB ONE (13:02)
[2021-02-08] MEDS ORDERED: PIPERACILLIN/TAZOB 3.375 GM 3.375 GM in DEXTROSE 5%-WATER - 50 ML IVPB ONE (13:03)
[2021-02-08] MEDS ORDERED: VANCOMYCIN 1 GRAM (PRE-DOCKED) 1,000 MG/250 ML BAG IVPB ONE (13:08)
[2021-02-08] MEDS ORDERED: PIPERACILLIN/TAZOB 3.375 GM 3.375 GM/50 ML BAG IVPB ONE (13:09)
[2021-02-08 13:18] LABS: BASO % 1.2 % (0-2.0); EOS % 1.4 % (0-4.5); HEMATOCRIT 36.2 % (32.4-45.2); HEMOGLOBIN 12.3 GM/dL (10.7-15.3); LYMPH % 10.7 % (8-40); MCH 29.7 pg (25.7-33.7); MCHC 33.9 g/dl (32.0-36.0); MEAN CELL VOLUME 87.6 fl (80-96); MEAN PLT VOLUME 7.5 fl (7.5-11.1); MONO % 8.8 % (3.8-10.2); NEUT % 77.9 % (42.8-82.8); PLATELET COUNT 337 10^3/uL (134-434); RBC 4.13 M/mm3 (3.60-5.2); RDW 15.3 % (11.6-15.6); WHITE BLOOD COUNT 9.7 K/mm3 (4.0-10.0)
[2021-02-08 13:34] LABS: ALBUMIN 3.2 g/dl (3.4-5.0); CALCIUM 9.3 mg/dL (8.5-10.1)
[2021-02-08 13:36] LABS: BLOOD UREA NITROGEN 16.2 mg/dL (7-18)
[2021-02-08 13:38] LABS: CREATININE 0.8 mg/dL (0.55-1.3)
[2021-02-08 13:40] LABS: BILIRUBIN,TOTAL 0.3 mg/dL (0.2-1); TOT PROT 7.5 g/dl (6.4-8.2)
[2021-02-08] MEDS: ACETAMINOPHEN 325 MG TABLET (FP) PO PRN (21:10)
[2021-02-08] MEDS ORDERED: PIPERACILLIN/TAZOB 3.375 GM 3.375 GM in DEXTROSE 5%-WATER - 50 ML IVPB SCH (22:30)
[2021-02-08] MEDS: PIPERACILLIN/TAZOB 3.375 GM 3.375 GM in DEXTROSE 5%-WATER - 50 ML IVPB SCH (23:55)
[2021-02-09] MEDS ORDERED: DEXTROSE 5%-WATER - 50 ML IVPB ONE ×3 (00:07→15:01)
[2021-02-09] MEDS ORDERED: PIPERACILLIN/TAZOBACTAM 3.375 GM VIAL IVPB ONE ×3 (00:07→15:01)
[2021-02-09] MEDS: PIPERACILLIN/TAZOB 3.375 GM 3.375 GM in DEXTROSE 5%-WATER - 50 ML IVPB SCH ×3 (06:33→17:11)
[2021-02-09] MEDS: ACETAMINOPHEN 325 MG TABLET (FP) PO PRN ×2 (06:59→19:50)
[2021-02-09 08:59] LABS: BASO % 0.8 % (0-2.0); EOS % 3.5 % (0-4.5); HEMATOCRIT 35.3 % (32.4-45.2); LYMPH % 13.4 % (8-40); MCH 29.5 pg (25.7-33.7); MCHC 34.1 g/dl (32.0-36.0); MEAN CELL VOLUME 86.7 fl (80-96); MEAN PLT VOLUME 7.4 fl (7.5-11.1); MONO % 9.1 % (3.8-10.2); NEUT % 73.2 % (42.8-82.8); PLATELET COUNT 359 10^3/uL (134-434); RBC 4.07 M/mm3 (3.60-5.2); RDW 15.3 % (11.6-15.6); WHITE BLOOD COUNT 7.6 K/mm3 (4.0-10.0)
[2021-02-09 09:26] LABS: ALBUMIN 3.1 g/dl (3.4-5.0); CALCIUM 9.3 mg/dL (8.5-10.1)
[2021-02-09 09:27] LABS: BLOOD UREA NITROGEN 13.4 mg/dL (7-18); MAGNESIUM 1.9 mg/dL (1.8-2.4)
[2021-02-09 09:29] LABS: CREATININE 0.8 mg/dL (0.55-1.3); PHOSPHOROUS 3.3 mg/dL (2.5-4.9)
[2021-02-09 09:30] LABS: BILIRUBIN,TOTAL 0.9 mg/dL (0.2-1); TOT PROT 7.3 g/dl (6.4-8.2)
[2021-02-09] MEDS ORDERED: VANCOMYCIN 1 GM in D5W (PRE-DOCKED) 1,000 MG/250 ML IVPB SCH (10:00)
[2021-02-09] MEDS: ENOXAPARIN NA (PORCINE) 40 MG/0.4 ML DISP.SYRIN SQ SCH (10:50)
[2021-02-09] MEDS ORDERED: MAG HYDROX/AL HYDROX/SIMETH 30 ML UNIT-DOSE CUP PO ONE (14:19)
[2021-02-09] MEDS: COLLAGENASE CLOSTRIDIUM HIST. 30 GRAMS TUBE TP SCH (15:03)
[2021-02-10] MEDS ORDERED: DEXTROSE 5%-WATER - 50 ML IVPB ONE ×3 (01:14→18:19)
[2021-02-10] MEDS ORDERED: PIPERACILLIN/TAZOBACTAM 3.375 GM VIAL IVPB ONE ×3 (01:14→18:19)
[2021-02-10] MEDS: PIPERACILLIN/TAZOB 3.375 GM 3.375 GM in DEXTROSE 5%-WATER - 50 ML IVPB SCH ×3 (01:21→18:25)
[2021-02-10] MEDS: COLLAGENASE CLOSTRIDIUM HIST. 30 GRAMS TUBE TP SCH (09:25)
[2021-02-10] MEDS: ENOXAPARIN NA (PORCINE) 40 MG/0.4 ML DISP.SYRIN SQ SCH (09:25)
[2021-02-10] MEDS: ACETAMINOPHEN 325 MG TABLET (FP) PO PRN ×2 (09:28→21:17)
[2021-02-10 10:00] LABS: BASO % 0.9 % (0-2.0); EOS % 1.8 % (0-4.5); HEMATOCRIT 36.9 % (32.4-45.2); HEMOGLOBIN 12.4 GM/dL (10.7-15.3); LYMPH % 10.2 % (8-40); MCH 29.6 pg (25.7-33.7); MCHC 33.7 g/dl (32.0-36.0); MEAN CELL VOLUME 88.1 fl (80-96); MEAN PLT VOLUME 7.4 fl (7.5-11.1); MONO % 8.5 % (3.8-10.2); NEUT % 78.6 % (42.8-82.8); PLATELET COUNT 344 10^3/uL (134-434); RBC 4.18 M/mm3 (3.60-5.2); RDW 15.7 % (11.6-15.6); WHITE BLOOD COUNT 9.1 K/mm3 (4.0-10.0)
[2021-02-10 10:27] LABS: BLOOD UREA NITROGEN 11.4 mg/dL (7-18)
[2021-02-10 10:28] LABS: ALBUMIN 3.1 g/dl (3.4-5.0); MAGNESIUM 1.8 mg/dL (1.8-2.4)
[2021-02-10 10:30] LABS: CREATININE 0.9 mg/dL (0.55-1.3); PHOSPHOROUS 2.8 mg/dL (2.5-4.9)
[2021-02-10 10:32] LABS: BILIRUBIN,TOTAL 0.6 mg/dL (0.2-1); TOT PROT 7.3 g/dl (6.4-8.2)
[2021-02-10 11:19] LABS: ERYTHROCYTE SEDIMENTATION RATE 27 mm/hr (0-30)
[2021-02-10] MEDS ORDERED: ALBUTEROL SO4 2.5/IPRATROPIUM 0.5 INH SOL 3 ML VIAL.NEB. NEB PRN (13:07)
[2021-02-10 15:07] VITALS: BMI 28.1
[2021-02-10] MEDS: INSULIN SLIDING SCALE (NOVOLOG) 1 VIAL SQ SCH (16:28)
[2021-02-10] MEDS: AMINO ACIDS/PROTEIN HYDROLYS 30 ML LIQUID.PKT PO SCH (18:25)
[2021-02-11] MEDS ORDERED: DEXTROSE 5%-WATER - 50 ML IVPB ONE ×3 (00:59→16:51)
[2021-02-11] MEDS ORDERED: PIPERACILLIN/TAZOBACTAM 3.375 GM VIAL IVPB ONE ×3 (00:59→16:51)
[2021-02-11] MEDS: PIPERACILLIN/TAZOB 3.375 GM 3.375 GM in DEXTROSE 5%-WATER - 50 ML IVPB SCH ×3 (01:03→17:02)
[2021-02-11] MEDS: INSULIN SLIDING SCALE (NOVOLOG) 1 VIAL SQ SCH ×3 (06:16→16:58)
[2021-02-11] MEDS ORDERED: LORazepam 2 MG/ML SDV VIAL IVPUSH PRN (09:16)
[2021-02-11] MEDS: MULTIVITAMINS (DAILY MVI) TABLET (FP) PO SCH (09:30)
[2021-02-11] MEDS: ENOXAPARIN NA (PORCINE) 40 MG/0.4 ML DISP.SYRIN SQ SCH (09:30)
[2021-02-11] MEDS: AMINO ACIDS/PROTEIN HYDROLYS 30 ML LIQUID.PKT PO SCH ×2 (09:30→17:02)
[2021-02-11 10:07] LABS: EOS % 2.9 % (0-4.5); HEMATOCRIT 36.7 % (32.4-45.2); HEMOGLOBIN 12.3 GM/dL (10.7-15.3); LYMPH % 14.9 % (8-40); MCH 29.8 pg (25.7-33.7); MCHC 33.6 g/dl (32.0-36.0); MEAN CELL VOLUME 88.6 fl (80-96); MEAN PLT VOLUME 7.5 fl (7.5-11.1); MONO % 9.3 % (3.8-10.2); NEUT % 71.9 % (42.8-82.8); PLATELET COUNT 344 10^3/uL (134-434); RBC 4.14 M/mm3 (3.60-5.2); RDW 15.3 % (11.6-15.6); WHITE BLOOD COUNT 7.2 K/mm3 (4.0-10.0)
[2021-02-11 10:24] LABS: CALCIUM 9.2 mg/dL (8.5-10.1)
[2021-02-11 10:25] LABS: ALBUMIN 3.2 g/dl (3.4-5.0); BLOOD UREA NITROGEN 12.9 mg/dL (7-18)
[2021-02-11 10:28] LABS: CREATININE 0.9 mg/dL (0.55-1.3)
[2021-02-11 10:30] LABS: BILIRUBIN,TOTAL 0.5 mg/dL (0.2-1); TOT PROT 7.2 g/dl (6.4-8.2)
[2021-02-11] MEDS: COLLAGENASE CLOSTRIDIUM HIST. 30 GRAMS TUBE TP SCH (14:36)
[2021-02-11] MEDS: ACETAMINOPHEN 325 MG TABLET (FP) PO PRN (15:04)
[2021-02-11] MEDS: CALCIUM CARBONATE 650 MG TABLET PO PRN (19:42)
[2021-02-11] MEDS ORDERED: LABETALOL HCL 100 MG TABLET (FP) ONE (21:04)
[2021-02-11] MEDS: LABETALOL HCL 200 MG TABLET (FP) PO SCH (21:28)
[2021-02-11] MEDS: ATORVASTATIN CA 20 MG TABLET (FP) PO SCH (21:28)
[2021-02-11] MEDS ORDERED: amLODIPine BESYLATE 10 MG TABLET (FP) PO SCH (22:00)
[2021-02-12] MEDS ORDERED: PIPERACILLIN/TAZOBACTAM 3.375 GM VIAL IVPB ONE ×3 (01:57→17:27)
[2021-02-12] MEDS ORDERED: DEXTROSE 5%-WATER - 50 ML IVPB ONE ×3 (01:57→17:27)
[2021-02-12] MEDS: PIPERACILLIN/TAZOB 3.375 GM 3.375 GM in DEXTROSE 5%-WATER - 50 ML IVPB SCH ×3 (02:05→17:27)
[2021-02-12] MEDS: INSULIN SLIDING SCALE (NOVOLOG) 1 VIAL SQ SCH ×3 (06:00→16:45)
[2021-02-12 09:13] LABS: HEMOGLOBIN 11.7 GM/dL (10.7-15.3); MCH 29.6 pg (25.7-33.7); MCHC 34.3 g/dl (32.0-36.0); MEAN CELL VOLUME 86.2 fl (80-96); MEAN PLT VOLUME 7.3 fl (7.5-11.1); PLATELET COUNT 320 10^3/uL (134-434); RBC 3.94 M/mm3 (3.60-5.2); RDW 15.3 % (11.6-15.6); WHITE BLOOD COUNT 10.3 K/mm3 (4.0-10.0)
[2021-02-12 09:58] LABS: ALBUMIN 2.8 g/dl (3.4-5.0); BLOOD UREA NITROGEN 16.8 mg/dL (7-18)
[2021-02-12 10:01] LABS: CREATININE 0.8 mg/dL (0.55-1.3)
[2021-02-12 10:03] LABS: BILIRUBIN,TOTAL 0.4 mg/dL (0.2-1); TOT PROT 6.6 g/dl (6.4-8.2)
[2021-02-12] MEDS ORDERED: LABETALOL HCL 100 MG TABLET (FP) ONE ×2 (10:36→21:08)
[2021-02-12] MEDS: LOSARTAN POTASSIUM 50 MG TABLET PO SCH (10:43)
[2021-02-12] MEDS: LABETALOL HCL 200 MG TABLET (FP) PO SCH ×2 (10:43→21:17)
[2021-02-12] MEDS: ENOXAPARIN NA (PORCINE) 40 MG/0.4 ML DISP.SYRIN SQ SCH (10:43)
[2021-02-12] MEDS: MULTIVITAMINS (DAILY MVI) TABLET (FP) PO SCH (10:43)
[2021-02-12] MEDS: AMINO ACIDS/PROTEIN HYDROLYS 30 ML LIQUID.PKT PO SCH ×2 (10:43→17:27)
[2021-02-12] MEDS: COLLAGENASE CLOSTRIDIUM HIST. 30 GRAMS TUBE TP SCH (15:13)
[2021-02-12] MEDS: ACETAMINOPHEN 325 MG TABLET (FP) PO PRN (17:58)
[2021-02-12] MEDS ORDERED: PT OWN MED DRAWER 7, Y5N ONE (21:09)
[2021-02-12] MEDS: ATORVASTATIN CA 20 MG TABLET (FP) PO SCH (21:16)
[2021-02-12] MEDS: CALCIUM CARBONATE 650 MG TABLET PO PRN (21:17)
[2021-02-13] MEDS: ACETAMINOPHEN 325 MG TABLET (FP) PO PRN ×2 (01:09→20:26)
[2021-02-13] MEDS ORDERED: DEXTROSE 5%-WATER - 50 ML IVPB ONE ×3 (03:06→17:05)
[2021-02-13] MEDS ORDERED: PIPERACILLIN/TAZOBACTAM 3.375 GM VIAL IVPB ONE ×3 (03:06→17:05)
[2021-02-13] MEDS: PIPERACILLIN/TAZOB 3.375 GM 3.375 GM in DEXTROSE 5%-WATER - 50 ML IVPB SCH ×3 (03:12→17:09)
[2021-02-13] MEDS: INSULIN SLIDING SCALE (NOVOLOG) 1 VIAL SQ SCH ×3 (06:25→16:25)
[2021-02-13 08:39] LABS: BASO % 0.8 % (0-2.0); EOS % 2.2 % (0-4.5); HEMATOCRIT 34.4 % (32.4-45.2); HEMOGLOBIN 11.4 GM/dL (10.7-15.3); LYMPH % 14.7 % (8-40); MCH 29.7 pg (25.7-33.7); MCHC 33.3 g/dl (32.0-36.0); MEAN CELL VOLUME 89.1 fl (80-96); MEAN PLT VOLUME 7.6 fl (7.5-11.1); MONO % 9.5 % (3.8-10.2); NEUT % 72.8 % (42.8-82.8); PLATELET COUNT 313 10^3/uL (134-434); RBC 3.86 M/mm3 (3.60-5.2); RDW 15.4 % (11.6-15.6); WHITE BLOOD COUNT 7.3 K/mm3 (4.0-10.0)
[2021-02-13] MEDS: AMINO ACIDS/PROTEIN HYDROLYS 30 ML LIQUID.PKT PO SCH ×2 (08:42→17:09)
[2021-02-13 09:06] LABS: CALCIUM 9.5 mg/dL (8.5-10.1)
[2021-02-13 09:07] LABS: BLOOD UREA NITROGEN 17.1 mg/dL (7-18); MAGNESIUM 2.1 mg/dL (1.8-2.4)
[2021-02-13 09:10] LABS: CREATININE 0.8 mg/dL (0.55-1.3); PHOSPHOROUS 3.6 mg/dL (2.5-4.9)
[2021-02-13 09:11] LABS: BILIRUBIN,TOTAL 0.4 mg/dL (0.2-1); TOT PROT 6.8 g/dl (6.4-8.2)
[2021-02-13] MEDS ORDERED: LABETALOL HCL 100 MG TABLET (FP) ONE ×2 (09:24→21:06)
[2021-02-13] MEDS: LABETALOL HCL 200 MG TABLET (FP) PO SCH ×2 (09:29→21:41)
[2021-02-13] MEDS: LOSARTAN POTASSIUM 50 MG TABLET PO SCH (09:29)
[2021-02-13] MEDS: ENOXAPARIN NA (PORCINE) 40 MG/0.4 ML DISP.SYRIN SQ SCH (09:29)
[2021-02-13] MEDS: MULTIVITAMINS (DAILY MVI) TABLET (FP) PO SCH (09:30)
[2021-02-13] MEDS: COLLAGENASE CLOSTRIDIUM HIST. 30 GRAMS TUBE TP SCH (11:01)
[2021-02-13] MEDS: CALCIUM CARBONATE 650 MG TABLET PO PRN (20:26)
[2021-02-13] MEDS: ATORVASTATIN CA 20 MG TABLET (FP) PO SCH (21:40)
[2021-02-14] MEDS ORDERED: MEROPENEM 1 GM VIAL (RESTRICTED TO ID) IVPB ONE ×3 (01:56→17:03)
[2021-02-14] MEDS ORDERED: DEXTROSE 5%-WATER 100 ML IVPB ONE ×3 (01:57→17:03)
[2021-02-14] MEDS: MEROPENEM 1 GM in DEXTROSE 5%-WATER 100 ML IVPB SCH ×3 (02:02→17:08)
[2021-02-14] MEDS: INSULIN SLIDING SCALE (NOVOLOG) 1 VIAL SQ SCH ×3 (06:04→17:07)
[2021-02-14 08:59] LABS: BASO % 0.7 % (0-2.0); EOS % 3.2 % (0-4.5); HEMATOCRIT 32.8 % (32.4-45.2); HEMOGLOBIN 11.1 GM/dL (10.7-15.3); LYMPH % 13.3 % (8-40); MCH 29.6 pg (25.7-33.7); MCHC 33.8 g/dl (32.0-36.0); MEAN CELL VOLUME 87.7 fl (80-96); MEAN PLT VOLUME 7.3 fl (7.5-11.1); MONO % 9.6 % (3.8-10.2); NEUT % 73.2 % (42.8-82.8); PLATELET COUNT 300 10^3/uL (134-434); RBC 3.74 M/mm3 (3.60-5.2); RDW 15.4 % (11.6-15.6)
[2021-02-14] MEDS: AMINO ACIDS/PROTEIN HYDROLYS 30 ML LIQUID.PKT PO SCH ×2 (09:13→17:07)
[2021-02-14 09:18] LABS: ALBUMIN 2.9 g/dl (3.4-5.0); BLOOD UREA NITROGEN 17.4 mg/dL (7-18); MAGNESIUM 2.2 mg/dL (1.8-2.4)
[2021-02-14 09:21] LABS: CREATININE 0.8 mg/dL (0.55-1.3)
[2021-02-14 09:22] LABS: PHOSPHOROUS 3.4 mg/dL (2.5-4.9)
[2021-02-14 09:23] LABS: BILIRUBIN,TOTAL 0.5 mg/dL (0.2-1); TOT PROT 6.6 g/dl (6.4-8.2)
[2021-02-14] MEDS ORDERED: LABETALOL HCL 100 MG TABLET (FP) ONE ×2 (11:02→20:43)
[2021-02-14] MEDS: LOSARTAN POTASSIUM 50 MG TABLET PO SCH (11:23)
[2021-02-14] MEDS: ENOXAPARIN NA (PORCINE) 40 MG/0.4 ML DISP.SYRIN SQ SCH (11:24)
[2021-02-14] MEDS: MULTIVITAMINS (DAILY MVI) TABLET (FP) PO SCH (11:26)
[2021-02-14] MEDS: COLLAGENASE CLOSTRIDIUM HIST. 30 GRAMS TUBE TP SCH (11:32)
[2021-02-14] MEDS: LABETALOL HCL 200 MG TABLET (FP) PO SCH ×2 (11:33→21:42)
[2021-02-14] MEDS ORDERED: INSULIN (NOVOLOG) ASPART 100 UNITS/ML 10ML VIAL ONE (11:52)
[2021-02-14] MEDS ORDERED: PT OWN MED DRAWER 7, Y5N ONE ×2 (13:08→22:48)
[2021-02-14] MEDS: CALCIUM CARBONATE 650 MG TABLET PO PRN ×2 (13:37→22:57)
[2021-02-14] MEDS: ACETAMINOPHEN 325 MG TABLET (FP) PO PRN (20:51)
[2021-02-14] MEDS: ATORVASTATIN CA 20 MG TABLET (FP) PO SCH (21:42)
[2021-02-15] MEDS ORDERED: MEROPENEM 1 GM VIAL (RESTRICTED TO ID) IVPB ONE ×3 (00:30→16:55)
[2021-02-15] MEDS ORDERED: DEXTROSE 5%-WATER 100 ML IVPB ONE ×3 (00:30→16:55)
[2021-02-15] MEDS: MEROPENEM 1 GM in DEXTROSE 5%-WATER 100 ML IVPB SCH ×3 (02:00→17:10)
[2021-02-15] MEDS: INSULIN SLIDING SCALE (NOVOLOG) 1 VIAL SQ SCH ×3 (06:34→17:10)
[2021-02-15] MEDS ORDERED: LABETALOL HCL 100 MG TABLET (FP) ONE ×3 (09:01→21:18)
[2021-02-15] MEDS: AMINO ACIDS/PROTEIN HYDROLYS 30 ML LIQUID.PKT PO SCH ×2 (09:07→17:10)
[2021-02-15] MEDS: ENOXAPARIN NA (PORCINE) 40 MG/0.4 ML DISP.SYRIN SQ SCH (09:07)
[2021-02-15] MEDS: LOSARTAN POTASSIUM 50 MG TABLET PO SCH (09:08)
[2021-02-15] MEDS: MULTIVITAMINS (DAILY MVI) TABLET (FP) PO SCH (09:08)
[2021-02-15] MEDS: LABETALOL HCL 200 MG TABLET (FP) PO SCH ×2 (09:08→21:24)
[2021-02-15 09:48] LABS: BASO % 0.9 % (0-2.0); EOS % 2.2 % (0-4.5); HEMATOCRIT 36.9 % (32.4-45.2); HEMOGLOBIN 12.7 GM/dL (10.7-15.3); LYMPH % 12.1 % (8-40); MCH 30.1 pg (25.7-33.7); MCHC 34.4 g/dl (32.0-36.0); MEAN CELL VOLUME 87.5 fl (80-96); MEAN PLT VOLUME 8.3 fl (7.5-11.1); MONO % 6.5 % (3.8-10.2); NEUT % 78.3 % (42.8-82.8); PLATELET COUNT 248 10^3/uL (134-434); RBC 4.21 M/mm3 (3.60-5.2); RDW 15.9 % (11.6-15.6)
[2021-02-15 10:11] LABS: CALCIUM 10.2 mg/dL (8.5-10.1)
[2021-02-15 10:12] LABS: ALBUMIN 3.3 g/dl (3.4-5.0); BLOOD UREA NITROGEN 17.3 mg/dL (7-18); MAGNESIUM 2.3 mg/dL (1.8-2.4)
[2021-02-15 10:14] LABS: BILIRUBIN,TOTAL 0.3 mg/dL (0.2-1); TOT PROT 7.5 g/dl (6.4-8.2)
[2021-02-15 10:15] LABS: PHOSPHOROUS 2.9 mg/dL (2.5-4.9)
[2021-02-15 10:16] LABS: CREATININE 0.8 mg/dL (0.55-1.3)
[2021-02-15] MEDS: COLLAGENASE CLOSTRIDIUM HIST. 30 GRAMS TUBE TP SCH (11:29)
[2021-02-15] MEDS: ACETAMINOPHEN 325 MG TABLET (FP) PO PRN ×2 (12:45→21:25)
[2021-02-15] MEDS ORDERED: PT OWN MED DRAWER 7, Y5N ONE ×2 (15:31→16:56)
[2021-02-15] MEDS: CALCIUM CARBONATE 650 MG TABLET PO PRN (18:49)
[2021-02-15] MEDS: ATORVASTATIN CA 20 MG TABLET (FP) PO SCH (21:24)
[2021-02-16] MEDS ORDERED: MEROPENEM 1 GM VIAL (RESTRICTED TO ID) IVPB ONE ×2 (01:01→09:19)
[2021-02-16] MEDS ORDERED: DEXTROSE 5%-WATER 100 ML IVPB ONE ×2 (01:02→09:19)
[2021-02-16] MEDS: MEROPENEM 1 GM in DEXTROSE 5%-WATER 100 ML IVPB SCH ×2 (01:20→09:21)
[2021-02-16] MEDS: INSULIN SLIDING SCALE (NOVOLOG) 1 VIAL SQ SCH ×2 (06:11→11:53)
[2021-02-16] MEDS: AMINO ACIDS/PROTEIN HYDROLYS 30 ML LIQUID.PKT PO SCH (08:59)
[2021-02-16 09:03] LABS: BASO % 0.7 % (0-2.0); EOS % 2.8 % (0-4.5); HEMATOCRIT 36.5 % (32.4-45.2); HEMOGLOBIN 12.4 GM/dL (10.7-15.3); LYMPH % 15.8 % (8-40); MCH 29.9 pg (25.7-33.7); MCHC 34.1 g/dl (32.0-36.0); MEAN CELL VOLUME 87.9 fl (80-96); MEAN PLT VOLUME 7.8 fl (7.5-11.1); NEUT % 72.7 % (42.8-82.8); PLATELET COUNT 343 10^3/uL (134-434); RBC 4.15 M/mm3 (3.60-5.2); RDW 15.8 % (11.6-15.6)
[2021-02-16] MEDS ORDERED: LABETALOL HCL 100 MG TABLET (FP) ONE (09:19)
[2021-02-16] MEDS: MULTIVITAMINS (DAILY MVI) TABLET (FP) PO SCH (09:20)
[2021-02-16] MEDS: LOSARTAN POTASSIUM 50 MG TABLET PO SCH (09:20)
[2021-02-16] MEDS: ENOXAPARIN NA (PORCINE) 40 MG/0.4 ML DISP.SYRIN SQ SCH (09:20)
[2021-02-16] MEDS: COLLAGENASE CLOSTRIDIUM HIST. 30 GRAMS TUBE TP SCH (09:20)
[2021-02-16] MEDS: LABETALOL HCL 200 MG TABLET (FP) PO SCH (09:21)
[2021-02-16 09:32] LABS: BLOOD UREA NITROGEN 19.3 mg/dL (7-18)
[2021-02-16 09:33] LABS: MAGNESIUM 2.4 mg/dL (1.8-2.4)
[2021-02-16 09:36] LABS: CREATININE 0.9 mg/dL (0.55-1.3)
[2021-02-16 14:10] VITALS: BP 161/87; PULSE 66; TEMP 98.2
== END 2021-02-16 17:47 | disposition home health service (06) | DRG 603 ==
LOC: JER 11:52 → JERBED 12:59 → J6S 18:41
PROVIDERS: ADMIT Internal Medicine; ATTEND Internal Medicine
DX: L03.116 Cellulitis of left lower limb (principal); L97.909 Non-pressure chronic ulcer of unspecified part of unspecified lower leg with unspecified severity; E11.621 Type 2 diabetes mellitus with foot ulcer; I10 Essential (primary) hypertension; M72.2 Plantar fascial fibromatosis; E78.5 Hyperlipidemia, unspecified; E88.09 Other disorders of plasma-protein metabolism, not elsewhere classified; E11.65 Type 2 diabetes mellitus with hyperglycemia; K57.90 Diverticulosis of intestine, part unspecified, without perforation or abscess without bleeding; K44.9 Diaphragmatic hernia without obstruction or gangrene; E11.51 Type 2 diabetes mellitus with diabetic peripheral angiopathy without gangrene; R06.00 Dyspnea, unspecified; B96.5 Pseudomonas (aeruginosa) (mallei) (pseudomallei) as the cause of diseases classified elsewhere
CPT/HCPCS: 11721; 36415; 71045-TC-FY; 73610-TC-LT-FY; 73630-TC-LT; 73718-TC-LT; 80048; 80053; 82962; 83605; 83735; 84100; 85025; 85027; 85651; 86140; 87040; 87070; 87186; 87205; 93005; 93010; 94010; 97116-GP; 97161-GP; 99285-25; C9803; G0463-25; U0003; U0005

== ENCOUNTER 2021-03-04 04:20 | Emergency (ER) | payer BC ==
[2021-03-04 04:35] VITALS: BMI 28.3
[2021-03-04 06:08] LABS: BASO % 0.8 % (0-2.0); EOS % 2.4 % (0-4.5); HEMATOCRIT 34.9 % (32.4-45.2); HEMOGLOBIN 11.7 GM/dL (10.7-15.3); LYMPH % 20.8 % (8-40); MCH 29.4 pg (25.7-33.7); MCHC 33.5 g/dl (32.0-36.0); MEAN CELL VOLUME 87.9 fl (80-96); MEAN PLT VOLUME 7.7 fl (7.5-11.1); MONO % 10.7 % (3.8-10.2); NEUT % 65.3 % (42.8-82.8); PLATELET COUNT 300 10^3/uL (134-434); RBC 3.97 M/mm3 (3.60-5.2); RDW 16.5 % (11.6-15.6)
[2021-03-04 06:23] LABS: CHLORIDE 108 mmol/L (98-107); SODIUM 142 mmol/L (136-145)
[2021-03-04 06:25] LABS: CALCIUM 8.9 mg/dL (8.5-10.1)
[2021-03-04 06:26] LABS: ALBUMIN 3.2 g/dl (3.4-5.0); ANION GAP 9 MMOL/L (8-16); BLOOD UREA NITROGEN 14.6 mg/dL (7-18); CO2 25 mmol/L (21-32); GLUCOSE,RANDOM 127 mg/dL (74-106)
[2021-03-04 06:29] LABS: CREATININE 0.8 mg/dL (0.55-1.3); SGOT/AST 36 U/L (15-37); SGPT/ALT 29 U/L (13-61)
[2021-03-04 06:30] LABS: BILIRUBIN,TOTAL 0.5 mg/dL (0.2-1)
[2021-03-04 06:31] LABS: TOT PROT 7.3 g/dl (6.4-8.2)
[2021-03-04 06:32] LABS: ALK PHOS 92 U/L (45-117)
[2021-03-04 06:54] VITALS: TEMP 97.3
[2021-03-04 07:21] VITALS: BP 183/85; PULSE 63
[2021-03-04 08:10] LABS: URINE APPEARANCE CLEAR; URINE BILIRUBIN NEGATIVE (NEGATIVE); URINE COLOR YELLOW; URINE GLUCOSE (UA) NEGATIVE (NEGATIVE); URINE KETONE NEGATIVE (NEGATIVE); URINE LEUK ESTERASE NEGATIVE (NEGATIVE); URINE NITRITE NEGATIVE (NEGATIVE); URINE PROTEIN NEGATIVE (NEGATIVE); URINE UROBILINOGEN 0.2 mg/dL (0.2-1.0)
== END 2021-03-04 07:21 | disposition home or self-care (01) ==
LOC: JER 04:20
DX: R00.2 Palpitations (principal)
CPT/HCPCS: 36415; 80053; 81003; 82550; 82553; 84439; 84443; 84484; 85025; 87086; 93005; 93010; 99285-25; C9803; U0003; U0005

== ENCOUNTER 2021-04-21 10:52 | Emergency (ER) | payer BC ==
[2021-04-21 11:06] VITALS: BMI 26.6
[2021-04-21] MEDS ORDERED: ACETAMINOPHEN 1000 MG/100 ML BAG IVPB ONE (13:53)
[2021-04-21] MEDS ORDERED: ACETAMINOPHEN INJECTION 100 ML IVPB ONE (14:45)
[2021-04-21 14:53] LABS: BASO % 0.2 % (0-2.0); EOS % 0.1 % (0-4.5); HEMOGLOBIN 12.2 GM/dL (10.7-15.3); LYMPH % 5.8 % (8-40); MCHC 32.2 g/dl (32.0-36.0); MEAN CELL VOLUME 86.8 fl (80-96); MEAN PLT VOLUME 7.7 fl (7.5-11.1); MONO % 8.1 % (3.8-10.2); NEUT % 85.8 % (42.8-82.8); PLATELET COUNT 254 10^3/uL (134-434); RBC 4.37 M/mm3 (3.60-5.2); RDW 16.6 % (11.6-15.6); WHITE BLOOD COUNT 11.9 K/mm3 (4.0-10.0)
[2021-04-21 15:01] LABS: INR 1.11 (0.83-1.09); PROTHROMBIN TIME (PATIENT) 12.8 SEC (9.7-13.0)
[2021-04-21 15:03] LABS: ACTIVATED PTT 28.2 SECONDS (25.2-36.5)
[2021-04-21 15:09] LABS: CHLORIDE 105 mmol/L (98-107); SODIUM 138 mmol/L (136-145)
[2021-04-21 15:14] LABS: ALBUMIN 3.2 g/dl (3.4-5.0); CALCIUM 8.5 mg/dL (8.5-10.1)
[2021-04-21 15:15] LABS: ANION GAP 9 MMOL/L (8-16); CO2 24 mmol/L (21-32); GLUCOSE,RANDOM 168 mg/dL (74-106)
[2021-04-21 15:17] LABS: CREATININE 0.8 mg/dL (0.55-1.3)
[2021-04-21 15:18] LABS: SGOT/AST 36 U/L (15-37); SGPT/ALT 46 U/L (13-61)
[2021-04-21 15:19] LABS: BILIRUBIN,TOTAL 0.3 mg/dL (0.2-1); TOT PROT 6.8 g/dl (6.4-8.2)
[2021-04-21 15:20] LABS: ALK PHOS 104 U/L (45-117)
[2021-04-21 17:15] LABS: EPI CELLS 14 /uL (0-25.1); HYALINE CASTS 2 /uL (0-3.1); PH,URINE 5.5 (5.0-8.0); URINE APPEARANCE CLEAR; URINE BACTERIA 42 /uL (0-1359); URINE BILIRUBIN NEGATIVE (NEGATIVE); URINE COLOR YELLOW; URINE GLUCOSE (UA) 1+ (NEGATIVE); URINE KETONE TRACE (NEGATIVE); URINE LEUK ESTERASE TRACE (NEGATIVE); URINE NITRITE NEGATIVE (NEGATIVE); URINE PROTEIN 1+ (NEGATIVE); URINE RBC 10 /uL (0-23.9); URINE WBC 17 /uL (0-25.8)
[2021-04-21] MEDS ORDERED: SOTROVIMAB 500 MG in SODIUM CHLORIDE 100 ML IVPB ONE (18:54)
[2021-04-21] MEDS ORDERED: MAG HYDROX/AL HYDROX/SIMETH 30 ML UNIT-DOSE CUP PO ONE (19:24)
[2021-04-21] MEDS ORDERED: MAG HYDROX/AL HYDROX/SIMETH 30 ML UNIT-DOSE CUP ONE (19:26)
[2021-04-21 21:22] VITALS: TEMP 99.5
[2021-04-21 22:43] VITALS: BP 155/72; PULSE 88
== END 2021-04-21 21:35 | disposition home or self-care (01) ==
LOC: JER 10:52
PROC: 3E0333Z Introduction of Anti-inflammatory into Peripheral Vein, Percutaneous Approach (ICD-10-PCS; principal; 2021-04-21)
PROC: 3E03329 Introduction of Other Anti-infective into Peripheral Vein, Percutaneous Approach (ICD-10-PCS; 2021-04-21)
DX: U07.1 COVID-19 (principal); R10.9 Unspecified abdominal pain
CPT/HCPCS: 36415; 71045-TC-FY; 80053; 81003; 83605; 84484; 85025; 85610; 85730; 87040; 87086; 87186; 93005; 93010; 99285-25; C9803; J0131; M0247; Q0247; U0003; U0005

== ENCOUNTER 2021-05-17 12:17 | Observation (INO) | payer BC ==
[2021-05-17 15:43] LABS: BASO % 0.8 % (0-2.0); EOS % 1.5 % (0-4.5); HEMOGLOBIN 11.2 GM/dL (10.7-15.3); LYMPH % 16.7 % (8-40); MCH 28.5 pg (25.7-33.7); MCHC 33.1 g/dl (32.0-36.0); MEAN CELL VOLUME 86.3 fl (80-96); MEAN PLT VOLUME 7.8 fl (7.5-11.1); MONO % 8.7 % (3.8-10.2); NEUT % 72.3 % (42.8-82.8); PLATELET COUNT 337 10^3/uL (134-434); RBC 3.93 M/mm3 (3.60-5.2); RDW 16.4 % (11.6-15.6); WHITE BLOOD COUNT 8.6 K/mm3 (4.0-10.0)
[2021-05-17 16:02] LABS: CALCIUM 9.1 mg/dL (8.5-10.1)
[2021-05-17 16:03] LABS: ALBUMIN 3.2 g/dl (3.4-5.0); BLOOD UREA NITROGEN 17.9 mg/dL (7-18)
[2021-05-17 16:06] LABS: CREATININE 0.8 mg/dL (0.55-1.3)
[2021-05-17 16:08] LABS: BILIRUBIN,TOTAL 0.5 mg/dL (0.2-1)
[2021-05-17 16:19] LABS: EPI CELLS 13 /uL (0-25.1); HYALINE CASTS 5 /uL (0-3.1); URINE APPEARANCE CLEAR; URINE BACTERIA 14 /uL (0-1359); URINE BILIRUBIN NEGATIVE (NEGATIVE); URINE COLOR YELLOW; URINE GLUCOSE (UA) NEGATIVE (NEGATIVE); URINE KETONE TRACE (NEGATIVE); URINE LEUK ESTERASE 1+ (NEGATIVE); URINE NITRITE NEGATIVE (NEGATIVE); URINE PROTEIN TRACE (NEGATIVE); URINE RBC 4 /uL (0-23.9); URINE UROBILINOGEN 0.2 mg/dL (0.2-1.0); URINE WBC 23 /uL (0-25.8)
[2021-05-17 17:01] LABS: INR 1.03 (0.83-1.09); PROTHROMBIN TIME (PATIENT) 11.8 SEC (9.7-13.0)
[2021-05-17] MEDS: INSULIN SLIDING SCALE (NOVOLOG) 1 VIAL SQ SCH (23:04)
[2021-05-18] MEDS: INSULIN SLIDING SCALE (NOVOLOG) 1 VIAL SQ SCH ×4 (08:01→22:29)
[2021-05-18 08:21] LABS: HEMATOCRIT 34.4 % (32.4-45.2); HEMOGLOBIN 11.3 GM/dL (10.7-15.3); MCH 28.5 pg (25.7-33.7); MCHC 32.9 g/dl (32.0-36.0); MEAN CELL VOLUME 86.6 fl (80-96); MEAN PLT VOLUME 7.7 fl (7.5-11.1); PLATELET COUNT 325 10^3/uL (134-434); RBC 3.97 M/mm3 (3.60-5.2); RDW 17.2 % (11.6-15.6); WHITE BLOOD COUNT 7.5 K/mm3 (4.0-10.0)
[2021-05-18 08:26] LABS: CALCIUM 9.4 mg/dL (8.5-10.1)
[2021-05-18 08:27] LABS: BLOOD UREA NITROGEN 16.4 mg/dL (7-18); MAGNESIUM 1.8 mg/dL (1.8-2.4)
[2021-05-18 08:30] LABS: CREATININE 0.7 mg/dL (0.55-1.3); PHOSPHOROUS 3.8 mg/dL (2.5-4.9)
[2021-05-18] MEDS ORDERED: ENOXAPARIN NA (PORCINE) 40 MG/0.4 ML DISP.SYRIN SQ ONE (09:47)
[2021-05-18] MEDS: ENOXAPARIN NA (PORCINE) 40 MG/0.4 ML DISP.SYRIN SQ SCH (09:53)
[2021-05-18] MEDS ORDERED: PATIENT'S OWN MEDICATION (NON-FORMULARY) (Escitalopram Oxalate [Lexapro -] 5 MG Tablet) PO SCH (14:00)
[2021-05-18] MEDS ORDERED: PATIENT'S OWN MEDICATION (NON-FORMULARY) (Losartan Potassium [Cozaar] 100 MG Tablet) PO SCH (14:00)
[2021-05-18] MEDS ORDERED: ESCITALOPRAM OXALATE 10 MG TABLET ONE (14:04)
[2021-05-18] MEDS ORDERED: LOSARTAN POTASSIUM 50 MG TABLET ONE (14:04)
[2021-05-18] MEDS: LOSARTAN POTASSIUM 50 MG TABLET PO SCH (14:14)
[2021-05-18] MEDS: ESCITALOPRAM OXALATE 10 MG TABLET PO SCH (14:14)
[2021-05-18] MEDS ORDERED: MAGNESIUM OXIDE 400 MG TABLET (FP) PO ONE (14:22)
[2021-05-18] MEDS ORDERED: MAGNESIUM OXIDE 400 MG TABLET (FP) ONE (14:30)
[2021-05-18 16:08] VITALS: BMI 23.9
[2021-05-18] MEDS ORDERED: LOSARTAN POTASSIUM 50 MG TABLET PO ONE (16:52)
[2021-05-18] MEDS ORDERED: amLODIPine BESYLATE 10 MG TABLET (FP) PO ONE (17:04)
[2021-05-18] MEDS ORDERED: INSULIN (NOVOLOG) ASPART 100 UNITS/ML 10ML VIAL ONE (17:21)
[2021-05-18] MEDS: MAG HYDROX/AL HYDROX/SIMETH 30 ML UNIT-DOSE CUP PO PRN (19:08)
[2021-05-18] MEDS: LABETALOL HCL 200 MG TABLET (FP) PO SCH (22:24)
[2021-05-19] MEDS: INSULIN SLIDING SCALE (NOVOLOG) 1 VIAL SQ SCH ×4 (06:24→21:39)
[2021-05-19 09:52] LABS: BASO % 0.8 % (0-2.0); EOS % 1.4 % (0-4.5); HEMATOCRIT 35.6 % (32.4-45.2); HEMOGLOBIN 11.3 GM/dL (10.7-15.3); LYMPH % 13.6 % (8-40); MCH 27.4 pg (25.7-33.7); MCHC 31.6 g/dl (32.0-36.0); MEAN CELL VOLUME 86.7 fl (80-96); MEAN PLT VOLUME 8.1 fl (7.5-11.1); MONO % 9.7 % (3.8-10.2); NEUT % 74.5 % (42.8-82.8); PLATELET COUNT 306 10^3/uL (134-434); RBC 4.11 M/mm3 (3.60-5.2); RDW 16.8 % (11.6-15.6); WHITE BLOOD COUNT 7.7 K/mm3 (4.0-10.0)
[2021-05-19 10:36] LABS: CHLORIDE 104 mmol/L (98-107); SODIUM 140 mmol/L (136-145)
[2021-05-19 10:46] LABS: CALCIUM 9.2 mg/dL (8.5-10.1)
[2021-05-19 10:47] LABS: ALBUMIN 3.2 g/dl (3.4-5.0); ANION GAP 6 MMOL/L (8-16); CO2 31 mmol/L (21-32); GLUCOSE,RANDOM 162 mg/dL (74-106); MAGNESIUM 2.1 mg/dL (1.8-2.4)
[2021-05-19 10:49] LABS: SGPT/ALT 31 U/L (13-61)
[2021-05-19 10:50] LABS: CREATININE 0.7 mg/dL (0.55-1.3); SGOT/AST 23 U/L (15-37)
[2021-05-19 10:51] LABS: BILIRUBIN,TOTAL 0.4 mg/dL (0.2-1); TOT PROT 6.9 g/dl (6.4-8.2)
[2021-05-19] MEDS: MAG HYDROX/AL HYDROX/SIMETH 30 ML UNIT-DOSE CUP PO PRN ×2 (10:51→16:27)
[2021-05-19] MEDS: ENOXAPARIN NA (PORCINE) 40 MG/0.4 ML DISP.SYRIN SQ SCH (10:51)
[2021-05-19 10:52] LABS: ALK PHOS 101 U/L (45-117)
[2021-05-19] MEDS: LABETALOL HCL 200 MG TABLET (FP) PO SCH ×2 (10:52→21:35)
[2021-05-19] MEDS: ESCITALOPRAM OXALATE 10 MG TABLET PO SCH (10:52)
[2021-05-19] MEDS: PANTOPRAZOLE 40 MG TABLET PO SCH (10:52)
[2021-05-19] MEDS: LOSARTAN POTASSIUM 50 MG TABLET PO SCH (10:52)
[2021-05-19] MEDS: amLODIPine BESYLATE 10 MG TABLET (FP) PO SCH (10:52)
[2021-05-19] MEDS ORDERED: INSULIN (NOVOLOG) ASPART 100 UNITS/ML 10ML VIAL ONE (12:26)
[2021-05-20] MEDS: INSULIN SLIDING SCALE (NOVOLOG) 1 VIAL SQ SCH ×4 (06:03→21:52)
[2021-05-20 09:56] LABS: EOS % 3.1 % (0-4.5); HEMATOCRIT 32.9 % (32.4-45.2); HEMOGLOBIN 10.4 GM/dL (10.7-15.3); LYMPH % 15.7 % (8-40); MCH 27.5 pg (25.7-33.7); MCHC 31.5 g/dl (32.0-36.0); MEAN CELL VOLUME 87.1 fl (80-96); MEAN PLT VOLUME 7.7 fl (7.5-11.1); MONO % 10.5 % (3.8-10.2); NEUT % 69.7 % (42.8-82.8); PLATELET COUNT 276 10^3/uL (134-434); RBC 3.78 M/mm3 (3.60-5.2)
[2021-05-20 10:15] LABS: CHLORIDE 106 mmol/L (98-107); SODIUM 139 mmol/L (136-145)
[2021-05-20 10:21] LABS: CALCIUM 8.8 mg/dL (8.5-10.1)
[2021-05-20 10:22] LABS: ALBUMIN 2.9 g/dl (3.4-5.0); ANION GAP 4 MMOL/L (8-16); BLOOD UREA NITROGEN 12.5 mg/dL (7-18); CO2 29 mmol/L (21-32); GLUCOSE,RANDOM 169 mg/dL (74-106); MAGNESIUM 2.1 mg/dL (1.8-2.4)
[2021-05-20 10:23] LABS: SGOT/AST 18 U/L (15-37); SGPT/ALT 26 U/L (13-61)
[2021-05-20 10:24] LABS: BILIRUBIN,TOTAL 0.4 mg/dL (0.2-1)
[2021-05-20 10:25] LABS: TOT PROT 6.3 g/dl (6.4-8.2)
[2021-05-20 10:26] LABS: ALK PHOS 84 U/L (45-117); CREATININE 0.8 mg/dL (0.55-1.3)
[2021-05-20] MEDS: ENOXAPARIN NA (PORCINE) 40 MG/0.4 ML DISP.SYRIN SQ SCH (10:39)
[2021-05-20] MEDS: ESCITALOPRAM OXALATE 10 MG TABLET PO SCH (10:40)
[2021-05-20] MEDS: PANTOPRAZOLE 40 MG TABLET PO SCH (10:40)
[2021-05-20] MEDS: LABETALOL HCL 200 MG TABLET (FP) PO SCH ×2 (10:40→21:47)
[2021-05-20] MEDS: amLODIPine BESYLATE 10 MG TABLET (FP) PO SCH (10:40)
[2021-05-20] MEDS: LOSARTAN POTASSIUM 50 MG TABLET PO SCH (10:40)
[2021-05-20] MEDS: MAG HYDROX/AL HYDROX/SIMETH 30 ML UNIT-DOSE CUP PO PRN (10:52)
[2021-05-20] MEDS ORDERED: INSULIN (NOVOLOG) ASPART 100 UNITS/ML 10ML VIAL ONE (18:30)
[2021-05-21] MEDS: INSULIN SLIDING SCALE (NOVOLOG) 1 VIAL SQ SCH ×4 (06:03→22:43)
[2021-05-21 09:04] LABS: EOS % 3.4 % (0-4.5); HEMATOCRIT 31.1 % (32.4-45.2); LYMPH % 20.2 % (8-40); MCHC 32.3 g/dl (32.0-36.0); MEAN CELL VOLUME 86.8 fl (80-96); MEAN PLT VOLUME 7.7 fl (7.5-11.1); MONO % 11.4 % (3.8-10.2); PLATELET COUNT 269 10^3/uL (134-434); RBC 3.59 M/mm3 (3.60-5.2); RDW 16.4 % (11.6-15.6); WHITE BLOOD COUNT 6.2 K/mm3 (4.0-10.0)
[2021-05-21 09:23] LABS: CHLORIDE 107 mmol/L (98-107); SODIUM 141 mmol/L (136-145)
[2021-05-21 09:26] LABS: CALCIUM 8.7 mg/dL (8.5-10.1)
[2021-05-21 09:27] LABS: ALBUMIN 2.8 g/dl (3.4-5.0); ANION GAP 5 MMOL/L (8-16); BLOOD UREA NITROGEN 13.9 mg/dL (7-18); CO2 29 mmol/L (21-32); GLUCOSE,RANDOM 131 mg/dL (74-106)
[2021-05-21 09:30] LABS: CREATININE 0.8 mg/dL (0.55-1.3); SGOT/AST 19 U/L (15-37); SGPT/ALT 26 U/L (13-61)
[2021-05-21 09:32] LABS: BILIRUBIN,TOTAL 0.6 mg/dL (0.2-1); TOT PROT 6.1 g/dl (6.4-8.2)
[2021-05-21 09:33] LABS: ALK PHOS 83 U/L (45-117)
[2021-05-21] MEDS: ESCITALOPRAM OXALATE 10 MG TABLET PO SCH (10:02)
[2021-05-21] MEDS: amLODIPine BESYLATE 10 MG TABLET (FP) PO SCH (10:02)
[2021-05-21] MEDS: LABETALOL HCL 200 MG TABLET (FP) PO SCH ×2 (10:03→22:05)
[2021-05-21] MEDS: LOSARTAN POTASSIUM 50 MG TABLET PO SCH (10:03)
[2021-05-21] MEDS: ENOXAPARIN NA (PORCINE) 40 MG/0.4 ML DISP.SYRIN SQ SCH (10:03)
[2021-05-21] MEDS: PANTOPRAZOLE 40 MG TABLET PO SCH (10:03)
[2021-05-22] MEDS: INSULIN SLIDING SCALE (NOVOLOG) 1 VIAL SQ SCH ×2 (06:53→11:21)
[2021-05-22 09:17] LABS: BASO % 1.2 % (0-2.0); EOS % 3.3 % (0-4.5); HEMATOCRIT 33.8 % (32.4-45.2); HEMOGLOBIN 11.1 GM/dL (10.7-15.3); LYMPH % 16.6 % (8-40); MCH 28.4 pg (25.7-33.7); MCHC 32.9 g/dl (32.0-36.0); MEAN CELL VOLUME 86.4 fl (80-96); MEAN PLT VOLUME 7.5 fl (7.5-11.1); MONO % 9.5 % (3.8-10.2); NEUT % 69.4 % (42.8-82.8); PLATELET COUNT 284 10^3/uL (134-434); RBC 3.91 M/mm3 (3.60-5.2); RDW 17.1 % (11.6-15.6); WHITE BLOOD COUNT 6.4 K/mm3 (4.0-10.0)
[2021-05-22 09:51] LABS: CHLORIDE 107 mmol/L (98-107); SODIUM 142 mmol/L (136-145)
[2021-05-22 09:57] LABS: ALBUMIN 3.3 g/dl (3.4-5.0); ANION GAP 5 MMOL/L (8-16); CALCIUM 9.1 mg/dL (8.5-10.1); CO2 31 mmol/L (21-32); GLUCOSE,RANDOM 129 mg/dL (74-106)
[2021-05-22 09:58] LABS: MAGNESIUM 1.9 mg/dL (1.8-2.4)
[2021-05-22 10:00] LABS: BLOOD UREA NITROGEN 11.9 mg/dL (7-18); CREATININE 0.8 mg/dL (0.55-1.3); SGPT/ALT 30 U/L (13-61)
[2021-05-22 10:02] LABS: TOT PROT 6.9 g/dl (6.4-8.2)
[2021-05-22 10:03] LABS: ALK PHOS 92 U/L (45-117); SGOT/AST 20 U/L (15-37)
[2021-05-22 10:06] LABS: BILIRUBIN,TOTAL 0.4 mg/dL (0.2-1)
[2021-05-22] MEDS: ESCITALOPRAM OXALATE 10 MG TABLET PO SCH (10:32)
[2021-05-22] MEDS: ENOXAPARIN NA (PORCINE) 40 MG/0.4 ML DISP.SYRIN SQ SCH (10:33)
[2021-05-22] MEDS: PANTOPRAZOLE 40 MG TABLET PO SCH (10:33)
[2021-05-22] MEDS: amLODIPine BESYLATE 10 MG TABLET (FP) PO SCH (10:33)
[2021-05-22] MEDS: LABETALOL HCL 200 MG TABLET (FP) PO SCH (10:33)
[2021-05-22] MEDS: LOSARTAN POTASSIUM 50 MG TABLET PO SCH (10:33)
[2021-05-22 13:11] LABS: SARS-CoV-2 NAA Not Detected (Not Detected)
[2021-05-22 13:54] VITALS: BP 124/72; PULSE 63; TEMP 97.7
== END 2021-05-22 15:25 ==
LOC: JER 12:17 → JERBED 16:50 → J8W 05-18 15:42
PROVIDERS: ADMIT Internal Medicine; ATTEND Nurse Practitioner Family
PROC: 3E023GC Introduction of Other Therapeutic Substance into Muscle, Percutaneous Approach (ICD-10-PCS; principal; 2021-05-17)
DX: U07.1 COVID-19 (principal); I10 Essential (primary) hypertension; E11.9 Type 2 diabetes mellitus without complications; E78.5 Hyperlipidemia, unspecified; L08.9 Local infection of the skin and subcutaneous tissue, unspecified; R29.6 Repeated falls; J18.9 Pneumonia, unspecified organism; K44.9 Diaphragmatic hernia without obstruction or gangrene; M19.90 Unspecified osteoarthritis, unspecified site; R53.81 Other malaise; K57.90 Diverticulosis of intestine, part unspecified, without perforation or abscess without bleeding; K21.9 Gastro-esophageal reflux disease without esophagitis; W18.39XA Other fall on same level, initial encounter; Y93.89 Activity, other specified; Y92.89 Other specified places as the place of occurrence of the external cause
CPT/HCPCS: 36415; 70450-TC; 71045-TC-FY; 72125-TC; 72170-TC-FY; 73502-TC-RT-FY; 73552-TC-RT-FY; 80048; 80053; 81003; 82962; 83735; 84100; 84484; 85025; 85027; 85379; 85610; 86140; 86769; 87086; 93005; 93010; 94010; 96372; 97116-GP; 97162-GP; 99285-25; C9803; G0378; G0463-25; U0003; U0005

== ENCOUNTER 2021-09-29 12:29 | Emergency (ER) | payer BC ==
[2021-09-29 12:41] VITALS: TEMP 98.4; BMI 31.0
[2021-09-29] MEDS ORDERED: SODIUM CHLORIDE 1,000 ML IV SCH (14:30)
[2021-09-29 15:32] LABS: BASO % 0.8 % (0-2.0); EOS % 0.8 % (0-4.5); HEMATOCRIT 37.3 % (32.4-45.2); LYMPH % 16.3 % (8-40); MCH 26.4 pg (25.7-33.7); MCHC 32.3 g/dl (32.0-36.0); MEAN CELL VOLUME 81.7 fl (80-96); MEAN PLT VOLUME 8.3 fl (7.5-11.1); MONO % 9.1 % (3.8-10.2); PLATELET COUNT 285 10^3/uL (134-434); RBC 4.56 M/mm3 (3.60-5.2); RDW 18.7 % (11.6-15.6); WHITE BLOOD COUNT 8.6 K/mm3 (4.0-10.0)
[2021-09-29 15:43] LABS: INR 0.99 (0.83-1.09); PROTHROMBIN TIME (PATIENT) 11.4 SEC (9.7-13.0)
[2021-09-29 15:45] LABS: EPI CELLS 9 /uL (0-25.1); HYALINE CASTS 0 /uL (0-3.1); URINE APPEARANCE CLEAR; URINE BACTERIA 135 /uL (0-1359); URINE BILIRUBIN NEGATIVE (NEGATIVE); URINE COLOR YELLOW; URINE GLUCOSE (UA) NEGATIVE (NEGATIVE); URINE KETONE NEGATIVE (NEGATIVE); URINE LEUK ESTERASE TRACE (NEGATIVE); URINE NITRITE NEGATIVE (NEGATIVE); URINE PROTEIN NEGATIVE (NEGATIVE); URINE UROBILINOGEN 0.2 mg/dL (0.2-1.0); URINE WBC 48 /uL (0-25.8)
[2021-09-29 15:45] LABS: ACTIVATED PTT 34.6 SECONDS (25.2-36.5)
[2021-09-29 15:54] LABS: ALBUMIN 3.8 g/dl (3.4-5.0); CALCIUM 9.5 mg/dL (8.5-10.1)
[2021-09-29 15:58] LABS: CREATININE 0.7 mg/dL (0.55-1.3)
[2021-09-29 15:59] LABS: TOT PROT 7.9 g/dl (6.4-8.2)
[2021-09-29 16:01] LABS: BILIRUBIN,TOTAL 0.5 mg/dL (0.2-1)
[2021-09-29] MEDS ORDERED: MIDAZOLAM HCL 2 MG/2 ML SINGLE DOSE VIAL IVPUSH ONE (16:17)
[2021-09-29] MEDS ORDERED: MIDAZOLAM HCL 2 MG/2 ML SINGLE DOSE VIAL ONE ×2 (16:19→16:26)
[2021-09-29] MEDS ORDERED: MIDAZOLAM HCL 2 MG/2 ML SINGLE DOSE VIAL IM ONE (16:49)
[2021-09-29 17:49] VITALS: BP 164/83; PULSE 74
== END 2021-09-29 18:55 | disposition home or self-care (01) ==
LOC: JER 12:29
PROC: 3E023GC Introduction of Other Therapeutic Substance into Muscle, Percutaneous Approach (ICD-10-PCS; principal; 2021-09-29)
DX: R20.2 Paresthesia of skin (principal)
CPT/HCPCS: 36415; 70450-TC; 70551-TC; 71045-TC-FY; 80053; 80061; 81003; 82550; 83036; 84484; 85025; 85610; 85730; 86850; 86900; 86901; 93005; 93010; 99285-25; C9803-CS; U0003; U0005

== ENCOUNTER 2021-10-15 17:12 | Emergency (ER) | payer BC ==
[2021-10-15 17:18] VITALS: TEMP 97; BMI 31.0
[2021-10-15 19:48] LABS: BASO % 0.9 % (0-2.0); EOS % 1.3 % (0-4.5); HEMATOCRIT 34.6 % (32.4-45.2); HEMOGLOBIN 11.3 GM/dL (10.7-15.3); LYMPH % 18.3 % (8-40); MCH 26.7 pg (25.7-33.7); MCHC 32.7 g/dl (32.0-36.0); MEAN CELL VOLUME 81.6 fl (80-96); MONO % 11.2 % (3.8-10.2); NEUT % 68.3 % (42.8-82.8); PLATELET COUNT 357 10^3/uL (134-434); RBC 4.24 M/mm3 (3.60-5.2); RDW 19.1 % (11.6-15.6); WHITE BLOOD COUNT 9.6 K/mm3 (4.0-10.0)
[2021-10-15 20:16] LABS: CALCIUM 9.1 mg/dL (8.5-10.1)
[2021-10-15 20:17] LABS: ALBUMIN 3.6 g/dl (3.4-5.0); BLOOD UREA NITROGEN 16.1 mg/dL (7-18)
[2021-10-15 20:20] LABS: CREATININE 0.9 mg/dL (0.55-1.3)
[2021-10-15 20:21] LABS: BILIRUBIN,TOTAL 0.3 mg/dL (0.2-1); TOT PROT 7.3 g/dl (6.4-8.2)
[2021-10-15 21:15] LABS: EPI CELLS 7 /uL (0-25.1); HYALINE CASTS 0 /uL (0-3.1); URINE APPEARANCE CLEAR; URINE BACTERIA 51 /uL (0-1359); URINE BILIRUBIN NEGATIVE (NEGATIVE); URINE COLOR YELLOW; URINE GLUCOSE (UA) NEGATIVE (NEGATIVE); URINE KETONE NEGATIVE (NEGATIVE); URINE LEUK ESTERASE 1+ (NEGATIVE); URINE NITRITE NEGATIVE (NEGATIVE); URINE PROTEIN NEGATIVE (NEGATIVE); URINE RBC 5 /uL (0-23.9); URINE UROBILINOGEN 0.2 mg/dL (0.2-1.0); URINE WBC 82 /uL (0-25.8)
[2021-10-15] MEDS ORDERED: CEPHALEXIN MONOHYDRATE 500 MG CAPSULE (UD) PO STA (21:32)
[2021-10-15] MEDS ORDERED: CEPHALEXIN MONOHYDRATE 500 MG CAPSULE (UD) ONE (21:41)
[2021-10-15 21:48] VITALS: BP 177/82; PULSE 74
== END 2021-10-15 22:00 | disposition home or self-care (01) ==
LOC: JER 17:12
DX: N39.0 Urinary tract infection, site not specified (principal); R53.0 Neoplastic (malignant) related fatigue
CPT/HCPCS: 36415; 80053; 81003; 82962; 85025; 87086; 93005; 93010; 99284-25

== ENCOUNTER 2021-12-15 18:32 | Emergency (ER) | payer BC ==
[2021-12-15 18:44] VITALS: RESP 18; TEMP 98.4; BMI 26.4
[2021-12-15 20:39] LABS: EOS % 1.4 % (0-4.5); HEMOGLOBIN 12.4 GM/dL (10.7-15.3); LYMPH % 17.2 % (8-40); MCH 27.2 pg (25.7-33.7); MCHC 32.7 g/dl (32.0-36.0); MEAN CELL VOLUME 83.2 fl (80-96); MEAN PLT VOLUME 6.9 fl (7.5-11.1); MONO % 10.8 % (3.8-10.2); NEUT % 69.6 % (42.8-82.8); PLATELET COUNT 359 10^3/uL (134-434); RBC 4.57 M/mm3 (3.60-5.2); RDW 17.4 % (11.6-15.6); WHITE BLOOD COUNT 7.3 K/mm3 (4.0-10.0)
[2021-12-15 20:57] VITALS: PULSE 75
[2021-12-15 21:02] LABS: ALBUMIN 3.7 g/dl (3.4-5.0); BLOOD UREA NITROGEN 14.4 mg/dL (7-18); CALCIUM 9.4 mg/dL (8.5-10.1)
[2021-12-15 21:05] LABS: CREATININE 0.8 mg/dL (0.55-1.3)
[2021-12-15 21:07] LABS: BILIRUBIN,TOTAL 0.3 mg/dL (0.2-1); TOT PROT 7.7 g/dl (6.4-8.2)
[2021-12-15] MEDS ORDERED: LABETALOL HCL 5 MG/1 ML (100MG/20 ML VIAL) IVPUSH ONE (21:08)
[2021-12-15] MEDS ORDERED: LABETALOL HCL 5 MG/1 ML (100MG/20 ML VIAL) ONE (21:24)
[2021-12-15 22:31] VITALS: BP 174/84
== END 2021-12-15 23:24 | disposition home or self-care (01) ==
LOC: JER 18:32
PROC: 3E033GC Introduction of Other Therapeutic Substance into Peripheral Vein, Percutaneous Approach (ICD-10-PCS; principal; 2021-12-15)
DX: R10.9 Unspecified abdominal pain (principal); I10 Essential (primary) hypertension
CPT/HCPCS: 36415; 80053; 83605; 83690; 85025; 93005; 93010; 99284-25

== ENCOUNTER 2022-01-16 21:38 | Inpatient (IN) | payer BC ==
[2022-01-16 22:00] VITALS: BMI 28.3
[2022-01-16 22:57] LABS: BASO % 0.4 % (0-2.0); EOS % 0.7 % (0-4.5); HEMATOCRIT 36.2 % (32.4-45.2); HEMOGLOBIN 11.8 GM/dL (10.7-15.3); MCHC 32.5 g/dl (32.0-36.0); MEAN CELL VOLUME 83.1 fl (80-96); MEAN PLT VOLUME 7.4 fl (7.5-11.1); MONO % 9.8 % (3.8-10.2); NEUT % 84.1 % (42.8-82.8); PLATELET COUNT 305 10^3/uL (134-434); RBC 4.35 M/mm3 (3.60-5.2); RDW 18.4 % (11.6-15.6); WHITE BLOOD COUNT 15.9 K/mm3 (4.0-10.0)
[2022-01-16 23:16] LABS: CHLORIDE 106 mmol/L (98-107); SODIUM 133 mmol/L (136-145)
[2022-01-16 23:19] LABS: ALBUMIN 2.9 g/dl (3.4-5.0); BLOOD UREA NITROGEN 18.2 mg/dL (7-18); CO2 27 mmol/L (21-32); GLUCOSE,RANDOM 176 mg/dL (74-106)
[2022-01-16 23:21] LABS: CREATININE 0.8 mg/dL (0.55-1.3); EPI CELLS 3 /uL (0-25.1); HYALINE CASTS 2 /uL (0-3.1); PH,URINE 6.5 (5.0-8.0); SGOT/AST 66 U/L (15-37); URINE APPEARANCE CLOUDY; URINE BACTERIA >9,000 /uL (0-1359); URINE BILIRUBIN 1+ (NEGATIVE); URINE COLOR DK YELLOW; URINE GLUCOSE (UA) NEGATIVE (NEGATIVE); URINE KETONE TRACE (NEGATIVE); URINE LEUK ESTERASE 3+ (NEGATIVE); URINE NITRITE POSITIVE (NEGATIVE); URINE PROTEIN 1+ (NEGATIVE); URINE RBC 18 /uL (0-23.9); URINE WBC 422 /uL (0-25.8)
[2022-01-16 23:23] LABS: BILIRUBIN,TOTAL 0.4 mg/dL (0.2-1)
[2022-01-16 23:25] LABS: ALK PHOS 108 U/L (45-117)
[2022-01-16 23:26] LABS: ANION GAP 0 MMOL/L (8-16); SGPT/ALT 24 U/L (13-61)
[2022-01-17] MEDS ORDERED: CEFTRIAXONE 1,000 MG in DEXTROSE 5%-WATER - 50 ML IVPB ONE (00:07)
[2022-01-17] MEDS ORDERED: CEFTRIAXONE 1 GM/50 ML BAG ONE (00:12)
[2022-01-17 00:22] LABS: ALBUMIN 3.2 g/dl (3.4-5.0); BLOOD UREA NITROGEN 18.4 mg/dL (7-18); CALCIUM 8.8 mg/dL (8.5-10.1)
[2022-01-17 00:26] LABS: CREATININE 0.8 mg/dL (0.55-1.3)
[2022-01-17 00:27] LABS: BILIRUBIN,TOTAL 0.3 mg/dL (0.2-1); TOT PROT 6.9 g/dl (6.4-8.2)
[2022-01-17] MEDS: LACTATED RINGERS SOLUTION 1,000 ML IV SCH (05:30)
[2022-01-17] MEDS ORDERED: MEROPENEM 1 GM VIAL (RESTRICTED TO ID) IVPB ONE ×2 (05:40→11:18)
[2022-01-17] MEDS: MEROPENEM 1 GM in DEXTROSE 5%-WATER 100 ML IVPB SCH ×3 (05:42→18:49)
[2022-01-17] MEDS: INSULIN SLIDING SCALE (NOVOLOG) 1 VIAL SQ SCH ×4 (06:11→22:16)
[2022-01-17 06:14] LABS: BASO % 0.6 % (0-2.0); EOS % 0.9 % (0-4.5); HEMATOCRIT 35.4 % (32.4-45.2); HEMOGLOBIN 11.1 GM/dL (10.7-15.3); LYMPH % 10.9 % (8-40); MCH 26.2 pg (25.7-33.7); MCHC 31.4 g/dl (32.0-36.0); MEAN CELL VOLUME 83.3 fl (80-96); MEAN PLT VOLUME 7.3 fl (7.5-11.1); MONO % 10.2 % (3.8-10.2); NEUT % 77.4 % (42.8-82.8); PLATELET COUNT 342 10^3/uL (134-434); RBC 4.25 M/mm3 (3.60-5.2); WHITE BLOOD COUNT 11.6 K/mm3 (4.0-10.0)
[2022-01-17 06:33] LABS: ALBUMIN 3.1 g/dl (3.4-5.0); CALCIUM 9.1 mg/dL (8.5-10.1)
[2022-01-17 06:35] LABS: BLOOD UREA NITROGEN 15.8 mg/dL (7-18); MAGNESIUM 1.9 mg/dL (1.8-2.4)
[2022-01-17 06:36] LABS: PHOSPHOROUS 3.5 mg/dL (2.5-4.9)
[2022-01-17 06:38] LABS: BILIRUBIN,TOTAL 0.3 mg/dL (0.2-1); CREATININE 0.7 mg/dL (0.55-1.3); TOT PROT 6.6 g/dl (6.4-8.2)
[2022-01-17] MEDS ORDERED: PANTOPRAZOLE 40 MG TABLET PO ONE (09:18)
[2022-01-17] MEDS ORDERED: ENOXAPARIN NA (PORCINE) 40 MG/0.4 ML DISP.SYRIN SQ ONE (09:19)
[2022-01-17] MEDS: PANTOPRAZOLE 40 MG TABLET PO SCH (09:25)
[2022-01-17] MEDS: VERAPAMIL HCL 240 MG E.R. TABLET PO SCH (09:25)
[2022-01-17] MEDS: ENOXAPARIN NA (PORCINE) 40 MG/0.4 ML DISP.SYRIN SQ SCH (09:38)
[2022-01-17] MEDS ORDERED: amLODIPine BESYLATE 5 MG TABLET (FP) ONE (17:52)
[2022-01-17] MEDS: amLODIPine BESYLATE 5 MG TABLET (FP) PO SCH (18:05)
[2022-01-18] MEDS: INSULIN SLIDING SCALE (NOVOLOG) 1 VIAL SQ SCH ×4 (06:09→21:38)
[2022-01-18] MEDS: LACTATED RINGERS SOLUTION 1,000 ML IV SCH (06:29)
[2022-01-18] MEDS: TAMSULOSIN HCL 0.4 MG CAP PO SCH (08:43)
[2022-01-18 09:20] LABS: BASO % 0.7 % (0-2.0); EOS % 2.2 % (0-4.5); HEMATOCRIT 36.8 % (32.4-45.2); HEMOGLOBIN 12.1 GM/dL (10.7-15.3); MCH 27.5 pg (25.7-33.7); MEAN CELL VOLUME 83.3 fl (80-96); MEAN PLT VOLUME 7.4 fl (7.5-11.1); MONO % 8.5 % (3.8-10.2); NEUT % 72.6 % (42.8-82.8); PLATELET COUNT 325 10^3/uL (134-434); RBC 4.42 M/mm3 (3.60-5.2); RDW 17.9 % (11.6-15.6); WHITE BLOOD COUNT 7.8 K/mm3 (4.0-10.0)
[2022-01-18 09:55] LABS: ALBUMIN 3.2 g/dl (3.4-5.0); BLOOD UREA NITROGEN 16.9 mg/dL (7-18); CALCIUM 9.3 mg/dL (8.5-10.1)
[2022-01-18 09:58] LABS: CREATININE 0.8 mg/dL (0.55-1.3)
[2022-01-18 10:01] LABS: BILIRUBIN,TOTAL 0.4 mg/dL (0.2-1); TOT PROT 6.8 g/dl (6.4-8.2)
[2022-01-18] MEDS: CEFTRIAXONE 1 GM in DEXTROSE 5%-WATER - 50 ML IVPB SCH (11:03)
[2022-01-18] MEDS: VERAPAMIL HCL 240 MG E.R. TABLET PO SCH (11:03)
[2022-01-18] MEDS: ENOXAPARIN NA (PORCINE) 40 MG/0.4 ML DISP.SYRIN SQ SCH (11:04)
[2022-01-18] MEDS: amLODIPine BESYLATE 5 MG TABLET (FP) PO SCH (11:04)
[2022-01-18] MEDS: PANTOPRAZOLE 40 MG TABLET PO SCH (11:04)
[2022-01-18] MEDS ORDERED: INSULIN (NOVOLOG) ASPART 100 UNITS/ML 10ML VIAL ONE (21:28)
[2022-01-19] MEDS: LACTATED RINGERS SOLUTION 1,000 ML IV SCH ×2 (05:55→17:15)
[2022-01-19] MEDS: INSULIN SLIDING SCALE (NOVOLOG) 1 VIAL SQ SCH ×4 (06:01→21:23)
[2022-01-19] MEDS: PANTOPRAZOLE 40 MG TABLET PO SCH (10:25)
[2022-01-19] MEDS: CEFTRIAXONE 1 GM in DEXTROSE 5%-WATER - 50 ML IVPB SCH (10:25)
[2022-01-19] MEDS: amLODIPine BESYLATE 5 MG TABLET (FP) PO SCH (10:25)
[2022-01-19] MEDS: ENOXAPARIN NA (PORCINE) 40 MG/0.4 ML DISP.SYRIN SQ SCH (10:26)
[2022-01-19] MEDS: VERAPAMIL HCL 240 MG E.R. TABLET PO SCH (10:28)
[2022-01-19] MEDS: TAMSULOSIN HCL 0.4 MG CAP PO SCH (10:28)
[2022-01-19 10:34] LABS: BASO % 1.1 % (0-2.0); EOS % 2.8 % (0-4.5); HEMATOCRIT 34.3 % (32.4-45.2); HEMOGLOBIN 10.9 GM/dL (10.7-15.3); LYMPH % 16.2 % (8-40); MCH 26.8 pg (25.7-33.7); MCHC 31.9 g/dl (32.0-36.0); MEAN CELL VOLUME 84.1 fl (80-96); MONO % 9.3 % (3.8-10.2); NEUT % 70.6 % (42.8-82.8); PLATELET COUNT 338 10^3/uL (134-434); RBC 4.08 M/mm3 (3.60-5.2); RDW 17.8 % (11.6-15.6); WHITE BLOOD COUNT 6.1 K/mm3 (4.0-10.0)
[2022-01-19 11:09] LABS: ALBUMIN 2.9 g/dl (3.4-5.0); BLOOD UREA NITROGEN 17.2 mg/dL (7-18)
[2022-01-19 11:11] LABS: BILIRUBIN,TOTAL 0.3 mg/dL (0.2-1); TOT PROT 6.3 g/dl (6.4-8.2)
[2022-01-19 11:12] LABS: CREATININE 0.8 mg/dL (0.55-1.3)
[2022-01-20] MEDS: INSULIN SLIDING SCALE (NOVOLOG) 1 VIAL SQ SCH ×4 (06:19→22:01)
[2022-01-20] MEDS: LACTATED RINGERS SOLUTION 1,000 ML IV SCH (06:22)
[2022-01-20] MEDS: TAMSULOSIN HCL 0.4 MG CAP PO SCH ×2 (09:09→09:10)
[2022-01-20] MEDS: ENOXAPARIN NA (PORCINE) 40 MG/0.4 ML DISP.SYRIN SQ SCH (09:10)
[2022-01-20] MEDS: PANTOPRAZOLE 40 MG TABLET PO SCH (09:10)
[2022-01-20] MEDS: CEFTRIAXONE 1 GM in DEXTROSE 5%-WATER - 50 ML IVPB SCH (09:10)
[2022-01-20] MEDS: amLODIPine BESYLATE 5 MG TABLET (FP) PO SCH (09:10)
[2022-01-20] MEDS: VERAPAMIL HCL 240 MG E.R. TABLET PO SCH (09:24)
[2022-01-20 14:23] LABS: BASO % 0.8 % (0-2.0); EOS % 2.1 % (0-4.5); HEMATOCRIT 34.5 % (32.4-45.2); LYMPH % 17.9 % (8-40); MCH 26.7 pg (25.7-33.7); MCHC 31.9 g/dl (32.0-36.0); MEAN CELL VOLUME 83.7 fl (80-96); MEAN PLT VOLUME 8.3 fl (7.5-11.1); MONO % 8.5 % (3.8-10.2); NEUT % 70.7 % (42.8-82.8); PLATELET COUNT 310 10^3/uL (134-434); RBC 4.13 M/mm3 (3.60-5.2); RDW 17.6 % (11.6-15.6); WHITE BLOOD COUNT 7.2 K/mm3 (4.0-10.0)
[2022-01-20 14:47] LABS: BLOOD UREA NITROGEN 15.3 mg/dL (7-18); CALCIUM 8.6 mg/dL (8.5-10.1)
[2022-01-20 14:51] LABS: CREATININE 0.9 mg/dL (0.55-1.3)
[2022-01-21] MEDS: INSULIN SLIDING SCALE (NOVOLOG) 1 VIAL SQ SCH ×4 (06:15→22:16)
[2022-01-21 09:30] LABS: CALCIUM 9.3 mg/dL (8.5-10.1)
[2022-01-21 09:31] LABS: BLOOD UREA NITROGEN 13.5 mg/dL (7-18)
[2022-01-21 09:34] LABS: CREATININE 0.6 mg/dL (0.55-1.3)
[2022-01-21] MEDS: VERAPAMIL HCL 240 MG E.R. TABLET PO SCH (10:08)
[2022-01-21] MEDS: ENOXAPARIN NA (PORCINE) 40 MG/0.4 ML DISP.SYRIN SQ SCH (10:08)
[2022-01-21] MEDS: amLODIPine BESYLATE 5 MG TABLET (FP) PO SCH (10:08)
[2022-01-21] MEDS: PANTOPRAZOLE 40 MG TABLET PO SCH (10:09)
[2022-01-21] MEDS: TAMSULOSIN HCL 0.4 MG CAP PO SCH (10:09)
[2022-01-21] MEDS: CEFTRIAXONE 1 GM in DEXTROSE 5%-WATER - 50 ML IVPB SCH (10:09)
[2022-01-21] MEDS: LACTATED RINGERS SOLUTION 1,000 ML IV SCH (10:14)
[2022-01-21] MEDS ORDERED: INSULIN (NOVOLOG) ASPART 100 UNITS/ML 10ML VIAL ONE (19:58)
[2022-01-21] MEDS ORDERED: INSULIN (LEVEMIR) 100 UNITS/ML UNITS SQ ONE (19:59)
[2022-01-22] MEDS: LACTATED RINGERS SOLUTION 1,000 ML IV SCH ×2 (01:10→06:09)
[2022-01-22] MEDS: INSULIN SLIDING SCALE (NOVOLOG) 1 VIAL SQ SCH ×2 (06:10→10:51)
[2022-01-22] MEDS: VERAPAMIL HCL 240 MG E.R. TABLET PO SCH (10:35)
[2022-01-22] MEDS: CEFTRIAXONE 1 GM in DEXTROSE 5%-WATER - 50 ML IVPB SCH (10:35)
[2022-01-22] MEDS: amLODIPine BESYLATE 5 MG TABLET (FP) PO SCH (10:35)
[2022-01-22] MEDS: ENOXAPARIN NA (PORCINE) 40 MG/0.4 ML DISP.SYRIN SQ SCH (10:35)
[2022-01-22] MEDS: PANTOPRAZOLE 40 MG TABLET PO SCH (10:35)
[2022-01-22] MEDS: TAMSULOSIN HCL 0.4 MG CAP PO SCH (10:36)
[2022-01-22 14:10] VITALS: BP 123/70; PULSE 81; RESP 20; TEMP 98.2
== END 2022-01-22 16:40 | disposition home or self-care (01) | DRG 689 ==
LOC: JER 21:38 → JERBED 22:59 → OBSVTOIN 01-17 04:34 → J7W 01-17 18:44
PROVIDERS: ADMIT Internal Medicine; ATTEND Nurse Practitioner Family
DX: N39.0 Urinary tract infection, site not specified (principal); G93.41 Metabolic encephalopathy; K21.9 Gastro-esophageal reflux disease without esophagitis; E11.9 Type 2 diabetes mellitus without complications; E78.5 Hyperlipidemia, unspecified; I12.9 Hypertensive chronic kidney disease with stage 1 through stage 4 chronic kidney disease, or unspecified chronic kidney disease; N18.9 Chronic kidney disease, unspecified; D72.829 Elevated white blood cell count, unspecified
CPT/HCPCS: 36415; 71045-TC-FY; 76775-TC; 80048; 80053; 81003; 82962; 83735; 84100; 84484; 85025; 87086; 93005; 93010; 97116-GP; 97162-GP; 99285-25; C9803-CS; G0378; U0003; U0005

== ENCOUNTER 2022-03-10 10:01 | Emergency (ER) | payer BC, OTHER ==
[2022-03-10 10:08] VITALS: BMI 26.4
[2022-03-10 13:29] LABS: URINE APPEARANCE CLEAR; URINE BILIRUBIN NEGATIVE (NEGATIVE); URINE COLOR YELLOW; URINE GLUCOSE (UA) NEGATIVE (NEGATIVE); URINE KETONE NEGATIVE (NEGATIVE); URINE LEUK ESTERASE NEGATIVE (NEGATIVE); URINE NITRITE NEGATIVE (NEGATIVE); URINE PROTEIN NEGATIVE (NEGATIVE); URINE UROBILINOGEN 0.2 mg/dL (0.2-1.0)
[2022-03-10 13:30] LABS: BASO % 0.7 % (0-2.0); EOS % 0.9 % (0-4.5); HEMATOCRIT 40.5 % (32.4-45.2); HEMOGLOBIN 12.9 GM/dL (10.7-15.3); LYMPH % 15.7 % (8-40); MCH 27.1 pg (25.7-33.7); MEAN CELL VOLUME 84.9 fl (80-96); MEAN PLT VOLUME 7.6 fl (7.5-11.1); MONO % 7.4 % (3.8-10.2); NEUT % 75.3 % (42.8-82.8); PLATELET COUNT 399 10^3/uL (134-434); RBC 4.77 M/mm3 (3.60-5.2); RDW 17.8 % (11.6-15.6); WHITE BLOOD COUNT 9.4 K/mm3 (4.0-10.0)
[2022-03-10 13:56] LABS: CALCIUM 9.8 mg/dL (8.5-10.1)
[2022-03-10 13:57] LABS: ALBUMIN 3.5 g/dl (3.4-5.0); BLOOD UREA NITROGEN 12.9 mg/dL (7-18); MAGNESIUM 1.9 mg/dL (1.8-2.4)
[2022-03-10 14:00] LABS: CREATININE 0.7 mg/dL (0.55-1.3)
[2022-03-10 14:02] LABS: BILIRUBIN,TOTAL 0.4 mg/dL (0.2-1); TOT PROT 7.7 g/dl (6.4-8.2)
[2022-03-10 14:14] VITALS: BP 140/74; PULSE 75; RESP 22; TEMP 98.1
== END 2022-03-10 14:55 | disposition home or self-care (01) ==
LOC: JER 10:01
DX: R42 Dizziness and giddiness (principal)
CPT/HCPCS: 36415; 80053; 81003; 82962; 83735; 84484; 85025; 93005; 93010; 99284-25

== ENCOUNTER 2022-04-08 13:24 | Emergency (ER) | payer BC, OTHER ==
[2022-04-08 14:00] VITALS: BP 136/69; PULSE 74; RESP 20; TEMP 99.3; BMI 26.4
[2022-04-08] MEDS ORDERED: IBUPROFEN 400 MG TABLET (FP) PO ONE ×2 (15:21→15:24)
== END 2022-04-08 17:06 | disposition home or self-care (01) ==
LOC: JER 13:24
DX: M54.2 Cervicalgia (principal)
CPT/HCPCS: 71046-TC-FY; 72050-TC-FY; 99284-25

== ENCOUNTER 2022-04-28 12:28 | Emergency (ER) | payer BC ==
[2022-04-28 12:30] VITALS: RESP 18; TEMP 97.9; BMI 27.3
[2022-04-28 15:45] LABS: BASO % 1.4 % (0-2.0); EOS % 1.3 % (0-4.5); HEMATOCRIT 37.7 % (32.4-45.2); HEMOGLOBIN 12.4 GM/dL (10.7-15.3); LYMPH % 21.9 % (8-40); MCH 27.9 pg (25.7-33.7); MCHC 32.9 g/dl (32.0-36.0); MEAN PLT VOLUME 7.9 fl (7.5-11.1); NEUT % 68.4 % (42.8-82.8); PLATELET COUNT 375 10^3/uL (134-434); RBC 4.44 M/mm3 (3.60-5.2); RDW 18.1 % (11.6-15.6); WHITE BLOOD COUNT 7.9 K/mm3 (4.0-10.0)
[2022-04-28 15:52] LABS: INR 1.04 (0.83-1.09)
[2022-04-28 16:06] LABS: CHLORIDE 102 mmol/L (98-107); SODIUM 135 mmol/L (136-145)
[2022-04-28 16:08] LABS: CALCIUM 8.6 mg/dL (8.5-10.1)
[2022-04-28 16:09] LABS: ALBUMIN 3.2 g/dl (3.4-5.0); BLOOD UREA NITROGEN 12.5 mg/dL (7-18); CO2 30 mmol/L (21-32); GLUCOSE,RANDOM 95 mg/dL (74-106); LIPASE 50 U/L (73-393); MAGNESIUM 1.9 mg/dL (1.8-2.4)
[2022-04-28 16:12] LABS: CREATININE 0.8 mg/dL (0.55-1.3); SGOT/AST 73 U/L (15-37)
[2022-04-28 16:13] LABS: BILIRUBIN,TOTAL 0.4 mg/dL (0.2-1)
[2022-04-28 16:15] LABS: ALK PHOS 111 U/L (45-117)
[2022-04-28 16:31] LABS: ANION GAP 3 MMOL/L (8-16); SGPT/ALT 24 U/L (13-61)
[2022-04-28 17:56] LABS: EPI CELLS 2 /uL (0-25.1); HYALINE CASTS 0 /uL (0-3.1); PH,URINE 6.5 (5.0-8.0); URINE APPEARANCE CLEAR; URINE BACTERIA 3954 /uL (0-1359); URINE BILIRUBIN NEGATIVE (NEGATIVE); URINE COLOR YELLOW; URINE GLUCOSE (UA) NEGATIVE (NEGATIVE); URINE KETONE NEGATIVE (NEGATIVE); URINE LEUK ESTERASE NEGATIVE (NEGATIVE); URINE NITRITE POSITIVE (NEGATIVE); URINE PROTEIN TRACE (NEGATIVE); URINE RBC 4 /uL (0-23.9); URINE UROBILINOGEN 0.2 mg/dL (0.2-1.0); URINE WBC 14 /uL (0-25.8)
[2022-04-28 18:15] VITALS: BP 177/86; PULSE 67
[2022-04-28 18:47] LABS: ALBUMIN 3.2 g/dl (3.4-5.0); CALCIUM 9.1 mg/dL (8.5-10.1)
[2022-04-28] MEDS ORDERED: CEPHALEXIN MONOHYDRATE 500 MG CAPSULE (UD) PO ONE (18:47)
[2022-04-28 18:48] LABS: BLOOD UREA NITROGEN 13.9 mg/dL (7-18)
[2022-04-28 18:51] LABS: CREATININE 0.7 mg/dL (0.55-1.3)
[2022-04-28 18:52] LABS: BILIRUBIN,TOTAL 0.3 mg/dL (0.2-1); TOT PROT 6.9 g/dl (6.4-8.2)
[2022-04-28] MEDS ORDERED: CEPHALEXIN MONOHYDRATE 500 MG CAPSULE (UD) ONE (18:59)
== END 2022-04-28 19:45 | disposition home or self-care (01) ==
LOC: JER 12:28
DX: K59.00 Constipation, unspecified (principal); R10.9 Unspecified abdominal pain; I10 Essential (primary) hypertension
CPT/HCPCS: 0241U-QW; 36415; 71046-TC-FY; 80053; 81003; 83690; 83735; 84484; 85025; 85610; 85730; 87086; 87186; 93005; 93010; 99284-25

== ENCOUNTER 2022-05-01 10:42 | Inpatient (IN) | payer BC, OTHER ==
[2022-05-01] MEDS ORDERED: SODIUM CHLORIDE 1,000 ML IV SCH (11:45)
[2022-05-01 12:23] LABS: HEMATOCRIT 40.3 % (32.4-45.2); HEMOGLOBIN 12.7 GM/dL (10.7-15.3); MCH 26.7 pg (25.7-33.7); MCHC 31.5 g/dl (32.0-36.0); MEAN CELL VOLUME 84.9 fl (80-96); MEAN PLT VOLUME 7.7 fl (7.5-11.1); PLATELET COUNT 433 10^3/uL (134-434); RBC 4.75 M/mm3 (3.60-5.2); RDW 17.5 % (11.6-15.6); WHITE BLOOD COUNT 16.3 K/mm3 (4.0-10.0)
[2022-05-01 12:31] LABS: INR 1.08 (0.83-1.09); PROTHROMBIN TIME (PATIENT) 12.4 SEC (9.7-13.0)
[2022-05-01 12:51] LABS: ANISOCYTOSIS 0; HELMET CELLS 0; HOWELL-JOLLY BODIES 0; MACROCYTOSIS 0; OVALOCYTE 0; ROULEAU 0; SICKELED CELLS 0; TARGET CELLS 0; TEAR DROP CELLS 0; TOXIC GRANULATION 0
[2022-05-01 12:54] LABS: CALCIUM 9.5 mg/dL (8.5-10.1)
[2022-05-01 12:55] LABS: ALBUMIN 3.6 g/dl (3.4-5.0); BLOOD UREA NITROGEN 13.5 mg/dL (7-18)
[2022-05-01 12:58] LABS: CHOLESTEROL 247 mg/dL (50-200); CREATININE 0.7 mg/dL (0.55-1.3); TRIGLYCERIDES 137 mg/dL (0-150)
[2022-05-01 12:59] LABS: BILIRUBIN,TOTAL 0.4 mg/dL (0.2-1); LDL CHOLESTEROL (ONLY SJRH) 148 mg/dL (5-100)
[2022-05-01 13:00] LABS: TOT PROT 7.8 g/dl (6.4-8.2)
[2022-05-01 13:01] LABS: HDL CHOLESTEROL 70 mg/dL (40-60)
[2022-05-01] MEDS ORDERED: LABETALOL HCL 5 MG/1 ML (100MG/20 ML VIAL) IVPUSH ONE (13:27)
[2022-05-01] MEDS: NICARDIPINE 25 MG in DEXTROSE 5%-WATER - 240 ML IVPB SCH ×2 (14:22→19:37)
[2022-05-01 15:24] VITALS: BMI 24.7
[2022-05-01] MEDS ORDERED: ACETAMINOPHEN 1000 MG/100 ML BAG IVPB PRN (15:43)
[2022-05-01 16:10] LABS: EPI CELLS 6 /uL (0-25.1); HYALINE CASTS 0 /uL (0-3.1); PH,URINE 6.5 (5.0-8.0); URINE APPEARANCE CLOUDY; URINE BACTERIA 159 /uL (0-1359); URINE BILIRUBIN NEGATIVE (NEGATIVE); URINE COLOR YELLOW; URINE GLUCOSE (UA) NEGATIVE (NEGATIVE); URINE KETONE NEGATIVE (NEGATIVE); URINE LEUK ESTERASE NEGATIVE (NEGATIVE); URINE NITRITE NEGATIVE (NEGATIVE); URINE PROTEIN 1+ (NEGATIVE); URINE RBC 11 /uL (0-23.9); URINE UROBILINOGEN 0.2 mg/dL (0.2-1.0); URINE WBC 2 /uL (0-25.8)
[2022-05-01] MEDS: CEFTRIAXONE 1 GM in DEXTROSE 5%-WATER - 50 ML IVPB SCH (16:46)
[2022-05-01] MEDS: MUPIROCIN 2% TOPICAL OINTMENT FOR DECOLONIZATION NS SCH (21:46)
[2022-05-01] MEDS: CHLORHEXIDINE GLUCONATE 4% CLEANSER FOR DECOLONIZATION TP SCH (21:46)
[2022-05-02 06:42] LABS: BASO % 0.5 % (0-2.0); EOS % 0.5 % (0-4.5); HEMATOCRIT 35.8 % (32.4-45.2); HEMOGLOBIN 11.6 GM/dL (10.7-15.3); LYMPH % 14.1 % (8-40); MCH 27.6 pg (25.7-33.7); MCHC 32.4 g/dl (32.0-36.0); MEAN CELL VOLUME 85.2 fl (80-96); MEAN PLT VOLUME 7.8 fl (7.5-11.1); MONO % 9.5 % (3.8-10.2); NEUT % 75.4 % (42.8-82.8); PLATELET COUNT 356 10^3/uL (134-434); RDW 17.6 % (11.6-15.6); WHITE BLOOD COUNT 10.2 K/mm3 (4.0-10.0)
[2022-05-02 06:45] LABS: INR 1.09 (0.83-1.09); PROTHROMBIN TIME (PATIENT) 12.5 SEC (9.7-13.0)
[2022-05-02 06:47] LABS: ACTIVATED PTT 30.4 SECONDS (25.2-36.5)
[2022-05-02 06:59] LABS: CALCIUM 8.9 mg/dL (8.5-10.1)
[2022-05-02 07:00] LABS: MAGNESIUM 1.8 mg/dL (1.8-2.4)
[2022-05-02 07:03] LABS: CREATININE 0.7 mg/dL (0.55-1.3); PHOSPHOROUS 3.4 mg/dL (2.5-4.9)
[2022-05-02 07:04] LABS: TOT PROT 6.5 g/dl (6.4-8.2)
[2022-05-02 07:05] LABS: BILIRUBIN,TOTAL 0.3 mg/dL (0.2-1)
[2022-05-02] MEDS: CEFTRIAXONE 1 GM in DEXTROSE 5%-WATER - 50 ML IVPB SCH (09:13)
[2022-05-02] MEDS: PANTOPRAZOLE SODIUM 40 MG VIAL IVPUSH SCH (09:13)
[2022-05-02] MEDS: MUPIROCIN 2% TOPICAL OINTMENT FOR DECOLONIZATION NS SCH ×2 (09:16→21:29)
[2022-05-02] MEDS ORDERED: LABETALOL HCL 20 MG/4 ML VIAL IVPUSH PRN (14:41)
[2022-05-02] MEDS ORDERED: NICARDIPINE 25 MG in DEXTROSE 5%-WATER - 240 ML IVPB SCH (15:15)
[2022-05-02] MEDS ORDERED: LABETALOL HCL 20 MG/4 ML VIAL IVPUSH ONE (20:58)
[2022-05-02] MEDS ORDERED: ACETAMINOPHEN 1000 MG/100 ML BAG IVPB ONE (21:12)
[2022-05-02] MEDS: CHLORHEXIDINE GLUCONATE 4% CLEANSER FOR DECOLONIZATION TP SCH (21:30)
[2022-05-03] MEDS ORDERED: LABETALOL HCL 5 MG/1 ML (100MG/20 ML VIAL) IVPUSH PRN (01:55)
[2022-05-03 07:14] LABS: BASO % 0.4 % (0-2.0); EOS % 0.5 % (0-4.5); HEMATOCRIT 36.7 % (32.4-45.2); HEMOGLOBIN 11.8 GM/dL (10.7-15.3); LYMPH % 11.3 % (8-40); MCH 27.6 pg (25.7-33.7); MCHC 32.1 g/dl (32.0-36.0); MEAN CELL VOLUME 86.1 fl (80-96); MEAN PLT VOLUME 7.8 fl (7.5-11.1); NEUT % 76.8 % (42.8-82.8); PLATELET COUNT 349 10^3/uL (134-434); RBC 4.26 M/mm3 (3.60-5.2); RDW 17.4 % (11.6-15.6); WHITE BLOOD COUNT 14.9 K/mm3 (4.0-10.0)
[2022-05-03 07:34] LABS: CALCIUM 9.1 mg/dL (8.5-10.1)
[2022-05-03 07:36] LABS: ALBUMIN 2.9 g/dl (3.4-5.0); BLOOD UREA NITROGEN 11.1 mg/dL (7-18); MAGNESIUM 1.8 mg/dL (1.8-2.4)
[2022-05-03 07:39] LABS: CREATININE 0.7 mg/dL (0.55-1.3); PHOSPHOROUS 4.2 mg/dL (2.5-4.9)
[2022-05-03 07:40] LABS: BILIRUBIN,TOTAL 0.4 mg/dL (0.2-1)
[2022-05-03 07:41] LABS: TOT PROT 6.4 g/dl (6.4-8.2)
[2022-05-03] MEDS: CEFTRIAXONE 1 GM in DEXTROSE 5%-WATER - 50 ML IVPB SCH (09:20)
[2022-05-03] MEDS: MUPIROCIN 2% TOPICAL OINTMENT FOR DECOLONIZATION NS SCH ×2 (09:20→21:28)
[2022-05-03] MEDS: PANTOPRAZOLE SODIUM 40 MG VIAL IVPUSH SCH (09:20)
[2022-05-03] MEDS ORDERED: LABETALOL HCL 20 MG/4 ML VIAL IVPUSH PRN (14:05)
[2022-05-03] MEDS: ENALAPRIL MALEATE 5 MG TABLET PO SCH (15:13)
[2022-05-03] MEDS: LABETALOL HCL 20 MG/4 ML VIAL IVPB PRN (18:10)
[2022-05-03] MEDS: CHLORHEXIDINE GLUCONATE 4% CLEANSER FOR DECOLONIZATION TP SCH (21:28)
[2022-05-04] MEDS ORDERED: hydrALAZINE HCL 20 MG/ML VIAL IVPUSH ONE (06:27)
[2022-05-04 07:13] LABS: HEMATOCRIT 36.2 % (32.4-45.2); HEMOGLOBIN 11.6 GM/dL (10.7-15.3); MCH 27.7 pg (25.7-33.7); MCHC 32.1 g/dl (32.0-36.0); MEAN CELL VOLUME 86.3 fl (80-96); MEAN PLT VOLUME 7.4 fl (7.5-11.1); PLATELET COUNT 331 10^3/uL (134-434); RDW 17.2 % (11.6-15.6); WHITE BLOOD COUNT 7.6 K/mm3 (4.0-10.0)
[2022-05-04 07:39] LABS: ALBUMIN 2.7 g/dl (3.4-5.0); CALCIUM 8.9 mg/dL (8.5-10.1)
[2022-05-04 07:40] LABS: BLOOD UREA NITROGEN 12.9 mg/dL (7-18); MAGNESIUM 1.9 mg/dL (1.8-2.4)
[2022-05-04 07:44] LABS: CREATININE 0.7 mg/dL (0.55-1.3); PHOSPHOROUS 3.7 mg/dL (2.5-4.9)
[2022-05-04 07:45] LABS: BILIRUBIN,TOTAL 0.3 mg/dL (0.2-1); TOT PROT 6.1 g/dl (6.4-8.2)
[2022-05-04] MEDS: CEFTRIAXONE 1 GM in DEXTROSE 5%-WATER - 50 ML IVPB SCH (09:02)
[2022-05-04] MEDS: MUPIROCIN 2% TOPICAL OINTMENT FOR DECOLONIZATION NS SCH ×2 (09:03→21:27)
[2022-05-04] MEDS: PANTOPRAZOLE SODIUM 40 MG VIAL IVPUSH SCH (09:03)
[2022-05-04] MEDS: ENALAPRIL MALEATE 5 MG TABLET PO SCH ×2 (09:04→21:27)
[2022-05-04] MEDS: LABETALOL HCL 20 MG/4 ML VIAL IVPB PRN (15:10)
[2022-05-04] MEDS ORDERED: amLODIPine BESYLATE 5 MG TABLET (FP) PO ONE (16:45)
[2022-05-04] MEDS: CHLORHEXIDINE GLUCONATE 4% CLEANSER FOR DECOLONIZATION TP SCH (21:27)
[2022-05-05 07:50] LABS: HEMATOCRIT 36.2 % (32.4-45.2); HEMOGLOBIN 11.6 GM/dL (10.7-15.3); MCH 27.8 pg (25.7-33.7); MCHC 32.2 g/dl (32.0-36.0); MEAN CELL VOLUME 86.3 fl (80-96); PLATELET COUNT 313 10^3/uL (134-434); RBC 4.19 M/mm3 (3.60-5.2); RDW 17.9 % (11.6-15.6)
[2022-05-05 08:04] LABS: CALCIUM 8.8 mg/dL (8.5-10.1)
[2022-05-05 08:05] LABS: ALBUMIN 2.8 g/dl (3.4-5.0); BLOOD UREA NITROGEN 15.1 mg/dL (7-18)
[2022-05-05 08:08] LABS: CREATININE 0.6 mg/dL (0.55-1.3); PHOSPHOROUS 3.4 mg/dL (2.5-4.9)
[2022-05-05 08:09] LABS: BILIRUBIN,TOTAL 0.5 mg/dL (0.2-1); TOT PROT 6.2 g/dl (6.4-8.2)
[2022-05-05] MEDS: CEFTRIAXONE 1 GM in DEXTROSE 5%-WATER - 50 ML IVPB SCH (09:46)
[2022-05-05] MEDS: ENALAPRIL MALEATE 5 MG TABLET PO SCH ×2 (09:46→21:39)
[2022-05-05] MEDS: MUPIROCIN 2% TOPICAL OINTMENT FOR DECOLONIZATION NS SCH ×2 (09:46→21:39)
[2022-05-05] MEDS: amLODIPine BESYLATE 5 MG TABLET (FP) PO SCH (09:46)
[2022-05-05] MEDS: PANTOPRAZOLE SODIUM 40 MG VIAL IVPUSH SCH (09:46)
[2022-05-05] MEDS ORDERED: amLODIPine BESYLATE 5 MG TABLET (FP) PO SCH (10:00)
[2022-05-05] MEDS: LABETALOL HCL 20 MG/4 ML VIAL IVPB PRN (18:08)
[2022-05-05] MEDS: CHLORHEXIDINE GLUCONATE 4% CLEANSER FOR DECOLONIZATION TP SCH (21:39)
[2022-05-06] MEDS ORDERED: LABETALOL HCL 20 MG/4 ML VIAL IVPB PRN (07:12)
[2022-05-06 07:30] LABS: HEMATOCRIT 37.2 % (32.4-45.2); HEMOGLOBIN 11.6 GM/dL (10.7-15.3); MCH 27.3 pg (25.7-33.7); MCHC 31.1 g/dl (32.0-36.0); MEAN CELL VOLUME 87.7 fl (80-96); MEAN PLT VOLUME 8.9 fl (7.5-11.1); PLATELET COUNT 202 10^3/uL (134-434); RBC 4.24 M/mm3 (3.60-5.2); RDW 17.9 % (11.6-15.6); WHITE BLOOD COUNT 11.8 K/mm3 (4.0-10.0)
[2022-05-06 08:02] LABS: BLOOD UREA NITROGEN 16.7 mg/dL (7-18)
[2022-05-06 08:03] LABS: ALBUMIN 2.9 g/dl (3.4-5.0); CALCIUM 9.2 mg/dL (8.5-10.1); MAGNESIUM 2.2 mg/dL (1.8-2.4)
[2022-05-06 08:06] LABS: PHOSPHOROUS 3.9 mg/dL (2.5-4.9)
[2022-05-06 08:07] LABS: CREATININE 0.6 mg/dL (0.55-1.3); TOT PROT 6.7 g/dl (6.4-8.2)
[2022-05-06 08:08] LABS: BILIRUBIN,TOTAL 0.5 mg/dL (0.2-1)
[2022-05-06] MEDS ORDERED: MUPIROCIN 2% TOPICAL OINTMENT FOR DECOLONIZATION NS SCH (10:00)
[2022-05-06] MEDS: ENALAPRIL MALEATE 5 MG TABLET PO SCH (10:07)
[2022-05-06] MEDS: amLODIPine BESYLATE 5 MG TABLET (FP) PO SCH (10:07)
[2022-05-06] MEDS: PANTOPRAZOLE SODIUM 40 MG VIAL IVPUSH SCH (10:08)
[2022-05-06] MEDS: CEFTRIAXONE 1 GM in DEXTROSE 5%-WATER - 50 ML IVPB SCH (10:08)
[2022-05-06] MEDS: hydrALAZINE HCL 20 MG/ML VIAL IVPUSH SCH ×2 (16:36→21:41)
[2022-05-06] MEDS: CHLORHEXIDINE GLUCONATE 4% CLEANSER FOR DECOLONIZATION TP SCH (21:40)
[2022-05-07] MEDS: hydrALAZINE HCL 20 MG/ML VIAL IVPUSH SCH ×4 (03:25→21:49)
[2022-05-07] MEDS: CEFTRIAXONE 1 GM in DEXTROSE 5%-WATER - 50 ML IVPB SCH (09:44)
[2022-05-07] MEDS: PANTOPRAZOLE SODIUM 40 MG VIAL IVPUSH SCH (09:45)
[2022-05-07] MEDS: COLLAGENASE CLOSTRIDIUM HIST. 30 GRAMS TUBE TP SCH (11:19)
[2022-05-07] MEDS: AMINO ACIDS 4.25%/D5W 1,000 ML IV SCH (11:19)
[2022-05-07] MEDS: CHLORHEXIDINE GLUCONATE 4% CLEANSER FOR DECOLONIZATION TP SCH (21:49)
[2022-05-08] MEDS: hydrALAZINE HCL 20 MG/ML VIAL IVPUSH SCH ×4 (02:19→21:11)
[2022-05-08] MEDS: PANTOPRAZOLE SODIUM 40 MG VIAL IVPUSH SCH (10:00)
[2022-05-08] MEDS: CEFTRIAXONE 1 GM in DEXTROSE 5%-WATER - 50 ML IVPB SCH (10:00)
[2022-05-08] MEDS: COLLAGENASE CLOSTRIDIUM HIST. 30 GRAMS TUBE TP SCH (10:02)
[2022-05-08] MEDS: AMINO ACIDS 4.25%/D5W 1,000 ML IV SCH (14:15)
[2022-05-08] MEDS: INSULIN SLIDING SCALE (NOVOLOG) 1 VIAL SQ SCH (22:05)
[2022-05-08] MEDS: CHLORHEXIDINE GLUCONATE 4% CLEANSER FOR DECOLONIZATION TP SCH (22:12)
[2022-05-09] MEDS: hydrALAZINE HCL 20 MG/ML VIAL IVPUSH SCH ×4 (02:28→22:00)
[2022-05-09] MEDS: INSULIN SLIDING SCALE (NOVOLOG) 1 VIAL SQ SCH ×3 (06:23→16:32)
[2022-05-09 08:22] LABS: BASO % 0.2 % (0-2.0); EOS % 0.1 % (0-4.5); HEMATOCRIT 35.8 % (32.4-45.2); HEMOGLOBIN 11.5 GM/dL (10.7-15.3); LYMPH % 3.8 % (8-40); MCH 27.8 pg (25.7-33.7); MCHC 32.2 g/dl (32.0-36.0); MEAN CELL VOLUME 86.4 fl (80-96); MEAN PLT VOLUME 8.4 fl (7.5-11.1); MONO % 11.5 % (3.8-10.2); NEUT % 84.4 % (42.8-82.8); PLATELET COUNT 325 10^3/uL (134-434); RBC 4.14 M/mm3 (3.60-5.2); RDW 17.6 % (11.6-15.6); WHITE BLOOD COUNT 15.5 K/mm3 (4.0-10.0)
[2022-05-09 08:33] LABS: ALBUMIN 2.8 g/dl (3.4-5.0); BLOOD UREA NITROGEN 30.3 mg/dL (7-18); CALCIUM 9.1 mg/dL (8.5-10.1)
[2022-05-09 08:38] LABS: CREATININE 0.6 mg/dL (0.55-1.3); TOT PROT 6.8 g/dl (6.4-8.2)
[2022-05-09 08:45] LABS: BILIRUBIN,TOTAL 0.6 mg/dL (0.2-1)
[2022-05-09] MEDS: CEFTRIAXONE 1 GM in DEXTROSE 5%-WATER - 50 ML IVPB SCH (10:39)
[2022-05-09] MEDS: PANTOPRAZOLE SODIUM 40 MG VIAL IVPUSH SCH (10:39)
[2022-05-09] MEDS: AMINO ACIDS 4.25%/D5W 1,000 ML IV SCH (10:54)
[2022-05-09] MEDS: COLLAGENASE CLOSTRIDIUM HIST. 30 GRAMS TUBE TP SCH (17:44)
[2022-05-09 19:32] LABS: EPI CELLS 9 /uL (0-25.1); HYALINE CASTS 1 /uL (0-3.1); URINE APPEARANCE CLEAR; URINE BACTERIA 5 /uL (0-1359); URINE BILIRUBIN NEGATIVE (NEGATIVE); URINE COLOR YELLOW; URINE GLUCOSE (UA) NEGATIVE (NEGATIVE); URINE KETONE NEGATIVE (NEGATIVE); URINE LEUK ESTERASE NEGATIVE (NEGATIVE); URINE NITRITE NEGATIVE (NEGATIVE); URINE PROTEIN 1+ (NEGATIVE); URINE RBC 22 /uL (0-23.9); URINE UROBILINOGEN 0.2 mg/dL (0.2-1.0); URINE WBC 9 /uL (0-25.8)
[2022-05-09] MEDS: CHLORHEXIDINE GLUCONATE 4% CLEANSER FOR DECOLONIZATION TP SCH (22:00)
[2022-05-10] MEDS: INSULIN SLIDING SCALE (NOVOLOG) 1 VIAL SQ SCH ×5 (00:39→22:29)
[2022-05-10] MEDS: hydrALAZINE HCL 20 MG/ML VIAL IVPUSH SCH ×4 (02:16→22:30)
[2022-05-10 08:22] LABS: BASO % 0.4 % (0-2.0); HEMATOCRIT 36.3 % (32.4-45.2); HEMOGLOBIN 11.6 GM/dL (10.7-15.3); LYMPH % 3.3 % (8-40); MCH 27.4 pg (25.7-33.7); MCHC 31.9 g/dl (32.0-36.0); MEAN CELL VOLUME 85.8 fl (80-96); MEAN PLT VOLUME 8.4 fl (7.5-11.1); MONO % 10.8 % (3.8-10.2); NEUT % 85.5 % (42.8-82.8); PLATELET COUNT 336 10^3/uL (134-434); RBC 4.23 M/mm3 (3.60-5.2); RDW 17.3 % (11.6-15.6); WHITE BLOOD COUNT 16.8 K/mm3 (4.0-10.0)
[2022-05-10 08:54] LABS: ALBUMIN 2.7 g/dl (3.4-5.0); BLOOD UREA NITROGEN 36.7 mg/dL (7-18); CALCIUM 9.5 mg/dL (8.5-10.1); MAGNESIUM 2.2 mg/dL (1.8-2.4)
[2022-05-10 08:57] LABS: CREATININE 0.7 mg/dL (0.55-1.3)
[2022-05-10] MEDS: AMINO ACIDS 4.25%/D5W 1,000 ML IV SCH (11:01)
[2022-05-10] MEDS: PANTOPRAZOLE SODIUM 40 MG VIAL IVPUSH SCH (11:08)
[2022-05-10] MEDS: CEFTRIAXONE 1 GM in DEXTROSE 5%-WATER - 50 ML IVPB SCH (11:09)
[2022-05-10] MEDS: COLLAGENASE CLOSTRIDIUM HIST. 30 GRAMS TUBE TP SCH (11:10)
[2022-05-10] MEDS: PIPERACILLIN/TAZOB 3.375 GM 3.375 GM in DEXTROSE 5%-WATER - 50 ML IVPB SCH ×2 (12:30→18:04)
[2022-05-10] MEDS: ALBUTEROL SO4 2.5/IPRATROPIUM 0.5 INH SOL 3 ML VIAL.NEB. NEB SCH ×2 (14:49→20:53)
[2022-05-10 14:51] LABS: ARTERIAL BLD GAS O2 SATURATION 96.9 % (95-98); ARTERIAL BLOOD GAS BASE EXCESS 0.3 mmol/L (-2-2)
[2022-05-10 14:53] LABS: ALLENS TEST POSITIVE
[2022-05-10] MEDS: methylPREDNISolone NA SUCC 40 MG/1 ML VIAL IVPUSH SCH ×2 (15:11→18:04)
[2022-05-10] MEDS ORDERED: FAT EMULSIONS 20% 250 ML PREMIX INFUS.BAG IV SCH (22:00)
[2022-05-10] MEDS: CHLORHEXIDINE GLUCONATE 4% CLEANSER FOR DECOLONIZATION TP SCH (22:30)
[2022-05-10] MEDS: FAT EMULSION/OLIVE/SOY/PHOSPHO 250 ML IV SCH (22:32)
[2022-05-11] MEDS: methylPREDNISolone NA SUCC 40 MG/1 ML VIAL IVPUSH SCH ×3 (03:22→17:22)
[2022-05-11] MEDS: PIPERACILLIN/TAZOB 3.375 GM 3.375 GM in DEXTROSE 5%-WATER - 50 ML IVPB SCH ×3 (03:22→17:22)
[2022-05-11] MEDS: hydrALAZINE HCL 20 MG/ML VIAL IVPUSH SCH ×4 (03:25→21:49)
[2022-05-11] MEDS: INSULIN SLIDING SCALE (NOVOLOG) 1 VIAL SQ SCH ×4 (06:29→21:53)
[2022-05-11] MEDS: ALBUTEROL SO4 2.5/IPRATROPIUM 0.5 INH SOL 3 ML VIAL.NEB. NEB SCH ×3 (08:06→19:59)
[2022-05-11 08:19] LABS: INR 1.2 (0.83-1.09); PROTHROMBIN TIME (PATIENT) 13.9 SEC (9.7-13.0)
[2022-05-11] MEDS: AMINO ACIDS 4.25%/D5W 1,000 ML IV SCH (10:42)
[2022-05-11] MEDS: PANTOPRAZOLE SODIUM 40 MG VIAL IVPUSH SCH (11:00)
[2022-05-11] MEDS: COLLAGENASE CLOSTRIDIUM HIST. 30 GRAMS TUBE TP SCH (11:00)
[2022-05-11] MEDS: FAT EMULSION/OLIVE/SOY/PHOSPHO 250 ML IV SCH (21:52)
[2022-05-11] MEDS: CHLORHEXIDINE GLUCONATE 4% CLEANSER FOR DECOLONIZATION TP SCH (21:52)
[2022-05-12] MEDS: methylPREDNISolone NA SUCC 40 MG/1 ML VIAL IVPUSH SCH ×3 (03:22→17:32)
[2022-05-12] MEDS: PIPERACILLIN/TAZOB 3.375 GM 3.375 GM in DEXTROSE 5%-WATER - 50 ML IVPB SCH ×3 (03:22→17:32)
[2022-05-12] MEDS: hydrALAZINE HCL 20 MG/ML VIAL IVPUSH SCH ×4 (03:22→21:59)
[2022-05-12] MEDS: INSULIN SLIDING SCALE (NOVOLOG) 1 VIAL SQ SCH ×4 (06:04→22:03)
[2022-05-12 08:02] LABS: HEMATOCRIT 36.3 % (32.4-45.2); HEMOGLOBIN 11.5 GM/dL (10.7-15.3); MCH 27.5 pg (25.7-33.7); MCHC 31.8 g/dl (32.0-36.0); MEAN CELL VOLUME 86.3 fl (80-96); MEAN PLT VOLUME 8.2 fl (7.5-11.1); PLATELET COUNT 375 10^3/uL (134-434); RDW 17.1 % (11.6-15.6); WHITE BLOOD COUNT 16.1 K/mm3 (4.0-10.0)
[2022-05-12] MEDS: ALBUTEROL SO4 2.5/IPRATROPIUM 0.5 INH SOL 3 ML VIAL.NEB. NEB SCH ×3 (08:07→20:16)
[2022-05-12 08:34] LABS: ALBUMIN 2.4 g/dl (3.4-5.0); BILIRUBIN,TOTAL 0.5 mg/dL (0.2-1); BLOOD UREA NITROGEN 51.3 mg/dL (7-18); TOT PROT 6.8 g/dl (6.4-8.2)
[2022-05-12 08:37] LABS: CALCIUM 9.3 mg/dL (8.5-10.1); CREATININE 0.8 mg/dL (0.55-1.3); MAGNESIUM 2.2 mg/dL (1.8-2.4)
[2022-05-12 09:28] LABS: ANISOCYTOSIS 0; HELMET CELLS 0; HOWELL-JOLLY BODIES 0; MACROCYTOSIS 0; OVALOCYTE 0; ROULEAU 0; SICKELED CELLS 0; TARGET CELLS 0; TEAR DROP CELLS 0; TOXIC GRANULATION 0
[2022-05-12] MEDS: COLLAGENASE CLOSTRIDIUM HIST. 30 GRAMS TUBE TP SCH (10:51)
[2022-05-12] MEDS: PANTOPRAZOLE SODIUM 40 MG VIAL IVPUSH SCH (10:51)
[2022-05-12] MEDS: AMINO ACIDS 4.25%/D5W 1,000 ML IV SCH (10:53)
[2022-05-12] MEDS: CHLORHEXIDINE GLUCONATE 4% CLEANSER FOR DECOLONIZATION TP SCH (21:59)
[2022-05-12] MEDS: FAT EMULSION/OLIVE/SOY/PHOSPHO 250 ML IV SCH (22:01)
[2022-05-13] MEDS: PIPERACILLIN/TAZOB 3.375 GM 3.375 GM in DEXTROSE 5%-WATER - 50 ML IVPB SCH ×3 (03:03→17:37)
[2022-05-13] MEDS: methylPREDNISolone NA SUCC 40 MG/1 ML VIAL IVPUSH SCH ×3 (03:03→17:38)
[2022-05-13] MEDS: hydrALAZINE HCL 20 MG/ML VIAL IVPUSH SCH ×2 (04:09→10:00)
[2022-05-13] MEDS ORDERED: INSULIN (NOVOLOG) ASPART 100 UNITS/ML 10ML VIAL ONE (04:48)
[2022-05-13] MEDS: INSULIN SLIDING SCALE (NOVOLOG) 1 VIAL SQ SCH ×4 (06:43→21:17)
[2022-05-13] MEDS ORDERED: INSULIN (LEVEMIR) 100 UNITS/ML UNITS SQ ONE (07:04)
[2022-05-13 07:43] LABS: HEMATOCRIT 32.2 % (32.4-45.2); HEMOGLOBIN 10.6 GM/dL (10.7-15.3); MCH 28.3 pg (25.7-33.7); MEAN CELL VOLUME 85.6 fl (80-96); MEAN PLT VOLUME 8.1 fl (7.5-11.1); PLATELET COUNT 379 10^3/uL (134-434); RBC 3.76 M/mm3 (3.60-5.2); RDW 17.3 % (11.6-15.6); WHITE BLOOD COUNT 13.9 K/mm3 (4.0-10.0)
[2022-05-13] MEDS: ALBUTEROL SO4 2.5/IPRATROPIUM 0.5 INH SOL 3 ML VIAL.NEB. NEB SCH ×3 (07:46→20:29)
[2022-05-13 07:55] LABS: ALBUMIN 2.5 g/dl (3.4-5.0); BLOOD UREA NITROGEN 57.5 mg/dL (7-18)
[2022-05-13 07:57] LABS: MAGNESIUM 2.1 mg/dL (1.8-2.4)
[2022-05-13 08:00] LABS: BILIRUBIN,TOTAL 0.6 mg/dL (0.2-1); CREATININE 0.9 mg/dL (0.55-1.3); TOT PROT 6.4 g/dl (6.4-8.2)
[2022-05-13 09:43] LABS: ANISOCYTOSIS 0; HELMET CELLS 0; HOWELL-JOLLY BODIES 0; MACROCYTOSIS 0; OVALOCYTE 0; ROULEAU 0; SICKELED CELLS 0; TARGET CELLS 0; TEAR DROP CELLS 0; TOXIC GRANULATION 0
[2022-05-13] MEDS: PANTOPRAZOLE SODIUM 40 MG VIAL IVPUSH SCH (10:47)
[2022-05-13] MEDS: COLLAGENASE CLOSTRIDIUM HIST. 30 GRAMS TUBE TP SCH (10:47)
[2022-05-13] MEDS: AMINO ACIDS 4.25%/D5W 1,000 ML IV SCH (10:48)
[2022-05-13] MEDS ORDERED: METOPROLOL TARTRATE 5 MG/5 ML VIAL IVPB PRN (12:54)
[2022-05-13] MEDS ORDERED: METOPROLOL TARTRATE 5 MG/5 ML VIAL IVPB SCH (13:00)
[2022-05-13] MEDS: METOPROLOL TARTRATE 5 MG/5 ML VIAL IVPB SCH (19:03)
[2022-05-13] MEDS ORDERED: CHLORHEXIDINE GLUCONATE 4% CLEANSER FOR DECOLONIZATION TP SCH (22:00)
[2022-05-14] MEDS: METOPROLOL TARTRATE 5 MG/5 ML VIAL IVPB SCH ×7 (00:35→22:13)
[2022-05-14] MEDS: FAT EMULSION/OLIVE/SOY/PHOSPHO 250 ML IV SCH ×2 (01:32→22:06)
[2022-05-14] MEDS: methylPREDNISolone NA SUCC 40 MG/1 ML VIAL IVPUSH SCH ×3 (02:35→18:38)
[2022-05-14] MEDS: PIPERACILLIN/TAZOB 3.375 GM 3.375 GM in DEXTROSE 5%-WATER - 50 ML IVPB SCH ×2 (02:35→10:52)
[2022-05-14] MEDS: INSULIN SLIDING SCALE (NOVOLOG) 1 VIAL SQ SCH ×4 (06:34→22:06)
[2022-05-14] MEDS: ALBUTEROL SO4 2.5/IPRATROPIUM 0.5 INH SOL 3 ML VIAL.NEB. NEB SCH ×3 (08:20→20:15)
[2022-05-14 10:04] LABS: HEMATOCRIT 33.2 % (32.4-45.2); HEMOGLOBIN 11.2 GM/dL (10.7-15.3); MCH 28.7 pg (25.7-33.7); MCHC 33.7 g/dl (32.0-36.0); MEAN CELL VOLUME 85.1 fl (80-96); MEAN PLT VOLUME 7.8 fl (7.5-11.1); PLATELET COUNT 391 10^3/uL (134-434); WHITE BLOOD COUNT 12.7 K/mm3 (4.0-10.0)
[2022-05-14 10:05] LABS: INR 1.16 (0.83-1.09); PROTHROMBIN TIME (PATIENT) 13.4 SEC (9.7-13.0)
[2022-05-14 10:23] LABS: ALBUMIN 2.6 g/dl (3.4-5.0); BLOOD UREA NITROGEN 45.1 mg/dL (7-18); CALCIUM 9.1 mg/dL (8.5-10.1); MAGNESIUM 2.3 mg/dL (1.8-2.4)
[2022-05-14 10:27] LABS: CREATININE 0.8 mg/dL (0.55-1.3)
[2022-05-14 10:28] LABS: BILIRUBIN,TOTAL 0.8 mg/dL (0.2-1); TOT PROT 6.5 g/dl (6.4-8.2)
[2022-05-14] MEDS: PANTOPRAZOLE SODIUM 40 MG VIAL IVPUSH SCH (11:19)
[2022-05-14 11:20] LABS: ANISOCYTOSIS 0; MACROCYTOSIS 0
[2022-05-14] MEDS: AMINO ACIDS 4.25%/D5W 1,000 ML IV SCH (11:21)
[2022-05-14] MEDS: COLLAGENASE CLOSTRIDIUM HIST. 30 GRAMS TUBE TP SCH (14:49)
[2022-05-15] MEDS: methylPREDNISolone NA SUCC 40 MG/1 ML VIAL IVPUSH SCH ×4 (02:00→20:30)
[2022-05-15] MEDS: METOPROLOL TARTRATE 5 MG/5 ML VIAL IVPB SCH ×5 (05:03→20:29)
[2022-05-15] MEDS: INSULIN SLIDING SCALE (NOVOLOG) 1 VIAL SQ SCH ×4 (06:07→21:23)
[2022-05-15] MEDS: ALBUTEROL SO4 2.5/IPRATROPIUM 0.5 INH SOL 3 ML VIAL.NEB. NEB SCH ×3 (07:55→20:05)
[2022-05-15] MEDS ORDERED: PHENOL 177 ML SPRAY BOTTLE MM PRN (09:18)
[2022-05-15] MEDS: COLLAGENASE CLOSTRIDIUM HIST. 30 GRAMS TUBE TP SCH (10:26)
[2022-05-15] MEDS: PANTOPRAZOLE SODIUM 40 MG VIAL IVPUSH SCH (10:26)
[2022-05-15] MEDS: AMINO ACIDS 4.25%/D5W 1,000 ML IV SCH (10:27)
[2022-05-15 11:07] LABS: HEMATOCRIT 37.2 % (32.4-45.2); HEMOGLOBIN 11.8 GM/dL (10.7-15.3); MCH 27.3 pg (25.7-33.7); MCHC 31.6 g/dl (32.0-36.0); MEAN CELL VOLUME 86.6 fl (80-96); MEAN PLT VOLUME 9.2 fl (7.5-11.1); PLATELET COUNT 244 10^3/uL (134-434); RDW 17.5 % (11.6-15.6); WHITE BLOOD COUNT 12.6 K/mm3 (4.0-10.0)
[2022-05-15 11:41] LABS: ALBUMIN 2.6 g/dl (3.4-5.0); BLOOD UREA NITROGEN 36.4 mg/dL (7-18); CALCIUM 8.9 mg/dL (8.5-10.1); MAGNESIUM 2.3 mg/dL (1.8-2.4)
[2022-05-15 11:42] LABS: BILIRUBIN,TOTAL 0.6 mg/dL (0.2-1); TOT PROT 6.3 g/dl (6.4-8.2)
[2022-05-15 11:44] LABS: CREATININE 0.6 mg/dL (0.55-1.3)
[2022-05-15 11:50] LABS: ANISOCYTOSIS 0; MACROCYTOSIS 0
[2022-05-15] MEDS ORDERED: OLIVE IV SCH (17:57)
[2022-05-15] MEDS ORDERED: SOY IV SCH (17:57)
[2022-05-15] MEDS ORDERED: FAT EMULSION IV SCH (17:57)
[2022-05-15] MEDS ORDERED: MULTIVIT IV SCH (17:57)
[2022-05-15] MEDS ORDERED: PHOSPHO IV SCH (17:57)
[2022-05-15] MEDS: FAT EMULSION/OLIVE/SOY/PHOSPHO 250 ML IV SCH (21:19)
[2022-05-16] MEDS: METOPROLOL TARTRATE 5 MG/5 ML VIAL IVPB SCH ×7 (00:53→22:31)
[2022-05-16] MEDS: methylPREDNISolone NA SUCC 40 MG/1 ML VIAL IVPUSH SCH (06:29)
[2022-05-16] MEDS: ALBUTEROL SO4 2.5/IPRATROPIUM 0.5 INH SOL 3 ML VIAL.NEB. NEB SCH ×3 (07:15→20:45)
[2022-05-16] MEDS: INSULIN SLIDING SCALE (NOVOLOG) 1 VIAL SQ SCH ×4 (07:47→22:31)
[2022-05-16] MEDS: PANTOPRAZOLE SODIUM 40 MG VIAL IVPUSH SCH (09:56)
[2022-05-16] MEDS: COLLAGENASE CLOSTRIDIUM HIST. 30 GRAMS TUBE TP SCH (09:57)
[2022-05-16] MEDS: AMINO ACIDS 4.25%/D5W 1,000 ML IV SCH (11:06)
[2022-05-16] MEDS: MULTIVIT INJ. ADULT COMBO WITH VIT K 1 COMBO 10 ML VIAL IV SCH (11:07)
[2022-05-16 11:31] LABS: HEMATOCRIT 35.6 % (32.4-45.2); HEMOGLOBIN 11.3 GM/dL (10.7-15.3); MCH 27.4 pg (25.7-33.7); MCHC 31.8 g/dl (32.0-36.0); MEAN CELL VOLUME 86.2 fl (80-96); MEAN PLT VOLUME 8.9 fl (7.5-11.1); PLATELET COUNT 333 10^3/uL (134-434); RBC 4.13 M/mm3 (3.60-5.2); RDW 17.3 % (11.6-15.6); WHITE BLOOD COUNT 14.6 K/mm3 (4.0-10.0)
[2022-05-16 12:13] LABS: ALBUMIN 2.5 g/dl (3.4-5.0); BLOOD UREA NITROGEN 29.4 mg/dL (7-18); CALCIUM 8.8 mg/dL (8.5-10.1)
[2022-05-16 12:14] LABS: CREATININE 0.5 mg/dL (0.55-1.3); MAGNESIUM 2.1 mg/dL (1.8-2.4)
[2022-05-16 12:15] LABS: BILIRUBIN,TOTAL 0.6 mg/dL (0.2-1)
[2022-05-16 12:16] LABS: TOT PROT 6.1 g/dl (6.4-8.2)
[2022-05-16 13:02] LABS: ANISOCYTOSIS 0; MACROCYTOSIS 1+
[2022-05-16] MEDS ORDERED: hydrALAZINE HCL 20 MG/ML VIAL IVPUSH PRN (14:00)
[2022-05-16] MEDS: FAT EMULSION/OLIVE/SOY/PHOSPHO 250 ML IV SCH (22:31)
[2022-05-17] MEDS: METOPROLOL TARTRATE 5 MG/5 ML VIAL IVPB SCH ×5 (03:55→21:06)
[2022-05-17] MEDS: INSULIN SLIDING SCALE (NOVOLOG) 1 VIAL SQ SCH ×4 (06:18→21:33)
[2022-05-17] MEDS: ALBUTEROL SO4 2.5/IPRATROPIUM 0.5 INH SOL 3 ML VIAL.NEB. NEB SCH ×3 (08:40→20:39)
[2022-05-17] MEDS ORDERED: methylPREDNISolone NA SUCC 40 MG/1 ML VIAL IVPUSH SCH (10:00)
[2022-05-17 10:04] LABS: ALBUMIN 2.4 g/dl (3.4-5.0); CALCIUM 8.4 mg/dL (8.5-10.1); MAGNESIUM 2.1 mg/dL (1.8-2.4)
[2022-05-17] MEDS: PANTOPRAZOLE SODIUM 40 MG VIAL IVPUSH SCH (10:05)
[2022-05-17 10:06] LABS: CREATININE 0.5 mg/dL (0.55-1.3)
[2022-05-17 10:07] LABS: BILIRUBIN,TOTAL 0.6 mg/dL (0.2-1); TOT PROT 5.8 g/dl (6.4-8.2)
[2022-05-17] MEDS: AMINO ACIDS 4.25%/D5W 1,000 ML IV SCH ×2 (12:14→17:44)
[2022-05-17] MEDS: MULTIVIT INJ. ADULT COMBO WITH VIT K 1 COMBO 10 ML VIAL IV SCH (13:14)
[2022-05-17] MEDS: COLLAGENASE CLOSTRIDIUM HIST. 30 GRAMS TUBE TP SCH (13:14)
[2022-05-17] MEDS: FAT EMULSION/OLIVE/SOY/PHOSPHO 250 ML IV SCH (21:33)
[2022-05-18] MEDS: METOPROLOL TARTRATE 5 MG/5 ML VIAL IVPB SCH ×7 (01:09→23:34)
[2022-05-18] MEDS: INSULIN SLIDING SCALE (NOVOLOG) 1 VIAL SQ SCH ×3 (06:24→16:19)
[2022-05-18] MEDS: ALBUTEROL SO4 2.5/IPRATROPIUM 0.5 INH SOL 3 ML VIAL.NEB. NEB SCH ×2 (07:40→13:45)
[2022-05-18] MEDS: COLLAGENASE CLOSTRIDIUM HIST. 30 GRAMS TUBE TP SCH (10:13)
[2022-05-18] MEDS: PANTOPRAZOLE SODIUM 40 MG VIAL IVPUSH SCH (10:13)
[2022-05-18] MEDS: methylPREDNISolone NA SUCC 40 MG/1 ML VIAL IVPUSH SCH (10:16)
[2022-05-18 10:17] LABS: CALCIUM 8.7 mg/dL (8.5-10.1)
[2022-05-18 10:18] LABS: ALBUMIN 2.5 g/dl (3.4-5.0); BLOOD UREA NITROGEN 24.1 mg/dL (7-18)
[2022-05-18 10:21] LABS: CREATININE 0.5 mg/dL (0.55-1.3)
[2022-05-18 10:23] LABS: BILIRUBIN,TOTAL 0.5 mg/dL (0.2-1)
[2022-05-18 10:24] LABS: TOT PROT 5.9 g/dl (6.4-8.2)
[2022-05-18] MEDS: MULTIVIT INJ. ADULT COMBO WITH VIT K 1 COMBO 10 ML VIAL IV SCH (11:04)
[2022-05-18] MEDS: hydrALAZINE HCL 20 MG/ML VIAL IVPUSH SCH ×2 (16:36→23:33)
[2022-05-18] MEDS: AMINO ACIDS 4.25%/D5W 1,000 ML IV SCH (16:49)
[2022-05-19] MEDS: INSULIN SLIDING SCALE (NOVOLOG) 1 VIAL SQ SCH ×5 (00:20→21:32)
[2022-05-19] MEDS: hydrALAZINE HCL 20 MG/ML VIAL IVPUSH SCH ×4 (01:45→21:31)
[2022-05-19] MEDS: METOPROLOL TARTRATE 5 MG/5 ML VIAL IVPB SCH ×3 (03:40→11:51)
[2022-05-19] MEDS: MULTIVIT INJ. ADULT COMBO WITH VIT K 1 COMBO 10 ML VIAL IV SCH ×2 (10:01→17:45)
[2022-05-19] MEDS: COLLAGENASE CLOSTRIDIUM HIST. 30 GRAMS TUBE TP SCH (10:04)
[2022-05-19] MEDS: PANTOPRAZOLE SODIUM 40 MG VIAL IVPUSH SCH (10:04)
[2022-05-19] MEDS: methylPREDNISolone NA SUCC 40 MG/1 ML VIAL IVPUSH SCH (10:04)
[2022-05-19 10:12] LABS: INR 1.1 (0.83-1.09); PROTHROMBIN TIME (PATIENT) 12.7 SEC (9.7-13.0)
[2022-05-19 10:32] LABS: ALBUMIN 2.4 g/dl (3.4-5.0); BLOOD UREA NITROGEN 21.3 mg/dL (7-18); CALCIUM 8.6 mg/dL (8.5-10.1)
[2022-05-19 10:35] LABS: CREATININE 0.4 mg/dL (0.55-1.3)
[2022-05-19 10:37] LABS: BILIRUBIN,TOTAL 0.6 mg/dL (0.2-1); TOT PROT 5.8 g/dl (6.4-8.2)
[2022-05-19] MEDS ORDERED: METOPROLOL TARTRATE 5 MG/5 ML VIAL IVPB PRN (11:50)
[2022-05-20] MEDS: hydrALAZINE HCL 20 MG/ML VIAL IVPUSH SCH ×4 (02:30→21:50)
[2022-05-20] MEDS: INSULIN SLIDING SCALE (NOVOLOG) 1 VIAL SQ SCH ×4 (06:30→21:50)
[2022-05-20] MEDS: methylPREDNISolone NA SUCC 40 MG/1 ML VIAL IVPUSH SCH (09:03)
[2022-05-20] MEDS: PANTOPRAZOLE SODIUM 40 MG VIAL IVPUSH SCH (09:03)
[2022-05-20] MEDS: COLLAGENASE CLOSTRIDIUM HIST. 30 GRAMS TUBE TP SCH (09:04)
[2022-05-20 10:30] LABS: HEMATOCRIT 36.2 % (32.4-45.2); HEMOGLOBIN 11.7 GM/dL (10.7-15.3); MCH 27.9 pg (25.7-33.7); MCHC 32.5 g/dl (32.0-36.0); MEAN CELL VOLUME 85.8 fl (80-96); MEAN PLT VOLUME 8.7 fl (7.5-11.1); PLATELET COUNT 294 10^3/uL (134-434); RBC 4.22 M/mm3 (3.60-5.2); RDW 17.5 % (11.6-15.6); WHITE BLOOD COUNT 14.3 K/mm3 (4.0-10.0)
[2022-05-20 10:58] LABS: CALCIUM 8.7 mg/dL (8.5-10.1)
[2022-05-20 10:59] LABS: ALBUMIN 2.6 g/dl (3.4-5.0); BLOOD UREA NITROGEN 21.9 mg/dL (7-18); MAGNESIUM 2.1 mg/dL (1.8-2.4)
[2022-05-20 11:02] LABS: CREATININE 0.4 mg/dL (0.55-1.3)
[2022-05-20 11:03] LABS: TOT PROT 5.9 g/dl (6.4-8.2)
[2022-05-20 11:04] LABS: BILIRUBIN,TOTAL 0.6 mg/dL (0.2-1)
[2022-05-20 11:17] LABS: ANISOCYTOSIS 0; MACROCYTOSIS 0
[2022-05-20] MEDS: AMINO ACIDS 4.25%/D5W 1,000 ML IV SCH (17:54)
[2022-05-20] MEDS: MULTIVIT INJ. ADULT COMBO WITH VIT K 1 COMBO 10 ML VIAL IV SCH (17:54)
[2022-05-20] MEDS: FAT EMULSION/OLIVE/SOY/PHOSPHO 250 ML IV SCH (22:04)
[2022-05-21] MEDS: hydrALAZINE HCL 20 MG/ML VIAL IVPUSH SCH ×5 (03:03→19:49)
[2022-05-21] MEDS: INSULIN SLIDING SCALE (NOVOLOG) 1 VIAL SQ SCH ×4 (06:20→22:44)
[2022-05-21] MEDS: PANTOPRAZOLE SODIUM 40 MG VIAL IVPUSH SCH (10:24)
[2022-05-21] MEDS: methylPREDNISolone NA SUCC 40 MG/1 ML VIAL IVPUSH SCH (10:26)
[2022-05-21] MEDS: COLLAGENASE CLOSTRIDIUM HIST. 30 GRAMS TUBE TP SCH (11:00)
[2022-05-21] MEDS ORDERED: ePHEDrine SULFATE 50 MG/1 ML AMPULE ONE (13:44)
[2022-05-21] MEDS ORDERED: LIDOCAINE HCL/PF 2% SDV 5ML VIAL ONE (13:44)
[2022-05-21] MEDS ORDERED: PROPOFOL 20 ML ONE (13:45)
[2022-05-21] MEDS ORDERED: ROCURONIUM BROMIDE 50 MG/5 ML SYRINGE ONE (13:45)
[2022-05-21] MEDS ORDERED: MIDAZOLAM HCL 2 MG/2 ML SINGLE DOSE VIAL ONE (13:45)
[2022-05-21] MEDS ORDERED: SUCCINYLCHOLINE CHLORIDE 200 MG/10 ML SYRINGE ONE (13:45)
[2022-05-21] MEDS ORDERED: ceFAZolin SODIUM 1 GM VIAL IVPB ONE (14:30)
[2022-05-21] MEDS ORDERED: ceFAZolin SODIUM 1 GM VIAL ONE (14:31)
[2022-05-21] MEDS ORDERED: BUPIVACAINE HCL/PF 0.25% (2.5MG/ML) 10 ML VIAL IJ ONE (18:00)
[2022-05-21] MEDS ORDERED: ACETAMINOPHEN 1000 MG/100 ML BAG IVPB ONE ×2 (18:30→18:58)
[2022-05-21] MEDS ORDERED: ONDANSETRON 4 MG/2 ML VIAL IVPUSH PRN ×2 (18:30→18:58)
[2022-05-21] MEDS ORDERED: LACTATED RINGERS SOLUTION 1,000 ML IV SCH ×2 (18:30→18:58)
[2022-05-21] MEDS ORDERED: PROMETHAZINE HCL 25 MG/1 ML VIAL IVPB PRN ×2 (18:30→18:58)
[2022-05-21] MEDS ORDERED: METOPROLOL TARTRATE 5 MG/5 ML VIAL IVPB PRN (18:58)
[2022-05-21] MEDS ORDERED: PHENOL 177 ML SPRAY BOTTLE MM PRN (18:58)
[2022-05-21] MEDS ORDERED: ACETAMINOPHEN INJECTION 100 ML IVPB ONE (19:08)
[2022-05-21] MEDS ORDERED: hydrALAZINE HCL 20 MG/ML VIAL ONE (19:31)
[2022-05-21] MEDS: FAT EMULSION/OLIVE/SOY/PHOSPHO 250 ML IV SCH (22:18)
[2022-05-22] MEDS: hydrALAZINE HCL 20 MG/ML VIAL IVPUSH SCH ×3 (02:40→15:38)
[2022-05-22] MEDS: INSULIN SLIDING SCALE (NOVOLOG) 1 VIAL SQ SCH ×4 (06:42→21:23)
[2022-05-22 09:12] LABS: BASO % 0.1 % (0-2.0); EOS % 0.2 % (0-4.5); HEMATOCRIT 33.1 % (32.4-45.2); HEMOGLOBIN 10.9 GM/dL (10.7-15.3); LYMPH % 4.2 % (8-40); MCH 28.3 pg (25.7-33.7); MEAN CELL VOLUME 85.7 fl (80-96); MEAN PLT VOLUME 8.6 fl (7.5-11.1); MONO % 7.5 % (3.8-10.2); PLATELET COUNT 302 10^3/uL (134-434); RBC 3.86 M/mm3 (3.60-5.2); WHITE BLOOD COUNT 20.3 K/mm3 (4.0-10.0)
[2022-05-22 09:14] LABS: INR 1.1 (0.83-1.09); PROTHROMBIN TIME (PATIENT) 12.8 SEC (9.7-13.0)
[2022-05-22] MEDS ORDERED: AMINO ACIDS 4.25%/D5W 1,000 ML IV SCH ×2 (09:45→17:36)
[2022-05-22] MEDS: PANTOPRAZOLE SODIUM 40 MG VIAL IVPUSH SCH (09:56)
[2022-05-22] MEDS: COLLAGENASE CLOSTRIDIUM HIST. 30 GRAMS TUBE TP SCH (10:00)
[2022-05-22 10:05] LABS: MAGNESIUM 1.8 mg/dL (1.8-2.4)
[2022-05-22 10:33] LABS: ALBUMIN 2.4 g/dl (3.4-5.0); BLOOD UREA NITROGEN 22.8 mg/dL (7-18)
[2022-05-22 10:37] LABS: CREATININE 0.4 mg/dL (0.55-1.3)
[2022-05-22 10:39] LABS: BILIRUBIN,TOTAL 0.6 mg/dL (0.2-1); TOT PROT 5.4 g/dl (6.4-8.2)
[2022-05-22 10:48] LABS: ANISOCYTOSIS 0; HELMET CELLS 0; HOWELL-JOLLY BODIES 0; MACROCYTOSIS 0; OVALOCYTE 0; ROULEAU 0; SICKELED CELLS 0; TARGET CELLS 0; TEAR DROP CELLS 0; TOXIC GRANULATION 0
[2022-05-22 11:01] LABS: CALCIUM 8.3 mg/dL (8.5-10.1)
[2022-05-22] MEDS: MULTIVIT INJ. ADULT COMBO WITH VIT K 1 COMBO 10 ML VIAL IV SCH ×2 (14:36→20:46)
[2022-05-22] MEDS: AMINO ACIDS 4.25%/D5W 1,000 ML IV SCH ×2 (14:36→20:38)
[2022-05-22] MEDS: METOPROLOL TARTRATE 25 MG TABLET (FP) GT SCH (21:41)
[2022-05-22] MEDS: FAT EMULSION/OLIVE/SOY/PHOSPHO 250 ML IV SCH (21:41)
[2022-05-23] MEDS: AMINO ACIDS 4.25%/D5W 1,000 ML IV SCH (05:04)
[2022-05-23] MEDS: INSULIN SLIDING SCALE (NOVOLOG) 1 VIAL SQ SCH ×4 (06:23→23:20)
[2022-05-23] MEDS ORDERED: amLODIPine BESYLATE 5 MG TABLET (FP) PO SCH (10:00)
[2022-05-23] MEDS: PANTOPRAZOLE SODIUM 40 MG VIAL IVPUSH SCH (10:12)
[2022-05-23] MEDS: METOPROLOL TARTRATE 25 MG TABLET (FP) GT SCH ×2 (10:12→22:17)
[2022-05-23] MEDS: COLLAGENASE CLOSTRIDIUM HIST. 30 GRAMS TUBE TP SCH (13:00)
[2022-05-23 13:39] LABS: HEMATOCRIT 30.8 % (32.4-45.2); HEMOGLOBIN 10.2 GM/dL (10.7-15.3); MCH 28.6 pg (25.7-33.7); MCHC 33.1 g/dl (32.0-36.0); MEAN CELL VOLUME 86.4 fl (80-96); MEAN PLT VOLUME 8.8 fl (7.5-11.1); PLATELET COUNT 240 10^3/uL (134-434); RBC 3.56 M/mm3 (3.60-5.2); RDW 17.7 % (11.6-15.6); WHITE BLOOD COUNT 18.4 K/mm3 (4.0-10.0)
[2022-05-23 14:03] LABS: ANISOCYTOSIS 1+; MACROCYTOSIS 0
[2022-05-23 14:05] LABS: ALBUMIN 2.2 g/dl (3.4-5.0); BLOOD UREA NITROGEN 20.5 mg/dL (7-18); CALCIUM 7.7 mg/dL (8.5-10.1); MAGNESIUM 1.8 mg/dL (1.8-2.4)
[2022-05-23 14:10] LABS: BILIRUBIN,TOTAL 0.7 mg/dL (0.2-1)
[2022-05-23 14:15] LABS: CREATININE 0.5 mg/dL (0.55-1.3)
[2022-05-23] MEDS: ACETAMINOPHEN 650 MG/20.3 ML ORAL SOLUTION (CUPS) GT PRN (17:29)
[2022-05-23] MEDS: MULTIVIT INJ. ADULT COMBO WITH VIT K 1 COMBO 10 ML VIAL IV SCH (18:20)
[2022-05-23] MEDS: ATORVASTATIN CA 80 MG TABLET (FP) GT SCH (22:17)
[2022-05-24] MEDS: INSULIN SLIDING SCALE (NOVOLOG) 1 VIAL SQ SCH ×4 (06:11→21:49)
[2022-05-24] MEDS: COLLAGENASE CLOSTRIDIUM HIST. 30 GRAMS TUBE TP SCH (10:00)
[2022-05-24] MEDS: METOPROLOL TARTRATE 25 MG TABLET (FP) GT SCH ×2 (10:37→21:50)
[2022-05-24] MEDS: amLODIPine BESYLATE 5 MG TABLET (FP) GT SCH (10:37)
[2022-05-24] MEDS: PANTOPRAZOLE SODIUM 40 MG VIAL IVPUSH SCH (10:37)
[2022-05-24] MEDS: MULTIVIT-MINERALS ORAL LIQUID GT SCH (10:38)
[2022-05-24] MEDS: PIPERACILLIN/TAZOB 3.375 GM 3.375 GM in DEXTROSE 5%-WATER - 50 ML IVPB SCH ×2 (11:00→18:24)
[2022-05-24] MEDS: ACETAMINOPHEN 650 MG/20.3 ML ORAL SOLUTION (CUPS) GT PRN (11:20)
[2022-05-24] MEDS ORDERED: FUROSEMIDE 40 MG/4 ML INJECTABLE VIAL IVPUSH ONE (14:30)
[2022-05-24] MEDS: ATORVASTATIN CA 80 MG TABLET (FP) GT SCH (21:50)
[2022-05-25] MEDS: PIPERACILLIN/TAZOB 3.375 GM 3.375 GM in DEXTROSE 5%-WATER - 50 ML IVPB SCH ×3 (02:27→17:38)
[2022-05-25] MEDS: INSULIN SLIDING SCALE (NOVOLOG) 1 VIAL SQ SCH ×4 (06:44→22:01)
[2022-05-25 08:41] LABS: HEMATOCRIT 31.4 % (32.4-45.2); HEMOGLOBIN 10.2 GM/dL (10.7-15.3); MCH 27.8 pg (25.7-33.7); MCHC 32.4 g/dl (32.0-36.0); MEAN PLT VOLUME 9.9 fl (7.5-11.1); PLATELET COUNT 233 10^3/uL (134-434); RBC 3.66 M/mm3 (3.60-5.2)
[2022-05-25 09:01] LABS: ALBUMIN 1.9 g/dl (3.4-5.0); BLOOD UREA NITROGEN 17.5 mg/dL (7-18)
[2022-05-25 09:04] LABS: CREATININE 0.6 mg/dL (0.55-1.3)
[2022-05-25 09:06] LABS: BILIRUBIN,TOTAL 1.5 mg/dL (0.2-1); TOT PROT 4.8 g/dl (6.4-8.2)
[2022-05-25] MEDS: amLODIPine BESYLATE 5 MG TABLET (FP) GT SCH (09:12)
[2022-05-25] MEDS: MULTIVIT-MINERALS ORAL LIQUID GT SCH (09:12)
[2022-05-25] MEDS: METOPROLOL TARTRATE 25 MG TABLET (FP) GT SCH ×2 (09:12→21:56)
[2022-05-25] MEDS: PANTOPRAZOLE SODIUM 40 MG VIAL IVPUSH SCH (09:14)
[2022-05-25 11:32] LABS: ANISOCYTOSIS 0; HELMET CELLS 0; HOWELL-JOLLY BODIES 0; MACROCYTOSIS 0; OVALOCYTE 0; ROULEAU 0; SICKELED CELLS 0; TARGET CELLS 0; TEAR DROP CELLS 0; TOXIC GRANULATION 0
[2022-05-25] MEDS ORDERED: FUROSEMIDE 40 MG/4 ML INJECTABLE VIAL IVPUSH ONE (12:38)
[2022-05-25] MEDS: KCL 10 MEQ IVPB 10 MEQ/100 ML INFUS.BAG IVPB SCH ×2 (13:42→15:34)
[2022-05-25] MEDS: COLLAGENASE CLOSTRIDIUM HIST. 30 GRAMS TUBE TP SCH (13:42)
[2022-05-25] MEDS: AMINO ACIDS 4.25%/D5W 1,000 ML IV SCH (19:05)
[2022-05-25] MEDS: ATORVASTATIN CA 80 MG TABLET (FP) GT SCH (21:56)
[2022-05-26] MEDS: PIPERACILLIN/TAZOB 3.375 GM 3.375 GM in DEXTROSE 5%-WATER - 50 ML IVPB SCH ×3 (01:37→18:19)
[2022-05-26] MEDS: INSULIN SLIDING SCALE (NOVOLOG) 1 VIAL SQ SCH ×4 (06:24→21:10)
[2022-05-26] MEDS: amLODIPine BESYLATE 5 MG TABLET (FP) GT SCH (10:03)
[2022-05-26] MEDS: METOPROLOL TARTRATE 25 MG TABLET (FP) GT SCH ×2 (10:03→21:10)
[2022-05-26] MEDS: MULTIVIT-MINERALS ORAL LIQUID GT SCH (10:03)
[2022-05-26] MEDS: PANTOPRAZOLE SODIUM 40 MG VIAL IVPUSH SCH (10:03)
[2022-05-26] MEDS: COLLAGENASE CLOSTRIDIUM HIST. 30 GRAMS TUBE TP SCH (10:04)
[2022-05-26 10:07] LABS: SODIUM 142 mmol/L (136-145)
[2022-05-26 10:12] LABS: HEMATOCRIT 29.3 % (32.4-45.2); HEMOGLOBIN 9.7 GM/dL (10.7-15.3); MCH 28.3 pg (25.7-33.7); MEAN CELL VOLUME 85.5 fl (80-96); MEAN PLT VOLUME 8.8 fl (7.5-11.1); PLATELET COUNT 271 10^3/uL (134-434); RBC 3.42 M/mm3 (3.60-5.2); RDW 17.9 % (11.6-15.6); WHITE BLOOD COUNT 18.2 K/mm3 (4.0-10.0)
[2022-05-26 10:16] LABS: CO2 38 mmol/L (21-32); CREATININE 0.6 mg/dL (0.55-1.3); GLUCOSE,RANDOM 162 mg/dL (74-106); SGOT/AST 35 U/L (15-37)
[2022-05-26 10:17] LABS: BLOOD UREA NITROGEN 24.5 mg/dL (7-18)
[2022-05-26 10:18] LABS: BILIRUBIN,TOTAL 0.8 mg/dL (0.2-1); CALCIUM 8.1 mg/dL (8.5-10.1); TOT PROT 5.1 g/dl (6.4-8.2)
[2022-05-26 10:19] LABS: ALBUMIN 1.8 g/dl (3.4-5.0); ALK PHOS 142 U/L (45-117)
[2022-05-26 10:20] LABS: ANION GAP 5 MMOL/L (8-16); CHLORIDE 99 mmol/L (98-107); SGPT/ALT 65 U/L (13-61)
[2022-05-26] MEDS ORDERED: POTASSIUM CHLORIDE ORAL LIQUID 20 MEQ/15 ML GT ONE (12:00)
[2022-05-26] MEDS: KCL 10 MEQ IVPB 10 MEQ/100 ML INFUS.BAG IVPB SCH ×3 (12:26→15:31)
[2022-05-26] MEDS: FUROSEMIDE 20 MG TABLET (FP) GT SCH (12:26)
[2022-05-26] MEDS: AMINO ACIDS 4.25%/D5W 1,000 ML IV SCH (12:57)
[2022-05-26 14:09] LABS: ARTERIAL BLD GAS O2 SATURATION 80.1 % (95-98); ARTERIAL BLOOD GAS BASE EXCESS 12.2 mmol/L (-2-2); ARTERIAL BLOOD GAS PO2 41.5 mmHg (80-100); ARTERIAL BLOOD GAS pH 7.489 (7.350-7.450)
[2022-05-26 14:11] LABS: ALLENS TEST POSITIVE
[2022-05-26] MEDS: ACETAMINOPHEN 650 MG/20.3 ML ORAL SOLUTION (CUPS) GT PRN (18:26)
[2022-05-26] MEDS: ATORVASTATIN CA 80 MG TABLET (FP) GT SCH (21:10)
[2022-05-27] MEDS: PIPERACILLIN/TAZOB 3.375 GM 3.375 GM in DEXTROSE 5%-WATER - 50 ML IVPB SCH ×3 (01:45→18:06)
[2022-05-27] MEDS: INSULIN SLIDING SCALE (NOVOLOG) 1 VIAL SQ SCH ×4 (06:00→23:36)
[2022-05-27 08:58] LABS: HEMOGLOBIN 9.7 GM/dL (10.7-15.3); MCH 27.7 pg (25.7-33.7); MCHC 32.5 g/dl (32.0-36.0); MEAN CELL VOLUME 85.1 fl (80-96); MEAN PLT VOLUME 8.9 fl (7.5-11.1); PLATELET COUNT 296 10^3/uL (134-434); RBC 3.52 M/mm3 (3.60-5.2); RDW 18.2 % (11.6-15.6); WHITE BLOOD COUNT 19.4 K/mm3 (4.0-10.0)
[2022-05-27 08:59] LABS: SODIUM 139 mmol/L (136-145)
[2022-05-27 09:19] LABS: ALBUMIN 1.7 g/dl (3.4-5.0); CO2 33 mmol/L (21-32); GLUCOSE,RANDOM 176 mg/dL (74-106)
[2022-05-27 09:22] LABS: SGOT/AST 37 U/L (15-37); SGPT/ALT 53 U/L (13-61)
[2022-05-27 09:23] LABS: BILIRUBIN,TOTAL 0.9 mg/dL (0.2-1)
[2022-05-27 09:40] LABS: ALK PHOS 202 U/L (45-117); ANION GAP 7 MMOL/L (8-16); BLOOD UREA NITROGEN 26.2 mg/dL (7-18); CHLORIDE 99 mmol/L (98-107); CREATININE 0.6 mg/dL (0.55-1.3)
[2022-05-27] MEDS: POTASSIUM CHLORIDE ORAL LIQUID 20 MEQ/15 ML GT SCH (09:50)
[2022-05-27] MEDS: FUROSEMIDE 20 MG TABLET (FP) GT SCH (09:51)
[2022-05-27] MEDS: COLLAGENASE CLOSTRIDIUM HIST. 30 GRAMS TUBE TP SCH (09:51)
[2022-05-27] MEDS: METOPROLOL TARTRATE 25 MG TABLET (FP) GT SCH ×2 (09:51→23:14)
[2022-05-27] MEDS: amLODIPine BESYLATE 5 MG TABLET (FP) GT SCH (09:51)
[2022-05-27] MEDS: PANTOPRAZOLE SODIUM 40 MG VIAL IVPUSH SCH (09:51)
[2022-05-27] MEDS: MULTIVIT-MINERALS ORAL LIQUID GT SCH (09:53)
[2022-05-27 11:07] LABS: ANISOCYTOSIS 0; MACROCYTOSIS 0
[2022-05-27] MEDS ORDERED: POTASSIUM CHLORIDE ORAL LIQUID 20 MEQ/15 ML GT ONE (12:47)
[2022-05-27] MEDS: AMINO ACIDS 4.25%/D5W 1,000 ML IV SCH (13:09)
[2022-05-27] MEDS: ATORVASTATIN CA 80 MG TABLET (FP) GT SCH (23:14)
[2022-05-28] MEDS: PIPERACILLIN/TAZOB 3.375 GM 3.375 GM in DEXTROSE 5%-WATER - 50 ML IVPB SCH ×2 (01:50→10:53)
[2022-05-28] MEDS: INSULIN SLIDING SCALE (NOVOLOG) 1 VIAL SQ SCH ×3 (06:21→16:29)
[2022-05-28] MEDS: amLODIPine BESYLATE 5 MG TABLET (FP) GT SCH (10:49)
[2022-05-28] MEDS: FUROSEMIDE 20 MG TABLET (FP) GT SCH (10:49)
[2022-05-28] MEDS: METOPROLOL TARTRATE 25 MG TABLET (FP) GT SCH (10:49)
[2022-05-28] MEDS: MULTIVIT-MINERALS ORAL LIQUID GT SCH (10:49)
[2022-05-28] MEDS: PANTOPRAZOLE SODIUM 40 MG VIAL IVPUSH SCH (10:50)
[2022-05-28] MEDS: POTASSIUM CHLORIDE ORAL LIQUID 20 MEQ/15 ML GT SCH (10:50)
[2022-05-28] MEDS ORDERED: ALBUTEROL SO4 2.5/IPRATROPIUM 0.5 INH SOL 3 ML VIAL.NEB. NEB ONE (12:54)
[2022-05-28] MEDS ORDERED: methylPREDNISolone NA SUCC 40 MG/1 ML VIAL IVPUSH ONE (13:02)
[2022-05-28] MEDS ORDERED: methylPREDNISolone NA SUCC 125 MG/2 ML VIAL ONE (13:06)
[2022-05-28] MEDS ORDERED: FUROSEMIDE 40 MG/4 ML INJECTABLE VIAL IVPUSH ONE (14:13)
[2022-05-28] MEDS ORDERED: FUROSEMIDE 40 MG/4 ML INJECTABLE VIAL ONE (14:21)
[2022-05-28] MEDS: COLLAGENASE CLOSTRIDIUM HIST. 30 GRAMS TUBE TP SCH (14:51)
[2022-05-28] MEDS ORDERED: SODIUM CHLORIDE 1,000 ML IV STA (15:32)
[2022-05-28 20:20] VITALS: RESP 18
[2022-05-28 20:25] VITALS: BP 73/36; PULSE 66; TEMP 97.2
== END 2022-05-28 17:54 | disposition expired | DRG 981 ==
LOC: JER 10:42 → JERBED 14:01 → JICU 14:48 → J4W 05-08 13:58 → J5S 05-13 15:43
PROVIDERS: ADMIT Internal Medicine Pulmonary Disease; ATTEND Internal Medicine
PROC: 0DH64UZ Insertion of Feeding Device into Stomach, Percutaneous Endoscopic Approach (ICD-10-PCS; 2022-05-21)
PROC: 3E0G76Z Introduction of Nutritional Substance into Upper GI, Via Natural or Artificial Opening (ICD-10-PCS; 2022-05-21)
PROC: 0DJ08ZZ Inspection of Upper Intestinal Tract, Via Natural or Artificial Opening Endoscopic (ICD-10-PCS; 2022-05-21)
PROC: 0BQT4ZZ Repair Diaphragm, Percutaneous Endoscopic Approach (ICD-10-PCS; principal; 2022-05-21 12:00)
PROC: 8E0W4CZ Robotic Assisted Procedure of Trunk Region, Percutaneous Endoscopic Approach (ICD-10-PCS; 2022-05-21 12:00)
DX: I61.9 Nontraumatic intracerebral hemorrhage, unspecified (principal); A41.9 Sepsis, unspecified organism; E43 Unspecified severe protein-calorie malnutrition; G93.6 Cerebral edema; J69.0 Pneumonitis due to inhalation of food and vomit; J96.00 Acute respiratory failure, unspecified whether with hypoxia or hypercapnia; I16.1 Hypertensive emergency; N39.0 Urinary tract infection, site not specified; G81.91 Hemiplegia, unspecified affecting right dominant side; R47.01 Aphasia; E11.9 Type 2 diabetes mellitus without complications; I10 Essential (primary) hypertension; Z86.16 Personal history of COVID-19; R29.717 NIHSS score 17; Z79.84 Long term (current) use of oral hypoglycemic drugs; K21.9 Gastro-esophageal reflux disease without esophagitis; E78.5 Hyperlipidemia, unspecified; K57.90 Diverticulosis of intestine, part unspecified, without perforation or abscess without bleeding; K44.9 Diaphragmatic hernia without obstruction or gangrene; E88.09 Other disorders of plasma-protein metabolism, not elsewhere classified; D72.829 Elevated white blood cell count, unspecified; K59.00 Constipation, unspecified; R29.6 Repeated falls; R91.8 Other nonspecific abnormal finding of lung field; R29.810 Facial weakness; R13.10 Dysphagia, unspecified; Z68.25 Body mass index [BMI] 25.0-25.9, adult
CPT/HCPCS: 0241U-QW; 36415; 36600; 43752; 70450-TC; 71045-TC-FY; 71250-TC; 74018-TC-FY; 74176-TC; 74230-TC-FY; 80053; 80061; 81003; 82550; 82553; 82803; 82962; 82977; 83036; 83735; 83880; 84100; 84484; 85025; 85027; 85610; 85730; 86850; 86900; 86901; 87040; 87086; 87186; 88302-TC; 92611-GN; 93005; 93010; 94640; 94760; 97116-GP; 97162-GP; 99285-25; C9803-CS; E0186; U0003; U0005